=== PATIENT | female | born 1985 | race African-American/Black ===

== ENCOUNTER 2022-02-19 00:24 | Inpatient (IN) | payer MEDICARE, OTHER ==
[~2022-02-19] VITALS: Ht 160 cm; Wt 89.4 kg
--- NOTE | 2022-02-19 00:55 | NUR ---
SHEY FROM SNF FOR AMS AND LOW BP PER STAFF UPON TRIAGE PT C/O VERGARA.
[2022-02-19] MEDS ORDERED: HYDROCODONE/APAP 5/325MG TABLET GT ONE (01:00)
[2022-02-19] MEDS ORDERED: IV NS 0.9% 500 ML BAG IV ONE (01:00)
[2022-02-19] MEDS ORDERED: HYDROCODONE/APAP 5/325MG TABLET ONE (01:01)
--- NOTE | 2022-02-19 01:30 | NUR ---
URINE COLLECTED AND SENT TO LAB
--- NOTE | 2022-02-19 02:45 | NUR ---
AGENCY SALES DEVELOPMENT ASSOCIATE AT BEDSIDE
[2022-02-19 02:54] LABS: BILIRUBIN,URINE NEGATIVE (NEGATIVE); COLOR,URINE YELLOW (YELLOW); LEUKOCYTE ESTERASE ,URINE LARGE (NEGATIVE); NITRITE, URINE NEGATIVE (NEGATIVE); PROTEIN,URINE 100 mg/dl (NEGATIVE); UGLUCOSE NEGATIVE (NEGATIVE); UROBILINOGEN,URINE 0.2 EU/dL (0.2)
[2022-02-19 02:56] LABS: PH,URINE >8.5 (5.0-8.0)
[2022-02-19] MEDS ORDERED: CEFTRIAXONE 1 G VIAL ONE ×2 (03:15→06:38)
[2022-02-19 03:30] LABS: BASOPHILS % (AUTO) 0.1 % (0.0-2.0); HEMATOCRIT 30 % (33-45); HEMOGLOBIN 9.4 g/dL (11.5-14.8); LYMPHOCYTES # (AUTO) 1.5 K/uL (0.8-4.8); LYMPHOCYTES % (AUTO) 7.8 % (20.0-44.0); MEAN CORPUSCULAR HGB CONC 31 g/dl (31.0-36.0); MEAN CORPUSCULAR VOLUME 89 fL (82-100); NEUTROPHILS # (AUTO) 17.1 K/uL (1.8-8.9); NEUTROPHILS % (AUTO) 87.1 % (43.0-81.0); PLATELET COUNT (AUTO) 292 K/uL (150-450); RED BLOOD CELL COUNT(AUTO) 3.43 MIL/uL (4.0-5.2); WHITE BLOOD COUNT (AUTO) 19.7 K/uL (4.3-11.0)
[2022-02-19] MEDS ORDERED: CEFTRIAXONE 1GM BAG (ER ONLY) 1 GM/50 ML PIGGYBACK IV ONE (03:30)
[2022-02-19 03:41] LABS: CALCIUM, SERUM 7.2 mg/dL (8.5-10.1); CREATININE 2.4 mg/dL (0.6-1.3); POTASSIUM 3.2 mmol/L (3.5-5.1)
[2022-02-19] MEDS ORDERED: DEXTROSE 50%-WATER 50 ML DISP.SYRIN ONE ×2 (03:49→04:56)
[2022-02-19 03:51] LABS: BILIRUBIN,DIRECT 0.2 mg/dL (0.0-0.2); BILIRUBIN,TOTAL 0.3 mg/dL (0.2-1.0); TOTAL PROTEIN, SERUM 8.2 g/dL (6.4-8.2)
[2022-02-19 03:55] LABS: ALBUMIN 1.2 g/dL (3.4-5.0)
--- NOTE | 2022-02-19 03:56 | NUR ---
CRITICAL LAB: ALBUMIN 1.2. DR. CHUNG AWARE
[2022-02-19] MEDS ORDERED: DEXTROSE 50%-WATER 50 ML DISP.SYRIN IV ONE ×2 (04:00→05:00)
[2022-02-19] MEDS: ALBUMIN 25% 12.5 GM/50 ML BOTTLE IV ONE ×2 (04:08→04:49)
--- NOTE | 2022-02-19 04:28 | NUR ---
BOWL TOPPER AT BEDSIDE
[2022-02-19] MEDS ORDERED: IV NS 0.9% 1,000 ML BAG IV ONE (04:30)
[2022-02-19] MEDS ORDERED: ALBUMIN 25% 100 ML IV ONE (04:36)
--- NOTE | 2022-02-19 04:52 | NUR ---
accu check blood sugar 44 md notified
[2022-02-19] MEDS ORDERED: MAG HYDROX/AL HYDROX/SIMETH 30 ML UDC PO PRN (05:00)
[2022-02-19] MEDS ORDERED: MAGNESIUM HYDROXIDE 30 ML UDC PO PRN (05:00)
[2022-02-19] MEDS ORDERED: ZOLPIDEM TARTRATE 5 MG TABLET PO PRN (05:00)
[2022-02-19] MEDS ORDERED: ONDANSETRON HCL/PF 4 MG/2 ML VIAL IVP PRN (05:00)
[2022-02-19] MEDS ORDERED: Z GUARD REMEDY 4 OZ OINT TP PRN (05:00)
[2022-02-19] MEDS ORDERED: ACETAMINOPHEN 325 MG TABLET PO PRN (05:00)
--- NOTE | 2022-02-19 05:24 | NUR ---
DORETHA IV LINE INFILTRATED. NEW IV LINE STARTED ON STORM 20G
--- NOTE | 2022-02-19 05:30 | NUR ---
NOTED HUNG CATH WAS OUT ATTEMPTED TO REINSERT X2 AND WAS UNSUCCSFUL
--- NOTE | 2022-02-19 05:46 | NUR ---
2 NURSES ATTEMPTED TO REINSERT CATH AND WAS UNSUDSEFFUL
[2022-02-19 06:22] LABS: BACTERIA,URINE 4+ /HPF (None Seen); RBC,URINE 0-2 /HPF (0-2); WBC,URINE 0-2 /HPF (0-3)
--- NOTE | 2022-02-19 06:40 | NUR ---
COVID SWAB COLLECTED SENT TO LAB
--- NOTE | 2022-02-19 07:02 | NUR ---
accuchcheck blood sugar 101 aware.
--- NOTE | 2022-02-19 07:32 | NUR ---
REPORT GIVEN TO DANICA SUTTON FOR JANES
[2022-02-19] MEDS ORDERED: CHLO473M5 MM (07:49)
[2022-02-19] MEDS ORDERED: BENZ1LOZ58 MM (07:49)
[2022-02-19] MEDS ORDERED: ZINC1CAP3 PO (07:49)
[2022-02-19] MEDS ORDERED: FOLI0.4T6 PO (07:49)
[2022-02-19] MEDS ORDERED: GABA-532 PO (07:49)
[2022-02-19] MEDS ORDERED: ONDA4TAB5 PO (07:49)
[2022-02-19] MEDS ORDERED: ERGO500093 PO (07:49)
[2022-02-19] MEDS ORDERED: AMIN30LI2 PO (07:49)
[2022-02-19] MEDS ORDERED: HYDR-4303 PO (07:49)
[2022-02-19] MEDS ORDERED: BACL20TA PO (07:49)
[2022-02-19] MEDS ORDERED: MULT-24 PO (07:49)
[2022-02-19] MEDS ORDERED: ACET-868 PO (07:49)
[2022-02-19] MEDS ORDERED: ARIP2TAB3 PO (07:49)
[2022-02-19] MEDS ORDERED: FLUD0.1T PO (07:49)
[2022-02-19] MEDS ORDERED: HONE15GE TP (07:49)
[2022-02-19] MEDS ORDERED: DOCU250C14 PO (07:49)
[2022-02-19] MEDS ORDERED: MELA5TAB PO (07:49)
[2022-02-19] MEDS ORDERED: ASCO-340 PO (07:49)
[2022-02-19] MEDS ORDERED: PANT40TA2 PO (07:49)
[2022-02-19 08:07] LABS: LYMPHOCYTES % (MANUAL) 5 % (16-48); MONOCYTES % (MANUAL) 6 % (0-11.0); NEUTROPHILS % (MANUAL) 89 (42-76)
--- NOTE | 2022-02-19 09:21 | NUR ---
PER CLS 10 MINS MORE FOR THE RESULT.
[2022-02-19] MEDS ORDERED: POTASSIUM CHLORIDE 10 MEQ TABLET.SA PO ONE (09:30)
--- NOTE | 2022-02-19 10:06 | NUR ---
GOING TO BED 103
[2022-02-19] MEDS ORDERED: POTASSIUM CHLORIDE 10 MEQ TABLET.SA ONE (10:08)
--- NOTE | 2022-02-19 10:11 | NUR ---
REPORT GIVEN TO LESLEY DUARTE FOR JANES.
--- NOTE | 2022-02-19 10:57 | NUR ---
picc line admin in right femoral area, intact , patent flushing at this time.
[2022-02-19] MEDS: ARIPIPRAZOLE 2 MG TABLET PO SCH (11:00)
[2022-02-19] MEDS: PANTOPRAZOLE 40 MG TABLET.DR PO SCH (11:00)
--- NOTE | 2022-02-19 11:01 | NUR ---
PT ACCEPTED TO [facility] UND[facility] DR[facility] RICK ROOM 423 PLEASE CALL [phone] TRANSPORT WITH [facility] ETA 45 MINS. PER CONNOR SEAMAN.
[2022-02-19 11:20] VITALS: BP 91/66
--- NOTE | 2022-02-19 11:20 | NUR ---
FILM BOOKERNAILHEAD PUNCHER NOTE RECEIVED PATIENT IN BED, FROM ER, DX SEPSIS/UTI, PER DR. LOS IQBAL, ALERT, AWAKE ORIENTED X 2-3, PT WITH TRACH COLLAR, ON COOL AEROSOL AT 4L O2 SAT 95%. NO SOB, NO DISTRESS, BREATHING EVEN, RESPIRATION UNLABORED.SINUS TACH HR 102 ON MONITOR, C/O 9/10 GENERALIZED PAIN, WILL ADMINISTER PAIN MEDS, RIGHT FEMORAL GROIN PICC LINE TLC, FLUSHES WELL, CDI, SITE CLEAR. HUNG CATH INSERTED, WITH SMALL AMOUNT OF CLOUDY URINE. SEE NURSING FLOWSHEET FOR SKIN ISSUES. HAS MULTIPLE WOUNDS, ABLE TO TAKE PICTURE OF RIGHT UPPER BACK AND SACRAL/LOWER BACK. REFUSED TO HAVE THE REST OF SKIN ASSESSMENT AND PHOTOS OF SKIN ISSUES. SAFETY MEASURES IN PLACE. BED LOW/LOCKED. HOB 3O DEG, SR UP X 2, CALL LIGHT WITHIN REACH. WILL CONTINUE TO MONITOR.
[2022-02-19] MEDS: MORPHINE SULFATE INJ 4 MG/ML DISP.SYRIN IV PRN ×2 (11:38→19:57)
[2022-02-19] MEDS: PROSOURCE / PROSTAT (PYXIS) 30 ML UDC PO SCH ×2 (12:53→16:49)
[2022-02-19] MEDS: FLUDROCORTISONE 0.1 MG TABLET PO SCH ×2 (12:53→21:00)
[2022-02-19] MEDS: GABAPENTIN 100 MG CAPSULE PO SCH ×2 (12:53→16:49)
[2022-02-19] MEDS: IV NS 0.9% 1,000 ML IV PRN ×2 (14:12→23:11)
--- NOTE | 2022-02-19 15:03 | NUR ---
RN NOTES PATIENT ASKING FOR US OF BLE,STATED THERES SOMETHING WRONG WITH IT. NEW ORDERS RECEIVED FOR DVT STUDY OF BOTH LEGS. BP OS 54/25 REPEAT IS 67/36. COULD NOT GIVE PAIN MEDS. NEW ORDER TO GIVE 500 ML NS BOLUS ALSO INFORMED DR. IQBAL, PATIENT REFUSED ALL HER ORAL MEDICATIONS EARLIER INCLUDING FLORINEF AND NEURONTIN, NEXT DOSE FOR PO FLORINEF IS NOT UNTIL 2100. NO NEW ORDERS RECEIVED.
[2022-02-19 16:00] VITALS: BP 80/64
[2022-02-19] MEDS ORDERED: IV NS 0.9% 500 ML IV ONE (16:00)
--- NOTE | 2022-02-19 16:38 | NUR ---
RN NOTES DR. LOS IQBAL, NOTIFIED REPEAT BP 87/34. PER HIM IT'S FINE. NO NEW ORDERS.
[2022-02-19] MEDS: CHLORHEXIDINE GLUCONATE 15 ML UDC MM SCH (16:49)
--- NOTE | 2022-02-19 18:28 | NUR ---
RN NOTES COLOSTOMY BAG IN PLACE ON LEFT ABDOMEN
--- NOTE | 2022-02-19 18:32 | NUR ---
IMPROVEMENT ANALYST CLOSING NOTE PATIENT IN BED, ALERT, AWAKE ORIENTED X 2-3, PT WITH TRACH COLLAR, ON COOL AEROSOL AT 4L O2 SAT 97%. NO SOB, NO DISTRESS, BREATHING EVEN, RESPIRATION UNLABORED.SINUS TACH HR 105 ON MONITOR, C/O 8/10 GENERALIZED PAIN, ON PAIN MEDS. RIGHT FEMORAL GROIN PICC LINE TLC, WITH NS AT 125 ML/HR, CDI, SITE CLEAR. HUNG CATH INSERTED, WITH SMALL AMOUNT OF CLOUDY URINE. HAS MULTIPLE WOUNDS, ABLE TO TAKE PICTURE OF RIGHT UPPER BACK AND SACRAL/LOWER BACK. REFUSED TO HAVE THE REST OF SKIN ASSESSMENT AND PHOTOS OF SKIN ISSUES. SAFETY MEASURES IN PLACE. BED LOW/LOCKED. HOB 3O DEG, SR UP X 2, CALL LIGHT WITHIN REACH. ALL NEEDS MET AT THIS TIME. WILL ENDORSE TO NEXT SHIFT FOR JANES.
[2022-02-19] MEDS: LORAZEPAM 0.5 MG TABLET PO PRN ×3 (19:57→21:03)
[2022-02-19] MEDS: diphenhydrAMINE HCL ELIX 25 MG/10 ML UDC PO PRN ×3 (19:57→21:03)
--- NOTE | 2022-02-19 19:58 | NUR ---
RN Note Pt complains of feeling anxious and reports of 9/10 generalized pain. Pt also requests for benadryl. Pt given Benadryl 25 mg, morphine 4 mg, and ativan 0.5 mg. Will monitor for effectiveness.
[2022-02-19 20:00] VITALS: BP 191/82
--- NOTE | 2022-02-19 20:26 | NUR ---
RN Note Pt refused to take any meds orally. Benadryl and Ativan returned to [facility] appropriately.
--- NOTE | 2022-02-19 20:28 | NUR ---
RN Note Pt appears to be more relaxed after giving ativan and reports her pain is still there but has gone down.
[2022-02-19] MEDS: HEPARIN SODIUM, PORCINE 5000 UNITS/1 ML VIAL SQ SCH (21:00)
[2022-02-19] MEDS: DOCUSATE SODIUM 250 MG CAPSULE PO SCH (21:00)
--- NOTE | 2022-02-19 21:04 | NUR ---
RN Note Pt states she's changed her mind and wants to take her ativan and benadryl now. Pt successfully given both meds orally.
--- NOTE | 2022-02-19 21:26 | NUR ---
oil well logging engineer opening Note Pt received in bed, awake, A&O x2-3, noted to be groaning at the moment. Pt on T-piece cool aerosol with trach collar; current O2sat in mid to high 90s; no s/s of resp distress, no SOB noted, non-labored and equal breathing. Trach collar C/D/I/P. Attached to external monitor, currently showing ST with HR 102. Pt noted to have right femoral PICC line with NS at 125 ml/hr; intact and patent with no s/s of infiltration; flushes easily with no resistance. Bed in lowest position, call light within reach, side rails up x3. Will continue to monitor throughout the night.
--- NOTE | 2022-02-19 21:46 | NUR ---
RN Note Pt refused scheduled meds Colace 250 mg, fludrocortisone 0.1 mg, and heparin 5000 units.
[2022-02-20] VITALS: BP 55/27
--- NOTE | 2022-02-20 00:24 | NUR ---
RN Note Pt's current BP: 128/41, HR: 99.
[2022-02-20] MEDS: MORPHINE SULFATE INJ 4 MG/ML DISP.SYRIN IV PRN (00:36)
--- NOTE | 2022-02-20 00:37 | NUR ---
RN Note Pt complains of 10/10 generalized pain that's described as burning and aching. Pt requests for morphine. Pt administered morphine 4 mg IV. Will monitor for effectiveness.
--- NOTE | 2022-02-20 01:24 | NUR ---
TELE/RN: PT BP 55/27 WITH AUTOMATIC CUFF. 52/48 WITH MANUAL CUFF. PT IS ASYMPTOMATIC ALERT AND ORIENTED. SPOKE WITH DR. KATZ. NEW ORDER RECEIVED FOR 1000ML NS BOLUS x1 NOW. CARRIED OUT.
[2022-02-20] MEDS ORDERED: IV NS 0.9% 1,000 ML IV ONE ×2 (01:30→02:30)
--- NOTE | 2022-02-20 02:13 | NUR ---
RN Note After administering 1L of bolus, BP: 56/33 HR: 105. Notified Dr. Victor
--- NOTE | 2022-02-20 02:17 | NUR ---
TELE/RN: SPOKE WITH DR. KATZ ANOTHER 1000ML NS BOLUS ORDERED.
[2022-02-20 04:00] VITALS: BP 69/24
--- NOTE | 2022-02-20 04:53 | NUR ---
RN Note Took pt's manual BP 72/48. Addendum: 02/20/22 at 0457 by PRINCESS LELE SUTTON Pt remains A&O x3 with no s/s of confusion or loss of consciousness
--- NOTE | 2022-02-20 04:55 | NUR ---
TELE/RN: DR. KATZ NOTIFIED OF LATEST BP 72/48 NO NEW ORDERS AT THIS TIME.
[2022-02-20] MEDS ORDERED: CEFTRIAXONE 1 G in IV D5W 50 ML IV SCH ×2 (05:00→06:00)
[2022-02-20] MEDS: FLUDROCORTISONE 0.1 MG TABLET PO SCH ×3 (05:47→21:00)
--- NOTE | 2022-02-20 06:05 | NUR ---
TELE/RN: DR. KATZ MADE AWARE OF PT POSITIVE BLOOD CULTURES (GRAM NEGATIVE RODS) AND PT URINE OUTPUT. NO NEW ORDERS.
--- NOTE | 2022-02-20 06:32 | NUR ---
tetryl wringer operator Closing Note Pt remains in bed, A&O x2-3, slept intermittently throughout the night; currently asleep but easily arousable; pt able to make needs known. Pt remains on T-piece cool aerosol with trach collar at 4L; with O2sat ranging from 92%-95% during night; no s/s of resp distress, no SOB noted, non-labored and equal breathing. Pt attached to external monitor, remains ST with ST depression, HR 103. Right femoral PICC line with NS at 125 ml/hr; intact and patent with no s/s of infiltration; flushes easily with no resistance. Ostomy pink and moist with no s/s of necrosis; ostomy bag clean and empty. All due meds and fluids given. Bed in lowest position, call light within reach, side rails up x3. Will endorse to dayshift nurse to continue care.
[2022-02-20 06:35] LABS: BASOPHILS % (AUTO) 0.2 % (0.0-2.0); EOSINOPHILS % (AUTO) 3.8 % (0.0-6.0); HEMATOCRIT 25 % (33-45); LYMPHOCYTES # (AUTO) 0.9 K/uL (0.8-4.8); LYMPHOCYTES % (AUTO) 8.4 % (20.0-44.0); MEAN CORPUSCULAR HGB CONC 32 g/dl (31.0-36.0); MEAN CORPUSCULAR VOLUME 89 fL (82-100); MONOCYTES # (AUTO) 0.4 K/uL (0.1-1.30); MONOCYTES % (AUTO) 3.5 % (2.0-12.0); NEUTROPHILS # (AUTO) 9.3 K/uL (1.8-8.9); NEUTROPHILS % (AUTO) 84.1 % (43.0-81.0); PLATELET COUNT (AUTO) 186 K/uL (150-450); RED BLOOD CELL COUNT(AUTO) 2.86 MIL/uL (4.0-5.2); WHITE BLOOD COUNT (AUTO) 11.1 K/uL (4.3-11.0)
--- NOTE | 2022-02-20 07:00 | NUR ---
bindery machine setter opening Note Pt received in bed, SSLEEP, BUT ANSWER QUESTIONSA&O x2, . Pt on T-piece cool aerosol with trach collar; current O2sat in mid to high 90s; no s/s of resp distress, no SOB noted, non-labored and equal breathing. Trach collar C/D/I/P. Attached to external monitor, currently showing ST with HR 102. Pt noted to have right femoral PICC line with NS at 125 ml/hr; intact and patent with no s/s of infiltration; flushes easily with no resistance. Bed in lowest position, call light within reach, side rails up x3. Will continue to monitor throughout the night.
[2022-02-20 07:02] LABS: CALCIUM, SERUM 6.4 mg/dL (8.5-10.1); PHOSPHORUS 2.8 mg/dL (2.5-4.9); POTASSIUM 3.2 mmol/L (3.5-5.1)
[2022-02-20] MEDS: PANTOPRAZOLE 40 MG TABLET.DR PO SCH ×2 (07:30→08:40)
[2022-02-20 07:41] LABS: MAGNESIUM 1.2 mg/dL (1.8-2.4)
[2022-02-20 08:00] VITALS: BP 112/94
[2022-02-20] MEDS ORDERED: DEXTROSE 50%-WATER 50 ML DISP.SYRIN IVP PRN (08:00)
[2022-02-20 08:48] LABS: THYROID STIMULATING HORMONE 1.407 uIU/mL (0.358-3.74)
[2022-02-20] MEDS: DOCUSATE SODIUM 250 MG CAPSULE PO SCH ×3 (09:00→21:00)
[2022-02-20] MEDS: ARIPIPRAZOLE 2 MG TABLET PO SCH ×2 (09:00→09:17)
[2022-02-20] MEDS: MULTIVITAMINS,THERAGRAN 1 UDTAB TABLET PO SCH ×2 (09:00→09:16)
[2022-02-20] MEDS: FOLIC ACID 1 MG TABLET PO SCH ×2 (09:00→09:17)
[2022-02-20] MEDS: ZINC SULFATE 220 MG CAPSULE PO SCH ×2 (09:00→09:16)
[2022-02-20] MEDS: ASCORBIC ACID 500 MG TABLET PO SCH ×2 (09:00→09:18)
[2022-02-20] MEDS: GABAPENTIN 100 MG CAPSULE PO SCH ×3 (09:00→17:09)
[2022-02-20] MEDS: CHLORHEXIDINE GLUCONATE 15 ML UDC MM SCH ×3 (09:00→17:00)
[2022-02-20] MEDS: PROSOURCE / PROSTAT (PYXIS) 30 ML UDC PO SCH ×4 (09:00→17:00)
[2022-02-20] MEDS: HEPARIN SODIUM, PORCINE 5000 UNITS/1 ML VIAL SQ SCH ×2 (09:19→21:00)
[2022-02-20] MEDS: HYDROCORTISONE SOD SUCCINATE 100 MG/2 ML VIAL IV SCH ×3 (09:34→23:16)
[2022-02-20] MEDS ORDERED: MAGNESIUM OXIDE 400 MG TABLET PO ONE (10:00)
[2022-02-20 10:29] LABS: ABG BASE EXCESS -10.6 mmol/L; ABG OXYGEN SATURATION 97.4 % (92.0-98.5); ABG PCO2 30.1 mmHg (35.0-45.0); ABG PH 7.305 (7.350-7.450); AaDO2 135.2 mmHg; COHb 0.2 % (0.5-1.5); MetHb 0.3 % (0.0-1.5); O2Hb 96.9 % (94.0-97.0); SITE, ABG Left Radial
[2022-02-20] MEDS: POTASSIUM CHLORIDE 10 MEQ TABLET.SA PO SCH ×2 (11:00→12:00)
--- NOTE | 2022-02-20 11:10 | NUR ---
RN NOTES: PT REFUSES TO RECEIVE ALL HER ORAL MEDS X 3 , EXPLAIN RISK AND BENEFITS STILL REFUSES, LOS IQBAL NP AWARE
[2022-02-20 12:00] VITALS: BP 103/62
[2022-02-20] MEDS: IV NS 0.9% 1,000 ML IV PRN (12:51)
[2022-02-20] MEDS: POTASSIUM CL. PREMIX PERIPHER. 50 ML IV SCH ×4 (12:51→16:18)
[2022-02-20] MEDS ORDERED: MENTHOL/CETYLPYRD (CEPACOL) 1 LOZ LOZENGE PO PRN (13:00)
[2022-02-20] MEDS: MENTHOL/CETYLPYRD (CEPACOL) 1 LOZ LOZENGE MM PRN ×2 (15:27→17:15)
[2022-02-20 16:00] VITALS: BP 69/34
[2022-02-20] MEDS ORDERED: IV NS 0.9% 500 ML IV ONE (17:30)
--- NOTE | 2022-02-20 17:30 | NUR ---
RN notes: BP 68/33 called Enmanuel Yadav MOBILE LOUNGE DRIVER with order to give NS 500 ml bolus now and encourage pt to take her florinef will help her renal insufficiency and regulate her blood pressure
[2022-02-20] MEDS ORDERED: CEFEPIME 1 GM in IV D5W 50 ML IV SCH (19:30)
[2022-02-20 20:00] VITALS: BP 104/86
--- NOTE | 2022-02-20 20:00 | NUR ---
second floor operator opening Note Pt in bed, awake, A&O x2-3, currently asleep but easily arousable. Pt on T-piece cool aerosol at 4L with trach collar; current O2sat 98%; no s/s of resp distress, no SOB noted, non-labored and equal breathing. Trach collar C/D/I/P. On external monitor, ST with HR 105. Pt femoral PICC line intact and patent with NS at 125 ml/hr; flushes easily with no resistance. Claros draining cloudy and jenna urine. Bed in lowest position, call light within reach, side rails up x3. Will continue to monitor throughout the night.
--- NOTE | 2022-02-20 20:13 | NUR ---
assembler metal building Closing Note Pt remains in bed, A&O x2-3, pt slept most of the day , woke up around 5PM; pt able to make needs known. Pt remains on T-piece cool aerosol with trach collar at 4L; with O2sat ranging from 92%-95% during night; no s/s of resp distress, no SOB noted, non-labored and equal breathing. Pt attached to external monitor, remains ST with ST depression, HR 103. Right femoral PICC line with NS at 125 ml/hr; intact and patent with no s/s of infiltration; flushes easily with no resistance. Ostomy pink and moist with no s/s of necrosis; ostomy bag clean and empty. All due meds and fluids given. Bed in lowest position, call light within reach, side rails up x3. Will endorse to nightshift nurse to continue care.
--- NOTE | 2022-02-20 21:00 | NUR ---
RN Note Pt refused to take oral meds scheduled for 2100 and the heparin. Pt agreed to take the solu-cortef via central line.
[2022-02-20] MEDS: CEFEPIME 2 GM in IV D5W 100 ML IV SCH (23:27)
[2022-02-21] VITALS: BP 99/53
[2022-02-21] MEDS: IV NS 0.9% 1,000 ML IV PRN ×3 (01:55→20:54)
--- NOTE | 2022-02-21 04:00 | NUR ---
RN Note Patient refused to have 0400 VS taken.
[2022-02-21] MEDS: FLUDROCORTISONE 0.1 MG TABLET PO SCH ×3 (05:00→20:30)
--- NOTE | 2022-02-21 05:30 | NUR ---
RN Note Patient refused scheduled med fludrocortisone
[2022-02-21] MEDS: HYDROCORTISONE SOD SUCCINATE 100 MG/2 ML VIAL IV SCH ×3 (05:55→20:28)
--- NOTE | 2022-02-21 06:35 | NUR ---
retread supervisor Closing Note Pt remains in bed, A&O x2-3, currently asleep, easily arousable; slept well throughout the night; pt verbal and able to make needs known. Pt remains on T-piece cool aerosol with trach collar at 4L; with O2sat ranging from 97%-99% during night; no s/s of resp distress, no SOB noted, non-labored and equal breathing. Pt attached to external monitor, noted to have been ST during start of shift, now currently SR with HR 98 . Right femoral PICC line intact and patent with NS at 125 ml/hr. Ostomy pink and moist with no s/s of necrosis; ostomy bag emptied with output of 150 ml; pt refused to change whole ostomy bag. All due meds and fluids given. Bed in lowest position, call light within reach, side rails up x3. Will endorse to dayshift nurse to continue care.
[2022-02-21 07:04] LABS: EOSINOPHILS % (AUTO) 1.3 % (0.0-6.0); HEMATOCRIT 25 % (33-45); HEMOGLOBIN 7.6 g/dL (11.5-14.8); LYMPHOCYTES # (AUTO) 1.2 K/uL (0.8-4.8); LYMPHOCYTES % (AUTO) 10.8 % (20.0-44.0); MEAN CORPUSCULAR HGB CONC 30 g/dl (31.0-36.0); MEAN CORPUSCULAR VOLUME 91 fL (82-100); MONOCYTES # (AUTO) 0.3 K/uL (0.1-1.30); MONOCYTES % (AUTO) 2.5 % (2.0-12.0); NEUTROPHILS # (AUTO) 9.7 K/uL (1.8-8.9); NEUTROPHILS % (AUTO) 85.4 % (43.0-81.0); PLATELET COUNT (AUTO) 177 K/uL (150-450); RED BLOOD CELL COUNT(AUTO) 2.74 MIL/uL (4.0-5.2); WHITE BLOOD COUNT (AUTO) 11.3 K/uL (4.3-11.0)
[2022-02-21] MEDS: PANTOPRAZOLE 40 MG TABLET.DR PO SCH (07:30)
[2022-02-21 08:06] LABS: CREATININE 1.3 mg/dL (0.6-1.3); MAGNESIUM 1.3 mg/dL (1.8-2.4); POTASSIUM 3.7 mmol/L (3.5-5.1)
--- NOTE | 2022-02-21 08:09 | NUR ---
RN opening notes Pt received in bed, resting, is able to answer questions and refused chest X ray for second time this morning A&O x3, . Pt on T-piece cool aerosol with trach collar; current O2sat 97% ; breathing is non-labored lung sounds clear bilaterally. Trach collar C/D/I/P. Attached to external monitor, currently showing SR w/ hR in the low hundreds. Pt has right femoral PICC line with NS at 125 ml/hr; intact and patent with no s/s of infiltration; flushes easily with no resistance. Bed in lowest position, call light within reach, side rails up x3. Will continue to monitor throughout shift .
[2022-02-21 08:40] LABS: CALCIUM, SERUM 6.2 mg/dL (8.5-10.1)
[2022-02-21] MEDS: FOLIC ACID 1 MG TABLET PO SCH (09:00)
[2022-02-21] MEDS: HEPARIN SODIUM, PORCINE 5000 UNITS/1 ML VIAL SQ SCH ×2 (09:00→20:30)
[2022-02-21] MEDS: DOCUSATE SODIUM 250 MG CAPSULE PO SCH ×2 (09:00→20:16)
[2022-02-21] MEDS: ARIPIPRAZOLE 2 MG TABLET PO SCH (09:00)
[2022-02-21] MEDS: CHLORHEXIDINE GLUCONATE 15 ML UDC MM SCH ×2 (09:00→17:00)
[2022-02-21] MEDS: ASCORBIC ACID 500 MG TABLET PO SCH (09:00)
[2022-02-21] MEDS: MULTIVITAMINS,THERAGRAN 1 UDTAB TABLET PO SCH (09:00)
[2022-02-21] MEDS: PROSOURCE / PROSTAT (PYXIS) 30 ML UDC PO SCH ×3 (09:00→17:00)
[2022-02-21] MEDS: ZINC SULFATE 220 MG CAPSULE PO SCH (09:00)
--- NOTE | 2022-02-21 09:00 | NUR ---
LUMBER BUYER NOTE RT AT BEDSIDE TRACH CARE DONE SUCTION DONE
[2022-02-21] MEDS: MENTHOL/CETYLPYRD (CEPACOL) 1 LOZ LOZENGE MM PRN ×4 (09:26→21:44)
--- NOTE | 2022-02-21 09:26 | NUR ---
NURSE ASSISTANT NOTE CEPACOL,PO GIVEN ORDERED WILL MONITOR, KM WOUND CARE NURSE AT BEDSIDE STRONGLY REFUSED TO BE CHECKED,AND PLACE AIR MATRASS
[2022-02-21] MEDS ORDERED: MAGNESIUM OXIDE 400 MG TABLET PO ONE ×2 (09:30→11:30)
[2022-02-21] MEDS: GABAPENTIN 100 MG CAPSULE PO SCH ×2 (09:31→17:10)
--- NOTE | 2022-02-21 09:45 | NUR ---
WOUND CARE CONSULT: PT REFUSED SKIN ASSESSMENT. REVIEWED CHART, NURSING DOCUMENTATION AND PHOTOS WHICH INDICATE SACRAL AND BACK STAGE 4 PRESSURE ULCERS, WOUND TO POSTERIOR SCALP AND RT ELBOW REDNESS, ALL PRESENT ON ADMISSION. SURGICAL CONSULT CALLED TO DR ROLLE. PT IS REFUSING LOW AIRLOSS MATTRESS AT THIS TIME. DISCUSSED SKIN PROTECTION WITH NURSING STAFF. IN AGREEMENT WITH PLAN OF CARE.
--- NOTE | 2022-02-21 10:35 | NUR ---
RN Notes Patient refused 0800 Vital signs check
--- NOTE | 2022-02-21 10:44 | NUR ---
RN NOTE PATIENT STRONGLY REFUSED VITAL SIGNS, BREAKFAST, CHEST X RAY AND SCHEDULED MED WITH EXCEPTION OF NEURONTIN DR ARMIJO NOTIFIED
[2022-02-21] MEDS: Magnesium 1GM/D5W 100ML PREMIX 100 ML IV SCH ×4 (11:04→14:19)
--- NOTE | 2022-02-21 11:20 | NUR ---
WIRE DRAWING DIE MAKER NOTE SPOKE WITH DR ARMIJO NOTIFIED THAT STRANGELY REFUSED TO CHECK BP AND REFUSED NORCO FOR PAIN ASKED DR ARMIJO FOR MORPHINE PER HER REQUEST STATED WILL ORDER PAIN MANAGEMENT DOCTOR , ALSO STACY WOUND CARE PA AT BEDSIDE REFUSED TO BE CHECKED
--- NOTE | 2022-02-21 12:06 | NUR ---
ANTIQUE FINISHER NOTE CALLED TO DR CUNHA PAIN MANAGEMENT STATED THAT WILL SEE PATIENT TOMORROW WILL F\U
--- NOTE | 2022-02-21 13:21 | NUR ---
telecommunication operator note still refused vs to be taken ,wants to, place g tube feeding, dr lang notified
--- NOTE | 2022-02-21 15:23 | NUR ---
HEDGE FUND TRADER NOTE PATIENT STILL STRANGELY REFUSING TO BE CHECK BP ,AND VS , OFFERED AND EXPLAINED X3 STILL REFUSION , WILL F\U
[2022-02-21 15:31] VITALS: BP 74/44
--- NOTE | 2022-02-21 15:51 | NUR ---
SUPERVISOR BEATER ROOM NOTE RT AT BEDSIDE, TRACH AND SUCTION DONE TOLERATED
[2022-02-21 16:00] VITALS: BP 74/44
--- NOTE | 2022-02-21 16:16 | NUR ---
DUST HANDLER NOTE STILL REFUSED TO CHECK VS
--- NOTE | 2022-02-21 16:42 | NUR ---
RN NOTES SPOKE WITH DR. ARMIJO NOTIFIED THAT PATIENTS BP WAS 74/44 AND IN SEVER AMOUNT OF PAIN. PRESCRIBED NORCO 10-325 ONE TIME DOSE FOR SEVER PAIN Addendum: 02/21/22 at 1732 by SUZAN VÁZQUEZ RN dr armijo aware that bp 71/44 at this time ,no further orders given for blood pressure ,patient alert oriented saturation 98%
[2022-02-21] MEDS ORDERED: HYDROCODONE/APAP 10/325MG TABLET PO ONE (17:00)
[2022-02-21 17:39] VITALS: BP 92/56
--- NOTE | 2022-02-21 18:00 | NUR ---
telegraph inspector note recheck bp 92/52 saturation 98% will cont to monitor
--- NOTE | 2022-02-21 18:29 | NUR ---
RN CLOSING NOTE PATIENT IS A/O X4 ON COOL AEROSOL T PIECE SATING AT 96% SINUS RHYTHM PATIENT IS REFUSING MOST MEDS WITH EXCEPTION OF GABAPENTIN AND NEW SCRIP OF NORCO 10/325 ONE TIME DOSE AND IV MEDS. PATIENT REFUSAL DUE TO PAIN IN THE THROAT. BLOOD PRESSURE REMAINED STABLE THOUGHT THE SHIFT, RIGHT FEMORAL PICC INTACT AND PATENT FLUSHES WITH EASE. IV NS @125ML/H PAIN SPECIALIST TO COME FOR CONSULT TMW
--- NOTE | 2022-02-21 19:40 | NUR ---
RN OPENING NOTES: RECEIVED PT IN BED, BOTH EYES CLOSED, A/OX2-3 AND VERBALLY RESPONSIVE. PT IS ON COOL AEROSOL WITH T-PIECE TRACH COLLAR AND PT TOLERATED WELL. IV ACCESS ON RT FEMORAL PICC LINE, RUNNING NS 125CC/HR. NO C/O PAIN OR DISCOMFORT AT THIS MOMENT. NO ACUTE DISTRESS. COLOSTOMY BAG IN PLACE ON LLQ. HUNG CATHETER IN PLACE. RUNNING BY GRAVITY. ALL SAFETY MEASURES IN PLACE. SIDERAILS UP X3, BED IN LOWEST POSITION AND LOCKED. PLACE CALL LIGHT WITH IN REACH. WILL CONTINUE TO MONITOR
[2022-02-21 20:00] VITALS: BP 91/48
[2022-02-21] MEDS: CEFEPIME 2 GM in IV D5W 100 ML IV SCH (20:10)
[2022-02-21] MEDS: diphenhydrAMINE HCL ELIX 25 MG/10 ML UDC PO PRN (20:10)
--- NOTE | 2022-02-21 20:15 | NUR ---
RN NOTES: PT C/O ITCHINESS ALL OVER HER BODY. BENADRYL GIVEN PER PRN ORDER AND PT TOLERATED WELL. HOLD COLACE, PT HAS LOOSE BM. WILL CONTINUE TO MONITOR
[2022-02-21] MEDS: HYDROGEL DRESSING 90 GM TUBE TP SCH (20:54)
--- NOTE | 2022-02-21 21:44 | NUR ---
RN NOTES: PT C/O SORE THROAT, CEPACOL LOZENGE GIVEN AND PT TOLERATED WELL. WILL CONTINUE TO MONITOR
[2022-02-21] MEDS: HYDROCODONE/APAP 5/325MG TABLET PO PRN (23:14)
--- NOTE | 2022-02-21 23:17 | NUR ---
RN NOTES: PT C/O GENERALIZED BODY PAIN, 7/10 PAIN SCALE, NORCO GIVEN PER PRN ORDERED. PT TOLERATED WELL. WILL CONTINUE TO MONITOR
[2022-02-22] VITALS: BP 96/63
[2022-02-22] MEDS: HYDROCORTISONE SOD SUCCINATE 100 MG/2 ML VIAL IV SCH ×3 (05:00→20:26)
[2022-02-22] MEDS: FLUDROCORTISONE 0.1 MG TABLET PO SCH ×3 (05:00→21:00)
--- NOTE | 2022-02-22 05:00 | NUR ---
RN NOTES: PT STRONGLY REFUSED 4 AM VITAL SIGN CHECKING AND MORNING LAB WORKS. EXPLAINED THE RISK AND BENEFITS BUT STILL REFUSED. CHARGE NURSE AWARE.
[2022-02-22] MEDS: IV NS 0.9% 1,000 ML IV PRN ×3 (05:43→23:14)
--- NOTE | 2022-02-22 06:05 | NUR ---
RN NOTES: PT REFUSED TO TAKE MORNING MEDS SOLU- CORTEF AND FLORINEF, OFFERED SEVERAL TIMES BUT STILL REFUSED. UNABLE TO CHECK THE COLOSTOMY BAG. UNABLE TO CHANGE THE PT AND GIVE BED BATH. EXPLAINED THE RISK AND BENEFITS, BUT STILL REFUSED. PT MENTIONED, "GO AWAY FROM HERE, I WANT TO SLEEP." WILL CONTINUE TO MONITOR
--- NOTE | 2022-02-22 06:25 | NUR ---
RN CLOSING NOTES: PT IN BED, BOTH EYES CLOSED, A/OX2-3 AND VERBALLY RESPONSIVE. PT IS ON COOL AEROSOL WITH T-PIECE TRACH COLLAR AND PT TOLERATED WELL. O2 SAT 99%. IV ACCESS ON RT FEMORAL PICC LINE, RUNNING NS 125CC/HR. NO C/O PAIN OR DISCOMFORT AT THIS MOMENT. NO ACUTE DISTRESS. COLOSTOMY BAG IN PLACE ON LLQ. UNABLE TO SEE THE COLOSTOMY BAG, PT STRONGLY REFUSED TO LET HER TOUCH. HUNG CATHETER IN PLACE. RUNNING BY GRAVITY. NOTED YELLOWISH/CLEAR URINE. PT TOOK HER NIGHT MEDICATIONS BUT STRONGLY REFUSED HER MORNING SHIFT MEDS. ALL SAFETY MEASURES IN PLACE. SIDERAILS UP X3, BED IN LOWEST POSITION AND LOCKED. PLACE CALL LIGHT WITH IN REACH. WILL ENDORSE TO MORNING SHIFT NURSE.
[2022-02-22] MEDS: PANTOPRAZOLE 40 MG TABLET.DR PO SCH (07:30)
--- NOTE | 2022-02-22 07:57 | NUR ---
RN OPENING NOTES: PT IN BED, BOTH EYES CLOSED, A/OX2-3 AND VERBALLY RESPONSIVE. PT IS ON COOL AEROSOL WITH T-PIECE TRACH COLLAR AND PT TOLERATED WELL. O2 SAT 99%. IV ACCESS ON RT FEMORAL PICC LINE, RUNNING NS 125CC/HR. NO C/O PAIN OR DISCOMFORT AT THIS MOMENT. NO ACUTE DISTRESS. COLOSTOMY BAG IN PLACE ON LLQ. HUNG CATHETER IN PLACE. RUNNING BY GRAVITY. NOTED YELLOWISH/CLEAR URINE. ALL SAFETY MEASURES IN PLACE. SIDERAILS UP X3, BED IN LOWEST POSITION AND LOCKED. PLACE CALL LIGHT WITH IN REACH.
--- NOTE | 2022-02-22 07:58 | NUR ---
RN NOTE PATIENT REFUSED ALL MORNING VITALS, EXPLAINED TO PATIENT THE IMPORTANCE OF VITAL SIGNS PATIENT STATED " LEAVE ME ALONE, I DONT WANT TO BE TOUCHED, GET OUT OF MY ROOM".
--- NOTE | 2022-02-22 08:04 | NUR ---
RN NOTE DR ARMIJO AWARE THAT PATIENT IS REFUSING ALL MEDICATION AND 0800 VITAL SIGNS- NO FURTHER ACTION
[2022-02-22] MEDS: PROSOURCE / PROSTAT (PYXIS) 30 ML UDC PO SCH ×3 (08:52→16:02)
[2022-02-22] MEDS: ARIPIPRAZOLE 2 MG TABLET PO SCH (08:52)
[2022-02-22] MEDS: ASCORBIC ACID 500 MG TABLET PO SCH (08:52)
[2022-02-22] MEDS: ZINC SULFATE 220 MG CAPSULE PO SCH (08:52)
[2022-02-22] MEDS: DOCUSATE SODIUM 250 MG CAPSULE PO SCH ×2 (08:52→21:00)
[2022-02-22] MEDS: GABAPENTIN 100 MG CAPSULE PO SCH ×2 (08:52→16:01)
[2022-02-22] MEDS: FOLIC ACID 1 MG TABLET PO SCH (08:52)
[2022-02-22] MEDS: CHLORHEXIDINE GLUCONATE 15 ML UDC MM SCH ×2 (08:52→16:01)
[2022-02-22] MEDS: MULTIVITAMINS,THERAGRAN 1 UDTAB TABLET PO SCH (08:52)
[2022-02-22] MEDS: HEPARIN SODIUM, PORCINE 5000 UNITS/1 ML VIAL SQ SCH ×2 (08:53→21:00)
[2022-02-22] MEDS: HYDROGEL DRESSING 90 GM TUBE TP SCH (08:53)
--- NOTE | 2022-02-22 08:53 | NUR ---
RN NOTE 0900 MEDICATIONS NOT ADMINISTERED DUE TO PATIENT REFUSING MEDICATION. MD MADE AWARE. PATIENT ALSO REFUSED AM LABS
--- NOTE | 2022-02-22 10:46 | NUR ---
RN NOTE ATTEMPTED TO PERFORM NURSING PHYSICAL ASSESSMENT PATIENT STATED" LEAVE MY ROOM RIGHT NOW" AWARE
[2022-02-22] MEDS: MENTHOL/CETYLPYRD (CEPACOL) 1 LOZ LOZENGE MM PRN (11:43)
[2022-02-22] MEDS: MORPHINE SULFATE INJ 4 MG/ML DISP.SYRIN IV PRN ×2 (12:40→16:45)
[2022-02-22 12:41] VITALS: BP 105/68
--- NOTE | 2022-02-22 12:49 | NUR ---
RN NOTE PATIENT REQUESTED MORPHINE, INFORMED PATIENT I NEEDED A BLOOD PRESSURE READING PRIOR TO ADMINSITRATION. PATIENT HAD BEEN REFUSING VITAL SIGNS UP TO THIS POINT. PATIENT AGREED TO GET A MANUAL BP READING BLOOD PRESSURE 105/68 SECONDARY READING 108/66.
--- NOTE | 2022-02-22 12:50 | NUR ---
RN NOTE PATIENT REFUSED TO BE REPOSITION PER HOSPITAL PROTOCOL, PATIENT EDUCATED ON THE IMPORTANCE AND STILL REFUSED.
--- NOTE | 2022-02-22 14:15 | NUR ---
RN NOTE ATTEMPTED TO PERFORM WOUND CARE ON PATIENT, PATIENT REFUSED. EXPLAINED THE IMPORTANCE OF WOUND CARE PATIENT STATED " I DO NOT WANT TO DO IT RIGHT NOW".
[2022-02-22 15:06] LABS: BASOPHILS % (AUTO) 0.2 % (0.0-2.0); EOSINOPHILS % (AUTO) 0.2 % (0.0-6.0); HEMATOCRIT 27 % (33-45); HEMOGLOBIN 8.3 g/dL (11.5-14.8); LYMPHOCYTES # (AUTO) 0.5 K/uL (0.8-4.8); LYMPHOCYTES % (AUTO) 12.8 % (20.0-44.0); MEAN CORPUSCULAR HGB CONC 31 g/dl (31.0-36.0); MEAN CORPUSCULAR VOLUME 90 fL (82-100); MONOCYTES # (AUTO) 0.2 K/uL (0.1-1.30); MONOCYTES % (AUTO) 4.8 % (2.0-12.0); NEUTROPHILS # (AUTO) 3.4 K/uL (1.8-8.9); PLATELET COUNT (AUTO) 148 K/uL (150-450); RED BLOOD CELL COUNT(AUTO) 2.96 MIL/uL (4.0-5.2); WHITE BLOOD COUNT (AUTO) 4.2 K/uL (4.3-11.0)
[2022-02-22] MEDS: HYDROCODONE/APAP 5/325MG TABLET PO PRN (15:19)
[2022-02-22 15:43] LABS: CALCIUM, SERUM 7.4 mg/dL (8.5-10.1); CREATININE 0.7 mg/dL (0.6-1.3); MAGNESIUM 2.2 mg/dL (1.8-2.4); POTASSIUM 3.6 mmol/L (3.5-5.1)
[2022-02-22 16:00] VITALS: BP 106/72
--- NOTE | 2022-02-22 16:07 | NUR ---
RN NOTE WAS ABLE TO TAKE 1600 VITAL SIGNS PATIENT REFUSED TEMP. EDUCATE PATIENT ON IMPORTANCE OF TEMP PATIENT REFUSED.
--- NOTE | 2022-02-22 16:08 | NUR ---
RN NOTE REVIEWED WITH PATIENT 1700 MEDICATIONS. PATIENT REFUSED MEDICATIONS STATED " I DO NOT WANT THEM"
--- NOTE | 2022-02-22 18:30 | NUR ---
RN CLOSING NOTES: PT IN BED, BOTH EYES CLOSED, A/OX2-3 AND VERBALLY RESPONSIVE. PT IS ON COOL AEROSOL WITH T-PIECE TRACH COLLAR AND PT TOLERATED WELL. O2 SAT 100%. IV ACCESS ON RT FEMORAL PICC LINE, RUNNING NS 125CC/HR. NO C/O PAIN OR DISCOMFORT AT THIS MOMENT. NO ACUTE DISTRESS. COLOSTOMY BAG IN PLACE ON LLQ 50mls/hr . HUNG CATHETER IN PLACE. RUNNING BY GRAVITY. NOTED YELLOWISH/CLEAR URINE.. ALL SAFETY MEASURES IN PLACE. SIDERAILS UP X3, BED IN LOWEST POSITION AND LOCKED. PLACE CALL LIGHT WITH IN REACH. WILL ENDORSE TO STREETCAR CONDUCTOR NURSE.
[2022-02-22 20:00] VITALS: BP 93/66
[2022-02-22] MEDS ORDERED: MENTHOL/CETYLPYRD (CEPACOL) 1 LOZ LOZENGE MM PRN (20:00)
--- NOTE | 2022-02-22 20:23 | NUR ---
assistant clinical director opening Note Pt in bed, awake, A&O x2-3, noted to be groaning and facial grimacing at the moment. Pt on T-piece cool aerosol at 5L with trach collar; O2sat 100%; no s/s of resp distress, no SOB noted, non-labored and equal breathing. Trach collar C/D/I/P. On external monitor, SR with HR 69. Pt femoral PICC line intact and patent with NS at 125 ml/hr; flushes easily with no resistance. Claros draining cloudy and jenna urine. Bed in lowest position, call light within reach, side rails up x3. Will continue to monitor throughout the night.
[2022-02-22] MEDS: CEFEPIME 2 GM in IV D5W 100 ML IV SCH (20:27)
--- NOTE | 2022-02-22 21:05 | NUR ---
RN Note Patient refused to take 2100 scheduled meds (Colacem fludrocortisone, and heparin).
[2022-02-23] VITALS: BP 81/56
--- NOTE | 2022-02-23 | NUR ---
RN Note Unable to get temp from axillary source; pt refuses to get oral temp to be taken
[2022-02-23 04:00] VITALS: BP 98/74
[2022-02-23] MEDS: diphenhydrAMINE HCL ELIX 25 MG/10 ML UDC PO PRN (04:34)
--- NOTE | 2022-02-23 04:36 | NUR ---
RN Note Pt requests for benadryl for spasms she's feeling on her arms
--- NOTE | 2022-02-23 04:41 | NUR ---
RN Note Pt says she won't take the benadryl without the morphine. Explained to pt her BP is too low and morphine will lower her BP even more. Pt refused to take the benadryl. Benadryl placed in casette for later use.
[2022-02-23] MEDS: FLUDROCORTISONE 0.1 MG TABLET PO SCH ×3 (05:00→21:13)
--- NOTE | 2022-02-23 05:00 | NUR ---
RN Note Pt refuses to take 0500 scheduled oral med fludrocortisone
[2022-02-23 05:57] LABS: EOSINOPHILS % (AUTO) 0.1 % (0.0-6.0); HEMATOCRIT 26 % (33-45); HEMOGLOBIN 7.9 g/dL (11.5-14.8); LYMPHOCYTES # (AUTO) 0.4 K/uL (0.8-4.8); MEAN CORPUSCULAR HGB CONC 31 g/dl (31.0-36.0); MEAN CORPUSCULAR VOLUME 91 fL (82-100); MONOCYTES # (AUTO) 0.2 K/uL (0.1-1.30); NEUTROPHILS # (AUTO) 2.3 K/uL (1.8-8.9); NEUTROPHILS % (AUTO) 79.9 % (43.0-81.0); PLATELET COUNT (AUTO) 130 K/uL (150-450); RED BLOOD CELL COUNT(AUTO) 2.84 MIL/uL (4.0-5.2); WHITE BLOOD COUNT (AUTO) 2.8 K/uL (4.3-11.0)
[2022-02-23] MEDS ORDERED: KETOROLAC TROMETHAMINE INJ 30 MG/ML VIAL IV PRN ×2 (06:00→07:00)
[2022-02-23] MEDS: HYDROCORTISONE SOD SUCCINATE 100 MG/2 ML VIAL IV SCH ×3 (06:00→21:13)
[2022-02-23 06:01] LABS: CALCIUM, SERUM 6.7 mg/dL (8.5-10.1); CREATININE 0.6 mg/dL (0.6-1.3); POTASSIUM 3.1 mmol/L (3.5-5.1)
[2022-02-23] MEDS: IV NS 0.9% 1,000 ML IV PRN ×2 (06:01→15:44)
--- NOTE | 2022-02-23 06:16 | NUR ---
RN Note Pt refuses to be cleaned, turned, repositioned.
--- NOTE | 2022-02-23 06:37 | NUR ---
manager of corporate Closing Note Pt in bed, A&O x2-3, awake the whole night; pt verbal and able to make needs known. Pt on T-piece cool aerosol with trach collar at 4L; with O2sat 100% throughout the night; no s/s of resp distress, no SOB noted, non-labored and equal breathing. Pt attached to external monitor, noted to have been ST during start of shift, now currently SR with HR 98 . Right femoral PICC line intact and patent with NS at 125 ml/hr. Ostomy pink and moist with no s/s of necrosis; ostomy bag emptied with output of 150 ml; pt refused to change whole ostomy bag. All due meds and fluids given. Bed in lowest position, call light within reach, side rails up x3. Will endorse to dayshift nurse to continue care.
--- NOTE | 2022-02-23 07:15 | NUR ---
public health informatician Opening Note Pt in bed, A&O x2-3. Patient verbal and able to make needs known. Pt on T-piece cool aerosol with trach collar at 4L; with O2sat 100%. No s/s of respiratory distress, no shortness of breath noted, non-labored and equal breathing. Pt attached to external monitor. Right femoral PICC line intact and patent with NS at 125 ml/hr. Bed in lowest position, call light within reach, side rails up x3. Will continue plan of care and anticipate needs.
[2022-02-23] MEDS: PANTOPRAZOLE 40 MG TABLET.DR PO SCH (07:30)
--- NOTE | 2022-02-23 07:58 | NUR ---
WOUND CARE: PT CONTINUES TO REFUSE SKIN ASSESSMENT AND PHOTOS. PER SENDING FACILITY, PT HAS MULTIPLE LOWER EXTREMITY WOUNDS, POSTERIOR HEAD STAGE 4 PRESSURE ULCER, LEFT HIP WOUND, STAGE 4 ULCERS TO UPPER BACK AND SACRUM, ALL PRESENT ON ADMISSION. MSG LEFT FOR DR ROLLE AND DR HERNANDEZ. RECOMMENDATIONS MADE FOR SKIN PROTECTION. FIRST STEP LOW AIRLOSS MATTRESS ON ORDER. DISCUSSED WITH NURSING STAFF. MD IN AGREEMENT WITH PLAN OF CARE.
[2022-02-23 08:00] VITALS: BP 92/68
[2022-02-23] MEDS: HYDROCODONE/APAP 5/325MG TABLET PO PRN ×3 (08:04→21:12)
[2022-02-23] MEDS: ARIPIPRAZOLE 2 MG TABLET PO SCH (08:11)
[2022-02-23] MEDS: DOCUSATE SODIUM 250 MG CAPSULE PO SCH ×2 (08:12→21:13)
[2022-02-23] MEDS: MULTIVITAMINS,THERAGRAN 1 UDTAB TABLET PO SCH (08:13)
[2022-02-23] MEDS: ASCORBIC ACID 500 MG TABLET PO SCH (08:13)
[2022-02-23] MEDS: FOLIC ACID 1 MG TABLET PO SCH (08:13)
[2022-02-23] MEDS: GABAPENTIN 100 MG CAPSULE PO SCH ×3 (08:13→17:01)
[2022-02-23] MEDS: PROSOURCE / PROSTAT (PYXIS) 30 ML UDC PO SCH ×3 (08:13→17:00)
[2022-02-23] MEDS: ZINC SULFATE 220 MG CAPSULE PO SCH (08:13)
[2022-02-23] MEDS: HEPARIN SODIUM, PORCINE 5000 UNITS/1 ML VIAL SQ SCH ×2 (08:14→21:13)
--- NOTE | 2022-02-23 08:14 | NUR ---
NURSING NOTE PATIENT IS REFUSING ALL PO MEDICATIONS. WHEN ASKED IF SHE WOULD LIKE TO TAKE HER MEDICATIONS, RESPONDED "NO NO NO, ONLY PAIN MEDS". PROVIDED EDUCATION ON MEDICATIONS AND THE POTENTIAL CONSEQUENCES OF REFUSING THERAPY. PATIENT CONTINUED TO REFUSE. PATIENT GAVE APPROVAL FOR IV MEDICATIONS.
[2022-02-23] MEDS: CHLORHEXIDINE GLUCONATE 15 ML UDC MM SCH ×2 (08:39→17:00)
--- NOTE | 2022-02-23 08:39 | NUR ---
NURSING NOTE PATIENT IS REFUSING ORAL CARE.
[2022-02-23] MEDS: POTASSIUM CL. PREMIX PERIPHER. 50 ML IV SCH ×6 (08:44→14:21)
[2022-02-23] MEDS: HYDROGEL DRESSING 90 GM TUBE TP SCH (09:00)
--- NOTE | 2022-02-23 09:06 | NUR ---
RN NOTE PATIENT IS REFUSING DRESSING CHANGES. WILL ATTEMPT TO PROVIDE TREATMENT LATER.
[2022-02-23 12:00] VITALS: BP 101/67
[2022-02-23] MEDS ORDERED: PHENOL/SODIUM PHENOLATE 1 BOTTLE MM PRN (12:00)
--- NOTE | 2022-02-23 12:58 | NUR ---
RN NOTES PATIENT IS REFUSING FLORINEF AND PROSTAT, BOTH SCHEDULED FOR 1300. PROVIDED EDUCATION ON MEDICATIONS AND THE CONSEQUENCES OF REFUSING THERAPY. PATIENT STILL CONTINUES TO REFUSE. WILL CONTINUE PLAN OF CARE AND ANTICIPATE NEEDS. Addendum: 02/23/22 at 1311 by NOAH CONTRERAS RN FLORINEF HAS BEEN DISPOSED IN THE MEDICATION WASTE BIN. PHARMACY NOTIFIED.
[2022-02-23 16:00] VITALS: BP 95/66
--- NOTE | 2022-02-23 17:08 | NUR ---
RN NOTES PATIENT IS REFUSING 1700 MEDICATION PROSTAT, AND REFUSING PERIDEX MOUTHWASH. PROVIDED EDUCATION ON THE IMPORTANCE OF ADHERING TO MEDICATION SCHEDULE, AND IMPORTANCE OF MOUTHCARE. PATIENT STILL REFUSED AND STATED "JUST THE GABAPENTIN". WILL CONTINUE PLAN OF CARE AND ANTICIPATE NEEDS.
--- NOTE | 2022-02-23 17:15 | NUR ---
RN NOTES PATIENT IS REFUSING POSITION CHANGES, BED BATH AND WOUND CARE.
--- NOTE | 2022-02-23 17:34 | NUR ---
RN NOTES PATIENT IS REFUSING DINNER TRAY
--- NOTE | 2022-02-23 18:58 | NUR ---
medical social worker Closing Note Pt in bed, A&O x2-3. Patient verbal and able to make needs known. Pt on T-piece cool aerosol with trach collar at 4L; with O2sat 100%. No s/s of respiratory distress, no shortness of breath noted, non-labored and equal breathing. Pt attached to external monitor. Right femoral PICC line intact and patent with NS at 125 ml/hr. Bed in lowest position, call light within reach, side rails up x3. Will endorse to oncoming evening or night nurse supervisor nurse for JANES.
--- NOTE | 2022-02-23 19:05 | NUR ---
RN NOTES RECEIVED PT FOR CONTINUITY OF CARE. PATIENT A/OX2-3 IN NO S/SX OF ACUTE DISTRESS AT THIS TIME; CURRENTLY ON 5L OF 02 VIA T-PIECE; WITH 02 SAT >95% AT THIS TIME. IV ACCESS ON R FEMORAL PICC LINE, PATENT AND INTACT. WITH IV FLUID RUNNING ORDERED. WILL ENSURE SAFETY MEASURES WITHIN THE SHIFT. PATIENT BED ALARM IS ON. HEAD OF BED ELEVATED. BED IS LOCKED, IN LOWEST POSITION AND SIDE RAILS UP. CALL LIGHT WITHIN REACH OF THE PATIENT. APPLICABLE ISOLATION PRECAUTIONS IN PLACE. WILL CONTINUE TO MONITOR AND REASSESS FOR ANY CHANGES AND WILL CARRY OUT ANY ONGOING AND ACTIVE MD ORDER.
[2022-02-23 20:00] VITALS: BP 111/61
[2022-02-23] MEDS: CEFEPIME 2 GM in IV D5W 100 ML IV SCH (21:12)
--- NOTE | 2022-02-23 21:50 | NUR ---
RN NOTES PICC LINE NURSE (RAHUL) FACILITATED INSERTION OF MIDLINE @ L UA G#18, SECURED , INTACT AND FLUSHING WELL. COLLEGE SCOUTING COORDINATOR WELL AWARE. SENT PICC LINE TIP FOR CULTURE.
[2022-02-24] VITALS: BP 92/56
[2022-02-24] MEDS: IV NS 0.9% 1,000 ML IV PRN ×4 (00:19→17:15)
[2022-02-24 04:00] VITALS: BP 96/62
--- NOTE | 2022-02-24 04:00 | NUR ---
RN NOTES PATIENT REMAINED TO BE IN NO SIGNS OF ACUTE RESPIRATORY DISTRESS , VITAL SIGNS STABLE AT THIS TIME. PT REFUSED WOUND CARE AND TOTAL AM PATIENT CARE, ONLY ALLOWED RN TO DRAIN COLOSTOMY BAG. WILL CONTINUE TO MONITOR AND REASSESS FOR ANY CHANGES THROUGHOUT THE SHIFT.
[2022-02-24] MEDS: FLUDROCORTISONE 0.1 MG TABLET PO SCH ×4 (05:14→21:00)
[2022-02-24] MEDS: HYDROCORTISONE SOD SUCCINATE 100 MG/2 ML VIAL IV SCH ×3 (05:14→20:30)
[2022-02-24] MEDS: HYDROCODONE/APAP 5/325MG TABLET PO PRN ×3 (05:28→18:03)
[2022-02-24 05:53] LABS: CALCIUM, SERUM 6.7 mg/dL (8.5-10.1); CREATININE 0.6 mg/dL (0.6-1.3); POTASSIUM 4.1 mmol/L (3.5-5.1)
--- NOTE | 2022-02-24 06:30 | NUR ---
RN CLOSING NOTE: PATIENT REMAINS IN ROOM IN NO SIGNS OF RESPIRATORY DISTRESS, PATIENT STILL ON 5L OF 02 VIA T-PIECE ;TOLERATING WELL SATURATING @ >95% SP02. SAFETY MEASURES IMPLEMENTED, BED IN LOWEST POSITION, LOCKED, SIDE RAILS UP, CALL LIGHT WITHIN REACH. ALL NEEDS AND ORDERS ADDRESSED DURING THE SHIFT. IV ACCESS MAINTAINED INTACT, SECURED AND FLUSHING WELL. ALL DUE MEDS GIVEN ORDERED & SCHEDULED ; PATIENT TOLERATED WELL. PATIENT KEPT CLEAN AND COMFORTABLE WITHIN THE SHIFT. PATIENT ENDORSED TO INCOMING SHIFT RN WITH STABLE VITAL SIGN AND FOR CONTINUITY OF CARE.
[2022-02-24 07:22] LABS: BASOPHILS % (AUTO) 0.2 % (0.0-2.0); EOSINOPHILS % (AUTO) 0.7 % (0.0-6.0); HEMATOCRIT 31 % (33-45); HEMOGLOBIN 9.4 g/dL (11.5-14.8); LYMPHOCYTES # (AUTO) 0.6 K/uL (0.8-4.8); LYMPHOCYTES % (AUTO) 30.6 % (20.0-44.0); MEAN CORPUSCULAR HGB CONC 31 g/dl (31.0-36.0); MEAN CORPUSCULAR VOLUME 92 fL (82-100); MONOCYTES # (AUTO) 0.1 K/uL (0.1-1.30); MONOCYTES % (AUTO) 4.3 % (2.0-12.0); NEUTROPHILS # (AUTO) 1.2 K/uL (1.8-8.9); NEUTROPHILS % (AUTO) 64.2 % (43.0-81.0); PLATELET COUNT (AUTO) 116 K/uL (150-450); RED BLOOD CELL COUNT(AUTO) 3.37 MIL/uL (4.0-5.2)
[2022-02-24 07:42] LABS: WHITE BLOOD COUNT (AUTO) 1.9 K/uL (4.3-11.0)
--- NOTE | 2022-02-24 07:51 | NUR ---
RN OPENING NOTE: PATIENT REMAINS IN ROOM IN NO SIGNS OF RESPIRATORY DISTRESS, PATIENT ON 5L OF 02 VIA T-PIECE ;TOLERATING WELL SATURATING @ >95% SP02. SAFETY MEASURES IMPLEMENTED, BED IN LOWEST POSITION, LOCKED, SIDE RAILS UP, CALL LIGHT WITHIN REACH. IV ACCESS MAINTAINED INTACT, SECURED AND FLUSHING WELL. WILL CONTINUE PLAN OF CARE AND ANTICIPATE NEEDS.
[2022-02-24] MEDS: GABAPENTIN 100 MG CAPSULE PO SCH ×2 (08:05→16:02)
[2022-02-24] MEDS: PANTOPRAZOLE 40 MG TABLET.DR PO SCH (08:30)
--- NOTE | 2022-02-24 08:30 | NUR ---
NURSING NOTE PATIENT IS REFUSING ALL MEDICATIONS AND TREATMENTS FOR 0730 AND 0900 WITH THE EXCEPTION OF GABAPENTIN. WHEN ASKED IF SHE WOULD LIKE TO TAKE HER MEDICATIONS, RESPONDED "NO NO NO". PROVIDED EDUCATION ON MEDICATIONS AND THE POTENTIAL CONSEQUENCES OF REFUSING THERAPY. PATIENT CONTINUED TO REFUSE. WILL CONTINUE PLAN OF CARE AND ANTICIPATE NEEDS.
[2022-02-24] MEDS: ARIPIPRAZOLE 2 MG TABLET PO SCH (08:44)
[2022-02-24] MEDS: FOLIC ACID 1 MG TABLET PO SCH (08:44)
[2022-02-24] MEDS: ASCORBIC ACID 500 MG TABLET PO SCH (08:44)
[2022-02-24] MEDS: DOCUSATE SODIUM 250 MG CAPSULE PO SCH ×3 (08:44→21:00)
[2022-02-24] MEDS: CHLORHEXIDINE GLUCONATE 15 ML UDC MM SCH ×2 (08:44→16:17)
[2022-02-24] MEDS: MULTIVITAMINS,THERAGRAN 1 UDTAB TABLET PO SCH (08:44)
[2022-02-24] MEDS: PROSOURCE / PROSTAT (PYXIS) 30 ML UDC PO SCH ×3 (08:44→16:17)
[2022-02-24] MEDS: HYDROGEL DRESSING 90 GM TUBE TP SCH (08:45)
[2022-02-24] MEDS: ZINC SULFATE 220 MG CAPSULE PO SCH (08:45)
[2022-02-24] MEDS: HEPARIN SODIUM, PORCINE 5000 UNITS/1 ML VIAL SQ SCH ×2 (08:45→20:31)
[2022-02-24 08:54] VITALS: BP 96/62
--- NOTE | 2022-02-24 12:01 | NUR ---
RN NOTE PATIENT IS REFUSING 1300 DOSE OF PROSTAT. PROVIDED EDUCATION ON THE IMPORTANCE OF THE MEDICATION, AND THE PATIENT CONTINUED TO REFUSE. WILL CONTINUE PLAN OF CARE AND ANTICIPATE NEEDS.
[2022-02-24 12:13] VITALS: BP 96/55
[2022-02-24 16:00] VITALS: BP 102/69
--- NOTE | 2022-02-24 16:17 | NUR ---
RN NOTES PATIENT IS REFUSING 1700 MEDICATION PROSTAT, AND REFUSING PERIDEX MOUTHWASH. PROVIDED EDUCATION ON THE IMPORTANCE OF ADHERING TO MEDICATION SCHEDULE, AND IMPORTANCE OF MOUTH CARE. PATIENT STILL REFUSED AND STATED. WILL CONTINUE PLAN OF CARE AND ANTICIPATE NEEDS.
[2022-02-24 16:35] LABS: LYMPHOCYTES % (MANUAL) 26 % (16-48); MONOCYTES % (MANUAL) 6 % (0-11.0); NEUTROPHILS % (MANUAL) 68 (42-76)
--- NOTE | 2022-02-24 18:32 | NUR ---
RN CLOSING NOTE: PATIENT REMAINS IN ROOM IN NO SIGNS OF RESPIRATORY DISTRESS, PATIENT ON 5L OF 02 VIA T-PIECE ;TOLERATING WELL SATURATING @ >95% SP02. SAFETY MEASURES IMPLEMENTED, BED IN LOWEST POSITION, LOCKED, SIDE RAILS UP, CALL LIGHT WITHIN REACH. ALL NEEDS AND ORDERS ADDRESSED DURING THE SHIFT. IV ACCESS MAINTAINED INTACT, SECURED AND FLUSHING WELL. PATIENT KEPT CLEAN AND COMFORTABLE WITHIN THE SHIFT. VITAL SIGNS STABLE. WILL ENDORSE TO ONCOMING CORRECTION OFFICER SUPERVISOR NURSE FOR JANES.
--- NOTE | 2022-02-24 19:30 | NUR ---
BALER OPERATOR OPENING NOTES RECEIVED PT IN BED, A/O X 2. CURRENTLY ON 5L OF 02 VIA T-PIECE; TOLERATING WELL, WITH 02 SAT OF 97%, NO S/SX OF ACUTE DISTRESS NOTED AT THIS TIME. ON TELE MONITOR SHOWING SR-SB WITH HR IN THE 50s. WILL MONITOR CLOSELY. IV ACCESS ON DORETHA MIDLINE, #18g NOTED, PATENT AND INTACT. WITH IV FLUID RUNNING ORDERED. COLOSTOMY NOTED, INTACT AND CLEAN. HUNG CATHETER IN PLACE, DRAINING YELLOW COLORED URINE BY GRAVITY. ALL SAFETY MEASURES IN PLACE: BED ALARM IS ON. HEAD OF BED ELEVATED. BED IS LOCKED, IN LOWEST POSITION, SIDE RAILS UP X 2. CALL LIGHT WITHIN REACH. WILL CONTINUE TO MONITOR AND REASSESS FOR ANY CHANGES.
[2022-02-24 20:00] VITALS: BP_SYST 79; BP_SYST 90; BP_DIAS 45; BP_DIAS 55
[2022-02-24] MEDS: CEFEPIME 2 GM in IV D5W 100 ML IV SCH (20:30)
--- NOTE | 2022-02-24 21:00 | NUR ---
RN NOTE PATIENT REFUSED 2100 MEDICATION FLORINEF AND COLACE PO MEDS. PROVIDED EDUCATION ON THE IMPORTANCE OF ADHERING TO MEDICATION SCHEDULE. PATIENT STILL REFUSED. WILL CONTINUE PLAN OF CARE AND ANTICIPATE NEEDS.
--- NOTE | 2022-02-24 21:30 | NUR ---
RN NOTE Patient is awake and verbally responsive. No signs of distress noted at this time. Refused temp to be taken at 1999. Trach intact and patent on cool aerosol at 5lpm. Tolerating well. O2 sat is 97% at this time. Patient's skin cool to touch but strongly refusing rectal temp check. Provided pt with 2 more warm blankets. Needs attended. Pt being monitored closely.
--- NOTE | 2022-02-24 22:00 | NUR ---
2200 Dr. Mcduffie was notified of critical blood culture result Gram Positive Rods with order for Vancomycin per pharmacy dosing. Order noted.
[2022-02-24] MEDS: VANCOMYCIN 1 GM VIAL ONE ×2 (22:36→22:56)
[2022-02-24] MEDS: VANCOMYCIN 1.25 GM in IV D5W 250 ML IV SCH (22:38)
[2022-02-25] VITALS (71 sets, daily range): BP systolic 66–153; BP diastolic 28–102
--- NOTE | 2022-02-25 00:13 | NUR ---
0013 Dr. Mcduffie was notified of patient's low bp 78/38, 85/42, and 72/35 with order to give bolus of NS 1 liter x 1 now, and Midodrine 10 mg x one now and to notify him if BP remained below 90mmHg. Orders noted and carried out. Pharmacy notified care of [facility]. Patient awake and verbally responsive. No signs of distress noted. Trach intact and patent on cool aerosol at 5lpm. O2 sat 96%. Patient's skin cool to touch but strongly refusing rectal temp check. Placed patient on warming blanket. Needs attended. Pt being monitored closely.
[2022-02-25] MEDS ORDERED: MIDODRINE HCL (5MG) 5 MG TABLET PO STA (00:21)
[2022-02-25] MEDS: IV NS 0.9% 1,000 ML IV PRN (00:27)
[2022-02-25] MEDS ORDERED: IV NS 0.9% 1,000 ML IV ONE (00:30)
[2022-02-25] MEDS ORDERED: MIDODRINE HCL (5MG) 5 MG TABLET ONE (00:40)
--- NOTE | 2022-02-25 00:59 | NUR ---
0059 Vancomycin dose verified with pharmacist Bradley, per him give Vancomycin 1.25gm every 8 hours. Order noted and carried out.
--- NOTE | 2022-02-25 01:20 | NUR ---
0120 Dr. Mcduffie updated on patient's bp 79/35, 63/34, 73/37 with order to start patient on dopamine drip at 2mcg no titration to keep MAP > 65 and to transfer patient to ICU if low BP persistent with dopamine drip. Patient upgraded to ALCON status per Dr. Mcduffie. Patient remains awake and verbally responsive. No signs of distress noted. Refusing to check temperature, explained to patient the importance of checking her temperature. Axillary temp noted at 93.2 when checked. Patient remains on warming blanket.
[2022-02-25] MEDS ORDERED: DOPamine 400 MG/D5W 250 ML RTU BAG IV ONE (01:30)
[2022-02-25] MEDS: VANCOMYCIN 1.25 GM in IV D5W 250 ML IV SCH (01:51)
[2022-02-25] MEDS ORDERED: DOPamine 400MG/D5W 250ML RTU 250 ML ONE (02:05)
--- NOTE | 2022-02-25 02:25 | NUR ---
RN NOTES RECEIVED PT FOR CONTINUITY OF CARE. PATIENT A/OX2-3 IN NO S/SX OF ACUTE DISTRESS AT THIS TIME; CURRENTLY ON 5L OF 02 VIA T-PIECE. IV ACCESS L UA MIDLINE#18, PATENT AND INTACT. WITH IV FLUID RUNNING ORDERED. ALSO RECEIVED WITH RUNNING DOPAMINE DRIP @ 2MCG/KG/MIN, INFUSING PER PROTOCOL.HUNG CATH IN PLACE, MODERATE URINE OUTPUT NOTED. MALACIH HUGGER INPLACE MONITORED PER PROTOCOL. WILL ENSURE SAFETY MEASURES WITHIN THE SHIFT. PATIENT BED ALARM IS ON. HEAD OF BED ELEVATED. BED IS LOCKED, IN LOWEST POSITION AND SIDE RAILS UP. CALL LIGHT WITHIN REACH OF THE PATIENT. APPLICABLE ISOLATION PRECAUTIONS IN PLACE. WILL CONTINUE TO MONITOR AND REASSESS FOR ANY CHANGES AND WILL CARRY OUT ANY ONGOING AND ACTIVE MD ORDER.
--- NOTE | 2022-02-25 02:30 | NUR ---
RN NOTES REPORT GIVEN TO LESLEY COHEN FOR JANES. ALL PERTINENT PT & MEDICAL INFO GIVEN.
--- NOTE | 2022-02-25 04:00 | NUR ---
RN NOTES NO SIGNIFICANT CHANGE TO PT'S CONDITION PT NEURO STATUS STILL A/OX2-3, SBP NOW >90 MPA >60, STILL ON DOPAMINE DRIP @2MCG/KG/MIN. STILL ON MALACHI HUGGER TO FACILITATE TEMP MGT. WILL CONTINUE TO MONITOR AND ASSESS THROUGHOUT THE SHIFT.
[2022-02-25] MEDS: FLUDROCORTISONE 0.1 MG TABLET PO SCH ×3 (04:50→21:00)
[2022-02-25] MEDS: HYDROCORTISONE SOD SUCCINATE 100 MG/2 ML VIAL IV SCH ×3 (04:51→21:17)
--- NOTE | 2022-02-25 05:16 | NUR ---
0516 DR. PEPPER UPDATED OF PATIENT'S CONDITION, MADE HIM AWARE THAT PATIENT'S BP IS TRENDING DOWN AGAIN 92/45, 82/31, 65/39 ON DOPAMINE AT 2MCG/KG/MIN AND TEMP STILL LOW DESPITE MALACHI HUGGER WARMING BLANKET WITH ORDER TO TRANSFER TO ICU AND TO START PATIENT ON LEVOPHED DRIP WITH SAME MAP PARAMETER. ORDER NOTED AND CARRIED OUT. PATIENT STILL ALERT AND VERBALLY RESPONSIVE. NO DISTRESS NOTED. TOLERATES 5L ON COOL AEROSOL. CONT TO REFUSE CARE BP CHECK AND TEMP CHECK. CONT TO EXPLAIN AND REITERATE TO PATIENT THE IMPORTANCE OF OBTAINING VITAL SIGNS BUT SHE CONT. TO REFUSE. HANDLED GENTLY. NEEDS ATTENDED. PATIENT BEING CLOSELY MONITORED.
[2022-02-25] MEDS ORDERED: NOREPINEPHRINE 8MG/250ML RTU 250 ML IV ONE (05:37)
--- NOTE | 2022-02-25 05:45 | NUR ---
RN NOTES TRANSFERRED PT TO ICU RM 258 VIA ACLS PROTOCOL. PRIMARY RN WITH PT AND RT. ALL BELONGINGS, MEDICATIONS AND CHART TRANSFERRED WITH PT, ASSEMBLER CRIMPER MADE AND WELL AWARE.
--- NOTE | 2022-02-25 05:50 | NUR ---
RN NOTES STARTED LEVOPHED ORDERED. WILL CONTINUE TO MONITOR AND ASSESS THROUGHOUT THE SHIFT.
[2022-02-25] MEDS: NOREPINEPHRINE 8 MG in IV NS 0.9% 242 ML IV PRN ×2 (05:57→15:23)
--- NOTE | 2022-02-25 07:00 | NUR ---
GAMING CAGE CASHIER CLOSING NOTE: PATIENT REMAINS IN ROOM IN NO SIGNS OF RESPIRATORY DISTRESS, PATIENT STILL ON 5L OF 02 VIA T-PIECE; SETTINGS PRESCRIBED;TOLERATING WELL SATURATING @ 94% AT THIS TIME. SAFETY MEASURES IMPLEMENTED, BED IN LOWEST POSITION, LOCKED, SIDE RAILS UP, CALL LIGHT WITHIN REACH. ALL NEEDS AND ORDERS ADDRESSED DURING THE SHIFT. IV ACCESS MAINTAINED INTACT, SECURED AND FLUSHING WELL AND IV FLUID RUNNING ORDERED. ALL DUE MEDS GIVEN ORDERED & SCHEDULED ; PATIENT TOLERATED WELL. STILL WITH ONGOING LEVO DRIP @0.2MCG/KG/MIN RUNNING AND MONITORED PER PROTOCOL. STILL ON MALACHI HUGGER FOR TEMP MGT. PATIENT KEPT CLEAN AND COMFORTABLE WITHIN THE SHIFT. PATIENT ENDORSED TO INCOMING SHIFT RN WITH STABLE VITAL SIGN AND FOR CONTINUITY OF CARE.
[2022-02-25] MEDS: PANTOPRAZOLE 40 MG TABLET.DR PO SCH (07:30)
[2022-02-25 08:14] LABS: BASOPHILS % (AUTO) 0.2 % (0.0-2.0); EOSINOPHILS % (AUTO) 2.8 % (0.0-6.0); HEMATOCRIT 37 % (33-45); HEMOGLOBIN 11.1 g/dL (11.5-14.8); LYMPHOCYTES # (AUTO) 0.4 K/uL (0.8-4.8); LYMPHOCYTES % (AUTO) 9.2 % (20.0-44.0); MEAN CORPUSCULAR HGB CONC 30 g/dl (31.0-36.0); MEAN CORPUSCULAR VOLUME 90 fL (82-100); MONOCYTES # (AUTO) 0.3 K/uL (0.1-1.30); NEUTROPHILS # (AUTO) 3.7 K/uL (1.8-8.9); NEUTROPHILS % (AUTO) 81.8 % (43.0-81.0); PLATELET COUNT (AUTO) 180 K/uL (150-450); RED BLOOD CELL COUNT(AUTO) 4.05 MIL/uL (4.0-5.2); WHITE BLOOD COUNT (AUTO) 4.6 K/uL (4.3-11.0)
[2022-02-25 08:26] LABS: CALCIUM, SERUM 6.4 mg/dL (8.5-10.1); CREATININE 0.8 mg/dL (0.6-1.3); POTASSIUM 3.6 mmol/L (3.5-5.1)
[2022-02-25] MEDS: ARIPIPRAZOLE 2 MG TABLET PO SCH (08:26)
[2022-02-25] MEDS: DOCUSATE SODIUM 250 MG CAPSULE PO SCH ×2 (08:27→21:00)
[2022-02-25] MEDS: FOLIC ACID 1 MG TABLET PO SCH (08:27)
[2022-02-25] MEDS: ZINC SULFATE 220 MG CAPSULE PO SCH (08:28)
[2022-02-25] MEDS: ASCORBIC ACID 500 MG TABLET PO SCH (08:28)
[2022-02-25] MEDS: PROSOURCE / PROSTAT (PYXIS) 30 ML UDC PO SCH ×3 (08:28→16:54)
[2022-02-25] MEDS: GABAPENTIN 100 MG CAPSULE PO SCH ×2 (08:28→16:54)
[2022-02-25] MEDS: MULTIVITAMINS,THERAGRAN 1 UDTAB TABLET PO SCH (08:28)
[2022-02-25] MEDS: HYDROGEL DRESSING 90 GM TUBE TP SCH (08:37)
[2022-02-25] MEDS: CHLORHEXIDINE GLUCONATE 15 ML UDC MM SCH ×2 (08:38→18:31)
[2022-02-25] MEDS: VANCOMYCIN 1 GM in IV D5W 250ml IV SCH ×3 (08:38→23:44)
[2022-02-25] MEDS: HEPARIN SODIUM, PORCINE 5000 UNITS/1 ML VIAL SQ SCH ×2 (09:05→21:23)
[2022-02-25] MEDS ORDERED: CEFEPIME 2 GM in IV D5W 100 ML IV SCH (11:00)
[2022-02-25] MEDS ORDERED: ERGOCALCIFEROL (VITAMIN D 2) 50,000 UNIT CAPSULE PO SCH (11:00)
[2022-02-25] MEDS ORDERED: IV LR 1000 ML 1,000 ML IV PRN (11:30)
[2022-02-25] MEDS ORDERED: IV LR 1,000 ML IV SCH (11:30)
[2022-02-25] MEDS: CEFEPIME 2 GM in IV D5W 100 ML IV SCH ×2 (13:03→22:04)
[2022-02-25 18:20] LABS: ABG OXYGEN SATURATION 89.8 % (92.0-98.5); ABG PH 7.145 (7.350-7.450); AaDO2 170.9 mmHg; COHb 0.2 % (0.5-1.5); MetHb 0.4 % (0.0-1.5); O2Hb 89.3 % (94.0-97.0); SITE, ABG Left Radial; VENT MODE, BG CA 10L 40%
[2022-02-25] MEDS ORDERED: IV LR 1000 ML 1,000 ML IV ONE (18:30)
[2022-02-25] MEDS ORDERED: VASOPRESSIN INJ 40 UNIT in IV NS 0.9% 38 ML IV PRN (19:00)
--- NOTE | 2022-02-25 19:04 | NUR ---
RT NOTE PLACED PT ON VENTILATOR PER MD ORDERS D/T LOW SPO2 LOW 80S AND CRITICAL ABG PH 7.14 CO2 42 PO2 66 AND HCO 14.1. PT ON CURRENT VENTILATOR SETTING AC VC 30 425 60% + 5. INCREASED FIO2 FROM 40 TO 60 D/T SPO2 90%-91%. VENT PLUGGED INTO RED OUTLET, ALARMS ON AND AUDIBLE. NO DISTRESS NOTED. AMBUBAG AND B/U PORTEX 8 TRACH AT BEDSIDE. DAY SHIFT RN NOTIFIED OF CHANGES IN FIO2 AND VT.
--- NOTE | 2022-02-25 19:25 | NUR ---
ELECTRICIAN SUBSTATION CLOSING NOTES Patient noted with 02 sat desaturation of 79-85% on cool aerosol. Stat abg done and results relayed to MD. Charge nurse received orders. Bolus started and pharmacy aware. Patient placed on mechanical vent setting gustavo well. HOB kept elevated. Noted with 300 cc urine output. Endorsed to next shift to start bicarb due to pharmacy preparing. Patient vitals stable. Levo running at 0.2 mcg, gustavo well.Turned and repositioned q2h and prn. Bed is in lowest and locked position.
[2022-02-25] MEDS: Sodium Bicarbonate 150 MEQ in IV D5W 1,000 ML IV SCH (19:49)
--- NOTE | 2022-02-25 20:00 | NUR ---
ICU NOTES Received patient drowsy non verbal with trach to mechanical vent on AC mode.Patient desat to 88%-89% RT increased FIO2 to 60%.No acute distress noted.SR on levophed gtt for BP support. Patient ABG's resulted day shift ph=7.1,HCO3=14.1MD notified.Bicarb gtt started per order.Colostomy intact and active small brownish stool.Turned ans repositioned.
[2022-02-25 20:08] LABS: BILIRUBIN,URINE NEGATIVE (NEGATIVE); COLOR,URINE YELLOW (YELLOW); LEUKOCYTE ESTERASE ,URINE LARGE (NEGATIVE); NITRITE, URINE POSITIVE (NEGATIVE); PH,URINE 5.5 (5.0-8.0); PROTEIN,URINE 30 mg/dl (NEGATIVE); UGLUCOSE NEGATIVE (NEGATIVE); UROBILINOGEN,URINE 0.2 EU/dL (0.2)
[2022-02-25] MEDS: BLOOD SUGAR DIAGNOSTIC 1 EACH STRIP IN SCH ×2 (20:16→23:41)
[2022-02-25 20:23] LABS: BACTERIA,URINE 4+ /HPF (None Seen); RBC,URINE 51-80 /HPF (0-2); SQUAMOUS EPITHELIAL CELL,UR 0-2 /HPF (None Seen); WBC,URINE TOO NUMEROUS TO COUN /HPF (0-3); YEAST,URINE Few /HPF (None Seen)
--- NOTE | 2022-02-25 21:30 | NUR ---
ICU NOTES 2114 PATIENT PICC LINE inserted by PICC LINE NURSE.Portable CXR done to check picc line placement.
[2022-02-25 23:19] LABS: ABG BASE EXCESS -9.7 mmol/L; ABG OXYGEN SATURATION 96.3 % (92.0-98.5); ABG PCO2 21.1 mmHg (35.0-45.0); ABG PH 7.416 (7.350-7.450); ABG PO2 78.1 mmHg (75.0-100.0); AaDO2 326.5 mmHg; COHb 0.3 % (0.5-1.5); MetHb 0.3 % (0.0-1.5); O2Hb 95.7 % (94.0-97.0); SITE, ABG Right Radial; VENT MODE, BG ACVC 30 425 60% +5
--- NOTE | 2022-02-25 23:22 | NUR ---
RT NOTE ABDonato DRAWN, PROCESSED AND DATA GIVEN TO LESLEY LE. AWAITING MD ORDERS.
[2022-02-26] VITALS (80 sets, daily range): BP systolic 85–191; BP diastolic 44–179
[2022-02-26] MEDS ORDERED: SODIUM BICARBONATE SYR 50 MEQ/50 ML DISP.SYRIN IV ONE
--- NOTE | 2022-02-26 | NUR ---
ICU NOTE Patient blood sugar monitored Q 4hrs.
--- NOTE | 2022-02-26 00:20 | NUR ---
RT NO CHANGES WHERE MADE AT THIS MOMENT PER MD ORDERS. NO DISTRESS NOTED.
--- NOTE | 2022-02-26 00:30 | NUR ---
ICU NOTES ABG's done pH=7.4,pCO2=21.1,pO2=78.1,HCO3=13.3 called to SANJAY Mcduffie with order to give 1 amp Sodium Bicarb ivp.Administered.
[2022-02-26] MEDS: BLOOD SUGAR DIAGNOSTIC 1 EACH STRIP IN SCH ×6 (03:58→23:51)
[2022-02-26] MEDS: IV NS 0.9% 250 ML IV PRN (03:59)
[2022-02-26 04:48] LABS: BASOPHILS % (AUTO) 0.1 % (0.0-2.0); EOSINOPHILS % (AUTO) 0.1 % (0.0-6.0); HEMATOCRIT 24 % (33-45); HEMOGLOBIN 7.8 g/dL (11.5-14.8); LYMPHOCYTES # (AUTO) 0.9 K/uL (0.8-4.8); LYMPHOCYTES % (AUTO) 13.7 % (20.0-44.0); MEAN CORPUSCULAR HGB CONC 32 g/dl (31.0-36.0); MEAN CORPUSCULAR VOLUME 87 fL (82-100); MONOCYTES # (AUTO) 0.4 K/uL (0.1-1.30); MONOCYTES % (AUTO) 6.1 % (2.0-12.0); NEUTROPHILS # (AUTO) 5.2 K/uL (1.8-8.9); RED BLOOD CELL COUNT(AUTO) 2.81 MIL/uL (4.0-5.2); WHITE BLOOD COUNT (AUTO) 6.4 K/uL (4.3-11.0)
[2022-02-26] MEDS: CEFEPIME 2 GM in IV D5W 100 ML IV SCH ×2 (04:58→12:22)
[2022-02-26] MEDS: HYDROCORTISONE SOD SUCCINATE 100 MG/2 ML VIAL IV SCH ×3 (04:58→21:29)
[2022-02-26] MEDS: FLUDROCORTISONE 0.1 MG TABLET PO SCH ×3 (05:00→21:29)
[2022-02-26 05:04] LABS: CALCIUM, SERUM 6.3 mg/dL (8.5-10.1); CREATININE 0.8 mg/dL (0.6-1.3)
[2022-02-26 05:17] LABS: PLATELET COUNT (AUTO) 49 K/uL (150-450); POTASSIUM 2.8 mmol/L (3.5-5.1)
--- NOTE | 2022-02-26 07:00 | NUR ---
END NOTE Patient resting in no acute distress.VSS.SR/SB 40's.0030 Levophed gtt titrated off but restarted at 0415 for low BP and HR up to 50's.AM care done.Wound care done.Turned and repositioned off loading pressure points.Will endorse to day shift for JANES.
[2022-02-26] MEDS: Sodium Bicarbonate 150 MEQ in IV D5W 1,000 ML IV SCH (07:21)
[2022-02-26] MEDS: PANTOPRAZOLE 40 MG TABLET.DR PO SCH (07:30)
[2022-02-26] MEDS: VANCOMYCIN 1 GM in IV D5W 250ml IV SCH (08:00)
--- NOTE | 2022-02-26 08:00 | NUR ---
RN NOTES RECEIVED PATIENT TRACHEA/VENT, CONFUSED, MUMBLING,KEEP BLINKING EYES. NO ACUTE RESPIRATORY DISTRESS, SUCTION MOUTH CARE DONE, HELD LEVOPHED DRIP BP 124/67, P-58. PATIENT TOTAL CARE NPO AT THIS TIME. DUE MED NOT ADMINISTERED. SEEN HOSPITALIST Dr FRANCOIS AND GET TO ORDER NGT INSERTION, AND NEUROLOGIST CONSULT. HUNG DRAINING LIGHT YELLOW OUTPUT. PATIENT HAS GENERALIZED EDEMA, AND MULTIPLE WOUNDS. IV ACCESS PICC LINE ON DORETHA INTACT. INFUSING D5 WITH 3 AMPS OF BICARB @100ML/HR. ASIST TURN AND REPOSTION Q 2 HR. WILL FOLLOW UP.
[2022-02-26] MEDS: FOLIC ACID 1 MG TABLET PO SCH (08:07)
[2022-02-26] MEDS: MULTIVITAMINS,THERAGRAN 1 UDTAB TABLET PO SCH (08:07)
[2022-02-26] MEDS: DOCUSATE SODIUM 250 MG CAPSULE PO SCH ×2 (08:07→21:00)
[2022-02-26] MEDS: PROSOURCE / PROSTAT (PYXIS) 30 ML UDC PO SCH ×3 (08:07→16:43)
[2022-02-26] MEDS: ASCORBIC ACID 500 MG TABLET PO SCH (08:08)
[2022-02-26] MEDS: ZINC SULFATE 220 MG CAPSULE PO SCH (08:08)
[2022-02-26] MEDS: POTASSIUM PHOSPHATE MM 7.5 MMOL in IV NS 0.9% 100 ML IV SCH ×2 (08:31→12:22)
[2022-02-26] MEDS: ARIPIPRAZOLE 2 MG TABLET PO SCH (08:39)
[2022-02-26] MEDS: CHLORHEXIDINE GLUCONATE 15 ML UDC MM SCH ×2 (08:39→16:30)
[2022-02-26] MEDS: POTASSIUM CL. PREMIX PERIPHER. 50 ML IV SCH ×5 (08:39→13:11)
[2022-02-26] MEDS: GABAPENTIN 100 MG CAPSULE PO SCH ×2 (08:39→16:42)
[2022-02-26] MEDS: HEPARIN SODIUM, PORCINE 5000 UNITS/1 ML VIAL SQ SCH (08:40)
[2022-02-26] MEDS: HYDROGEL DRESSING 90 GM TUBE TP SCH (08:41)
[2022-02-26 09:20] LABS: LYMPHOCYTES % (MANUAL) 14 % (16-48); MONOCYTES % (MANUAL) 7 % (0-11.0); NEUTROPHILS % (MANUAL) 79 (42-76)
--- NOTE | 2022-02-26 09:45 | NUR ---
RN NOTES GET CRITICAL LAB RESULT FOR VANCOMYCIN THROUGH LEVEL 66, PHARMACY NOTIFIED.
[2022-02-26 10:33] LABS: ABG BASE EXCESS -6.1 mmol/L; ABG OXYGEN SATURATION 93.9 % (92.0-98.5); ABG PCO2 21.9 mmHg (35.0-45.0); ABG PH 7.482 (7.350-7.450); AaDO2 266.9 mmHg; COHb 0.3 % (0.5-1.5); MetHb 0.3 % (0.0-1.5); O2Hb 93.3 % (94.0-97.0); SITE, ABG Right Radial
--- NOTE | 2022-02-26 11:00 | NUR ---
RN NOTES ON BEDSIDE MONITOR SHOWS HR-130 AND VENTRICULAR COUPLETS , PER Dr CALDERON GET ORDER EKG, EKG RESULT SHOUS JUNCTION RHYTHM, NOTIFIED HOSPITALIST, AND GET ORDER ECHO. ORDER TAKEN AD CARRIED OUT.
[2022-02-26 11:48] LABS: BASOPHILS % (AUTO) 0.2 % (0.0-2.0); LYMPHOCYTES # (AUTO) 0.5 K/uL (0.8-4.8); LYMPHOCYTES % (AUTO) 9.9 % (20.0-44.0); MEAN CORPUSCULAR HGB CONC 32 g/dl (31.0-36.0); MEAN CORPUSCULAR VOLUME 86 fL (82-100); MONOCYTES # (AUTO) 0.2 K/uL (0.1-1.30); MONOCYTES % (AUTO) 3.5 % (2.0-12.0); NEUTROPHILS # (AUTO) 4.3 K/uL (1.8-8.9); NEUTROPHILS % (AUTO) 86.4 % (43.0-81.0); RED BLOOD CELL COUNT(AUTO) 2.31 MIL/uL (4.0-5.2)
[2022-02-26 12:06] LABS: HEMATOCRIT 20 % (33-45)
[2022-02-26 12:07] LABS: HEMOGLOBIN 6.4 g/dL (11.5-14.8); PLATELET COUNT (AUTO) 43 K/uL (150-450)
[2022-02-26 12:42] LABS: LYMPHOCYTES % (MANUAL) 13 % (16-48); MONOCYTES % (MANUAL) 5 % (0-11.0); NEUTROPHILS % (MANUAL) 82 (42-76)
[2022-02-26] MEDS: Magnesium 1GM/D5W 100ML PREMIX PIGGYBACK IV SCH ×4 (13:13→17:22)
[2022-02-26] MEDS: ALBUTEROL HALF STRENGTH 1.25 MG/3 ML VIAL.NEB NEB SCH ×2 (13:20→20:01)
[2022-02-26] MEDS: IPRATROPIUM NEB FS 0.5 MG/2.5 ML AMPUL.NEB NEB SCH ×2 (13:20→20:01)
[2022-02-26] MEDS ORDERED: MEROPENEM 500 MG in IV NS 0.9% 50 ML IV SCH (14:00)
--- NOTE | 2022-02-26 14:00 | NUR ---
rn notes get call from lab critical lab result, hgl 6.0, Mg 1.1 get TO order from Dr CALDERON give 4g of mgcl, one unit of RBC, and get hematology consult. order taken and carried out. notified Dr Castillo as well.
--- NOTE | 2022-02-26 16:10 | NUR ---
CALL RECEIVED FROM LAB. DEPT. ; POTASSIUM LEVEL RESULTED 6.5. NOTIFIED PRIMARY RN-ELLIE AND MADE HER AWARE.
[2022-02-26 16:22] LABS: D-DIMER 1.63 mg/L(FEU (0.17-0.50)
[2022-02-26] MEDS: MEROPENEM 1 G in IV NS 0.9% 100 ML IV SCH ×2 (16:29→22:00)
[2022-02-26] MEDS ORDERED: PHYTONADIONE INJ 10 MG/1 ML AMPUL SQ ONE (17:00)
[2022-02-26] MEDS ORDERED: ACETAMINOPHEN 325 MG TABLET PO ONE (17:00)
[2022-02-26] MEDS ORDERED: diphenhydrAMINE HCL 50 MG/ML VIAL IV ONE (17:30)
[2022-02-26] MEDS ORDERED: ACETAMINOPHEN 650 MG/20.3 ML UDC NG ONE (17:30)
[2022-02-26] MEDS: IV D5/ 0.9% NACL 1,000 ML IV SCH (18:33)
--- NOTE | 2022-02-26 18:45 | NUR ---
RN NOTES NOT ADMINISTERED BENADRYL BECAUSE OF LOW PULSE 44, AND TYLENOL NOT ADMINISTERED BECAUSE OF T-97.2F.
[2022-02-26 19:05] LABS: BILIRUBIN,TOTAL 0.3 mg/dL (0.2-1.0); TOTAL PROTEIN, SERUM 4.7 g/dL (6.4-8.2)
[2022-02-26 19:09] LABS: ALBUMIN 0.9 g/dL (3.4-5.0)
--- NOTE | 2022-02-26 19:10 | NUR ---
RN NOTES STARTED ONE UNIT OF BLOOD TRANSFUSION AT THIS TIME T-97.2F, P-24, BP-120/67,O2-100%, FIO2-40%TRACH/VENT PATIENT, R-24. PATIENT HAS NO ACUTE RESPIRATORY DISTRESS. TOTAL CARE PATIENT . ALSO INFUSING D5NS @75 ML/HR ON NLUAPICC LINE INTACT. ENDORSED ONCOMING RN JANES.
--- NOTE | 2022-02-26 21:45 | NUR ---
ACADEMIC REGISTRAR PRBC TRANSFUSION COMPLETE; PT TOLERATED WELL
--- NOTE | 2022-02-26 21:46 | NUR ---
E COMMERCE MANAGER PER CLS WAIT FOR GRAVEYARD SHIFT TO ETL ANALYST PLATELETS
--- NOTE | 2022-02-26 23:15 | NUR ---
FACE MAN PLATELET TRANSFUSION STARTED
--- NOTE | 2022-02-26 23:30 | NUR ---
CELL MAKER UPDATED PTS MOM ON PLAN OF CARE
[2022-02-27] VITALS (51 sets, daily range): BP systolic 85–142; BP diastolic 40–79
[2022-02-27] MEDS: IPRATROPIUM NEB FS 0.5 MG/2.5 ML AMPUL.NEB NEB SCH ×4 (01:54→20:05)
[2022-02-27] MEDS: ALBUTEROL HALF STRENGTH 1.25 MG/3 ML VIAL.NEB NEB SCH ×4 (01:54→20:05)
[2022-02-27] MEDS: BLOOD SUGAR DIAGNOSTIC 1 EACH STRIP IN SCH ×5 (03:27→20:27)
[2022-02-27] MEDS: IV NS 0.9% 250 ML IV PRN ×2 (03:30→19:42)
[2022-02-27 04:34] LABS: BASOPHILS % (AUTO) 0.2 % (0.0-2.0); HEMATOCRIT 27 % (33-45); HEMOGLOBIN 8.8 g/dL (11.5-14.8); LYMPHOCYTES # (AUTO) 0.6 K/uL (0.8-4.8); LYMPHOCYTES % (AUTO) 9.4 % (20.0-44.0); MEAN CORPUSCULAR HGB CONC 33 g/dl (31.0-36.0); MEAN CORPUSCULAR VOLUME 84 fL (82-100); MONOCYTES # (AUTO) 0.2 K/uL (0.1-1.30); MONOCYTES % (AUTO) 2.9 % (2.0-12.0); NEUTROPHILS # (AUTO) 5.3 K/uL (1.8-8.9); NEUTROPHILS % (AUTO) 87.5 % (43.0-81.0); PLATELET COUNT (AUTO) 70 K/uL (150-450); RED BLOOD CELL COUNT(AUTO) 3.16 MIL/uL (4.0-5.2); WHITE BLOOD COUNT (AUTO) 6.1 K/uL (4.3-11.0)
[2022-02-27 05:02] LABS: CALCIUM, SERUM 6.1 mg/dL (8.5-10.1); CREATININE 0.8 mg/dL (0.6-1.3); MAGNESIUM 2.1 mg/dL (1.8-2.4); PHOSPHORUS 2.4 mg/dL (2.5-4.9)
[2022-02-27 05:04] LABS: POTASSIUM 2.5 mmol/L (3.5-5.1)
[2022-02-27 05:11] LABS: D-DIMER 1.53 mg/L(FEU (0.17-0.50)
[2022-02-27] MEDS: FLUDROCORTISONE 0.1 MG TABLET PO SCH ×3 (05:16→20:27)
[2022-02-27] MEDS: HYDROCORTISONE SOD SUCCINATE 100 MG/2 ML VIAL IV SCH ×3 (05:16→17:16)
[2022-02-27] MEDS: MEROPENEM 1 G in IV NS 0.9% 100 ML IV SCH ×3 (06:00→22:00)
[2022-02-27] MEDS: POTASSIUM CL. PREMIX PERIPHER. 50 ML IV SCH ×6 (06:30→11:47)
--- NOTE | 2022-02-27 06:38 | NUR ---
pt resting on vent at this time with low hr about 45 Addendum: 02/27/22 at 0639 by LYNETTE ESTRADA Amended: Links added.
[2022-02-27] MEDS: PANTOPRAZOLE 40 MG TABLET.DR PO SCH (07:30)
--- NOTE | 2022-02-27 07:30 | NUR ---
RN NOTES PT FOUND SEMI FOWLERS DISPLAYING NO S/S OF DISTRESS, FLACC = 0 AND BILATERAL RISE AND FALL OF THE CHEST OBSERVED. PT CURRENTLY NOT INTERACTING WITH ENVIRONMENT. PT STEFFANY ON THE MONITOR. NGT INTACT. L UA PICC IS PATIENT AND INTACT. HUNG CATH BELOW PATIENT DRAINING BY GRAVITY. MALACHI HUGGER ON. RN WILL CONTINUE CARE PLAN AND ANTICIPATE NEEDS. SAFETY MEASURES IN PLACE, BED LOCKED AND IN LOWEST POSITION, SIDE RAILS UPX2, CALL LIGHT WITHIN REACH, BED ALARM ARMED.
[2022-02-27] MEDS: IV D5/ 0.9% NACL 1,000 ML IV SCH (07:33)
[2022-02-27 08:06] LABS: IMMUNOGLOBULIN A, SERUM 325 mg/dL (87-352); IMMUNOGLOBULIN G, SERUM 1323 mg/dL (586-1602); IMMUNOGLOBULIN M, SERUM 21 mg/dL (26-217)
--- NOTE | 2022-02-27 08:20 | NUR ---
NURSES NOTES CANNOT CRUSH PROTONIX TAB, ORDER NEEDS TO BE CHANGED, RN WILL CONTACT PROVIDER TO CHANGE ORDER.
--- NOTE | 2022-02-27 08:25 | NUR ---
MD VISIT DR FRANCOIS VISITED PATIENT. MD GAVE ORDERS: CHANGE PROTONIX TAB TO PROTONIX BEADS, START TUBE FEEDING GLUCERNA AT 20 ML/HR WITH GOAL OF 50 ML/HR
[2022-02-27] MEDS ORDERED: GLUCERNA 1.2 1,000 ML BOTTLE GT PRN (09:00)
[2022-02-27] MEDS: FOLIC ACID 1 MG TABLET PO SCH (09:13)
[2022-02-27] MEDS: ARIPIPRAZOLE 2 MG TABLET PO SCH (09:13)
[2022-02-27] MEDS: PROSOURCE / PROSTAT (PYXIS) 30 ML UDC PO SCH ×3 (09:13→17:16)
[2022-02-27] MEDS: MULTIVITAMINS,THERAGRAN 1 UDTAB TABLET PO SCH (09:13)
[2022-02-27] MEDS: HYDROGEL DRESSING 90 GM TUBE TP SCH (09:14)
[2022-02-27] MEDS: DOCUSATE SODIUM 250 MG CAPSULE PO SCH ×2 (09:14→20:27)
[2022-02-27] MEDS: ZINC SULFATE 220 MG CAPSULE PO SCH (09:14)
[2022-02-27] MEDS: GABAPENTIN 100 MG CAPSULE PO SCH ×2 (09:14→17:16)
[2022-02-27] MEDS: PANTOPRAZOLE 40 MG/PACK PACK GT SCH (09:14)
[2022-02-27] MEDS: CHLORHEXIDINE GLUCONATE 15 ML UDC MM SCH ×2 (09:14→17:16)
[2022-02-27] MEDS: ASCORBIC ACID 500 MG TABLET PO SCH (09:14)
[2022-02-27 10:07] LABS: *ANA ANTI-CENTROMERE B AB <0.2 AI (0.0-0.9); *ANA ANTI-DNA(DS) AB, QN 1 IU/mL (0-9); *ANA ANTI-JO-1 <0.2 AI (0.0-0.9); *ANA ANTICHROMATIN ANTIBODY 1.6 AI (0.0-0.9); *ANA RNP ANTIBODIES 0.8 AI (0.0-0.9); *ANA SJOGREN'S ANTI-SS-A 0.8 AI (0.0-0.9); *ANA SJOGREN'S ANTI-SS-B <0.2 AI (0.0-0.9); *ANAANTI-SCLERODERMA-70 AB <0.2 AI (0.0-0.9); *ANASMITH AB 0.2 AI (0.0-0.9)
--- NOTE | 2022-02-27 10:19 | NUR ---
vent changes below per dr. hinson: AC 22 Addendum: 02/27/22 at 1020 by FABIANO FELDER RT Amended: Links added.
[2022-02-27] MEDS: MORPHINE SULFATE INJ 4 MG/ML DISP.SYRIN IV PRN (10:58)
[2022-02-27] MEDS ORDERED: NEUTRA PHOS 1 POWD.PACKET NG ONE (11:00)
[2022-02-27] MEDS: IV D5/ 0.9% NACL 1,000 ML IV PRN (14:53)
--- NOTE | 2022-02-27 19:05 | NUR ---
RN NOTES PT FOUND SEMI FOWLERS DISPLAYING NO S/S OF DISTRESS, FLACC = 0 AND BILATERAL RISE AND FALL OF THE CHEST OBSERVED. PT CONTINUES NON-INTERACTING WITH ENVIRONMENT. NGT INTACT. L UA PICC IS PATIENT AND INTACT. HUNG CATH BELOW PATIENT DRAINING BY GRAVITY. COLOSTOMY BAG INTACT. MALACHI HUGGER OFF. SBAR AND REPORT GIVEN TO ELECTRICAL MECHANICAL TECHNICIAN RN, ALL QUESTIONS ANSWERED. SAFETY MEASURES IN PLACE, BED LOCKED AND IN LOWEST POSITION, SIDE RAILS UPX2, CALL LIGHT WITHIN REACH, BED ALARM ARMED. PT ENDORSED IN STABLE CONDITION FOR JANES.
[2022-02-27] MEDS ORDERED: PHARMACY TO CHANGE PO MEDS TO GT/NG XX PRN (20:30)
[2022-02-27] MEDS ORDERED: LORAZEPAM 0.5 MG TABLET NG PRN (20:33)
[2022-02-27] MEDS ORDERED: ZOLPIDEM TARTRATE 5 MG TABLET NG PRN (20:33)
[2022-02-27] MEDS ORDERED: diphenhydrAMINE HCL ELIX 25 MG/10 ML UDC NG PRN (20:33)
[2022-02-27] MEDS: FLUDROCORTISONE 0.1 MG TABLET NG SCH (20:38)
[2022-02-27] MEDS: DOCUSATE SODIUM LIQ 100 MG/10 ML UDC GT SCH (20:38)
[2022-02-28] VITALS (48 sets, daily range): BP systolic 102–132; BP diastolic 47–76
[2022-02-28] MEDS: BLOOD SUGAR DIAGNOSTIC 1 EACH STRIP IN SCH ×3 (00:07→08:10)
--- NOTE | 2022-02-28 00:11 | NUR ---
ICU/RN: PT NPO FOR PROCEDURES IN AM.
[2022-02-28] MEDS: ALBUTEROL HALF STRENGTH 1.25 MG/3 ML VIAL.NEB NEB SCH ×4 (01:37→19:48)
[2022-02-28] MEDS: IPRATROPIUM NEB FS 0.5 MG/2.5 ML AMPUL.NEB NEB SCH ×4 (01:37→19:48)
[2022-02-28] MEDS: IV D5/ 0.9% NACL 1,000 ML IV PRN ×2 (03:39→17:23)
[2022-02-28 04:00] LABS: BASOPHILS % (AUTO) 0.2 % (0.0-2.0); HEMATOCRIT 26 % (33-45); HEMOGLOBIN 8.3 g/dL (11.5-14.8); LYMPHOCYTES # (AUTO) 0.8 K/uL (0.8-4.8); LYMPHOCYTES % (AUTO) 13.8 % (20.0-44.0); MEAN CORPUSCULAR HGB CONC 32 g/dl (31.0-36.0); MEAN CORPUSCULAR VOLUME 84 fL (82-100); MONOCYTES # (AUTO) 0.2 K/uL (0.1-1.30); MONOCYTES % (AUTO) 4.1 % (2.0-12.0); NEUTROPHILS % (AUTO) 81.9 % (43.0-81.0); PLATELET COUNT (AUTO) 98 K/uL (150-450); RED BLOOD CELL COUNT(AUTO) 3.04 MIL/uL (4.0-5.2); WHITE BLOOD COUNT (AUTO) 6.1 K/uL (4.3-11.0)
[2022-02-28] MEDS: FLUDROCORTISONE 0.1 MG TABLET NG SCH ×3 (04:11→20:08)
[2022-02-28 04:20] LABS: D-DIMER 1.69 mg/L(FEU (0.17-0.50)
[2022-02-28 04:21] LABS: CREATININE 0.8 mg/dL (0.6-1.3); MAGNESIUM 1.8 mg/dL (1.8-2.4); PHOSPHORUS 1.9 mg/dL (2.5-4.9)
[2022-02-28 04:24] LABS: CALCIUM, SERUM 5.9 mg/dL (8.5-10.1)
[2022-02-28] MEDS: MORPHINE SULFATE INJ 4 MG/ML DISP.SYRIN IV PRN ×3 (05:25→21:59)
[2022-02-28] MEDS: MEROPENEM 1 G in IV NS 0.9% 100 ML IV SCH ×3 (06:00→23:00)
--- NOTE | 2022-02-28 06:30 | NUR ---
pt remains on previous settings with no vent changes. pt receiving breathing tx q6. pt resting comfortably on vent at this time Addendum: 02/28/22 at 0631 by LYNETTE ELLISON RT Amended: Links added.
--- NOTE | 2022-02-28 06:48 | NUR ---
ICU/RN: DR. KATZ NOTIFIED OF CALCIUM LEVEL 5.9 NO NEW ORDERS.
--- NOTE | 2022-02-28 07:30 | NUR ---
RN NOTES PT FOUND SEMI FOWLERS DISPLAYING NO S/S OF DISTRESS, FLACC = 0 AND BILATERAL RISE AND FALL OF THE CHEST OBSERVED. PT CURRENTLY STEFFANY ON THE MONITOR. L UA PICC IS PATIENT AND INTACT. R NARE NGT INTACT, TUBE FEEDING TURNED OFF AT MN PER CAR REPAIRER APPRENTICE. COLOSTOMY BAG IS INTACT. HUNG CATH BELOW PATIENT DRAINING BY GRAVITY. RN WILL CONTINUE CARE PLAN AND ANTICIPATE NEEDS. SAFETY MEASURES IN PLACE, BED LOCKED AND IN LOWEST POSITION, SIDE RAILS UPX2, CALL LIGHT WITHIN REACH, BED ALARM ARMED.
[2022-02-28 08:28] LABS: ABG BASE EXCESS -6.6 mmol/L; ABG OXYGEN SATURATION 97.7 % (92.0-98.5); ABG PCO2 28.5 mmHg (35.0-45.0); ABG PO2 110.5 mmHg (75.0-100.0); AaDO2 141.9 mmHg; COHb 0.2 % (0.5-1.5); MetHb 0.3 % (0.0-1.5); O2Hb 97.2 % (94.0-97.0); SITE, ABG Right Radial
[2022-02-28] MEDS: PROSOURCE / PROSTAT (PYXIS) 30 ML UDC PO SCH ×3 (08:59→17:27)
[2022-02-28] MEDS: DOCUSATE SODIUM LIQ 100 MG/10 ML UDC GT SCH ×2 (09:00→20:08)
[2022-02-28] MEDS ORDERED: POTASSIUM CHLORIDE 20 MEQ TAB.PRT.SR PO ONE (09:00)
[2022-02-28] MEDS: HYDROCORTISONE SOD SUCCINATE 100 MG/2 ML VIAL IV SCH (09:00)
[2022-02-28] MEDS: GABAPENTIN 100 MG CAPSULE PO SCH ×2 (09:01→17:27)
[2022-02-28] MEDS: ASCORBIC ACID 500 MG TABLET NG SCH (09:01)
[2022-02-28] MEDS: MULTIVITAMINS,THERAGRAN 1 UDTAB TABLET GT SCH (09:01)
[2022-02-28] MEDS: FOLIC ACID 1 MG TABLET PO SCH (09:01)
[2022-02-28] MEDS: ZINC SULFATE 220 MG CAPSULE NG SCH (09:01)
[2022-02-28] MEDS: PANTOPRAZOLE 40 MG/PACK PACK GT SCH (09:01)
[2022-02-28] MEDS: HYDROGEL DRESSING 90 GM TUBE TP SCH (09:02)
[2022-02-28] MEDS: CHLORHEXIDINE GLUCONATE 15 ML UDC MM SCH ×2 (09:02→17:27)
[2022-02-28] MEDS: ARIPIPRAZOLE 2 MG TABLET NG SCH (09:02)
--- NOTE | 2022-02-28 09:45 | NUR ---
MD VISIT DR PAULA VISITED PATIENT, RN SPOKE TO DO ABOUT CARE PLAN. GAVE ORDERS: STOP ACCU CHECK, CHANGE TUBE FEEDING TO JEVITY 1.2 STARTING AT 20 ML/HR WITH A GOAL OF 50 ML/HR. RN ACKNOWLEDGED AND WILL ENTER ORDERS DIRECTED.
[2022-02-28] MEDS ORDERED: NEUTRA PHOS 1 POWD.PACKET NG ONE (10:00)
[2022-02-28] MEDS ORDERED: POTASSIUM CHLORIDE 20 MEQ POWDER PACKET NG SCH (10:00)
[2022-02-28] MEDS: FLUCONAZOLE (100 MG) 100 MG TABLET PO SCH (11:21)
[2022-02-28] MEDS: COLISTIMETHATE SODIUM 150 MG CBA VIAL NEB SCH ×2 (11:52→20:32)
[2022-02-28] MEDS: JEVITY 1.2 CAL 1,000 ML BOTTLE GT PRN (12:00)
--- NOTE | 2022-02-28 16:30 | NUR ---
WEIGHER ALLOY COMMUNICATION RN RECEIVED CALL FROM XENIA CHIEF OPERATIONS OFFICER [facility], STATING THAT PT HAS VRE OF URINE. RN INFORMED WEIGHER ALLOY WARD. WEIGHER ALLOY GAVE ORDERS: DAPTOMYCIN 500 MG IV DAILY. RN ACKNOWLEDGED AND WILL EXECUTE ORDERS.
[2022-02-28] MEDS ORDERED: VANCOMYCIN 1 GM in IV D5W 250ml IV SCH (18:00)
[2022-02-28] MEDS: DAPTOMYCIN 500 MG in IV NS 0.9% 50 ML IV SCH (18:37)
[2022-02-28] MEDS ORDERED: FOSFOMYCIN TROMETHAMINE 3 G/PKT PACKET PO ONE (19:00)
--- NOTE | 2022-02-28 19:20 | NUR ---
RN NOTES PT FOUND SEMI FOWLERS DISPLAYING NO S/S OF DISTRESS, FLACC = 0 AND BILATERAL RISE AND FALL OF THE CHEST OBSERVED. L UA PICC IS PATIENT AND INTACT. R NARE NGT INTACT. COLOSTOMY BAG IS INTACT. HUNG CATH BELOW PATIENT DRAINING BY GRAVITY. SBAR AND REPORT GIVEN TO SENIOR MECHANICAL DESIGNER RN, ALL QUESTIONS ANSWERED. SAFETY MEASURES IN PLACE, BED LOCKED AND IN LOWEST POSITION, SIDE RAILS UPX2, CALL LIGHT WITHIN REACH, BED ALARM ARMED. PT ENDORSED IN STABLE CONDITION FOR JANES.
[2022-02-28] MEDS: HYDROCODONE/APAP 5/325MG TABLET PO PRN (20:08)
[2022-02-28] MEDS: CEFTAZIDIME 1 G in IV D5W 50 ML IV SCH (21:00)
[2022-02-28] MEDS: IV NS 0.9% 250 ML IV PRN (22:00)
[2022-03-01] VITALS (34 sets, daily range): BP systolic 81–114; BP diastolic 32–55
--- NOTE | 2022-03-01 | NUR ---
ICU/RN: MALACHI ARMANDO.
[2022-03-01] MEDS: ALBUTEROL HALF STRENGTH 1.25 MG/3 ML VIAL.NEB NEB SCH ×4 (02:18→19:28)
[2022-03-01] MEDS: IPRATROPIUM NEB FS 0.5 MG/2.5 ML AMPUL.NEB NEB SCH ×4 (02:18→19:28)
[2022-03-01] MEDS: MORPHINE SULFATE INJ 4 MG/ML DISP.SYRIN IV PRN ×4 (02:37→21:27)
--- NOTE | 2022-03-01 02:47 | NUR ---
ICU/RN: [facility] FIRST STEP AIR MATTRESS APPLIED.
[2022-03-01 04:17] LABS: CALCIUM, SERUM 6.1 mg/dL (8.5-10.1); CREATININE 0.7 mg/dL (0.6-1.3); PHOSPHORUS 1.9 mg/dL (2.5-4.9)
[2022-03-01] MEDS: CEFTAZIDIME 1 G in IV D5W 50 ML IV SCH (05:01)
[2022-03-01] MEDS: FLUDROCORTISONE 0.1 MG TABLET NG SCH ×3 (05:01→21:28)
--- NOTE | 2022-03-01 05:41 | NUR ---
end of shift resp note pt remains on vent on previous settings. spo2 decreased during 0500 check and pt complaining of pain. fio2 increased to 50% at this time. hr and rr stable at this time. Addendum: 03/01/22 at 0543 by LYNETTE ELLISON RT Amended: Links added.
[2022-03-01] MEDS: MEROPENEM 1 G in IV NS 0.9% 100 ML IV SCH (06:00)
[2022-03-01] MEDS: IV D5/ 0.9% NACL 1,000 ML IV PRN (06:15)
[2022-03-01 07:07] LABS: *SPE A/G RATIO 0.4 (0.7-1.7); *SPE ALPHA-1-GLOBULIN 0.1 g/dL (0.0-0.4); *SPE ALPHA-2-GLOBULIN 0.3 g/dL (0.4-1.0); *SPE BETA GLOBULIN 0.4 g/dL (0.7-1.3); *SPE M-SPIKE Not Observed g/dL (Not Observed)
[2022-03-01 07:39] LABS: BASOPHILS % (AUTO) 0.2 % (0.0-2.0); EOSINOPHILS % (AUTO) 0.4 % (0.0-6.0); HEMATOCRIT 25 % (33-45); HEMOGLOBIN 8.3 g/dL (11.5-14.8); LYMPHOCYTES # (AUTO) 1.5 K/uL (0.8-4.8); LYMPHOCYTES % (AUTO) 21.8 % (20.0-44.0); MEAN CORPUSCULAR HGB CONC 33 g/dl (31.0-36.0); MEAN CORPUSCULAR VOLUME 84 fL (82-100); MONOCYTES # (AUTO) 0.3 K/uL (0.1-1.30); MONOCYTES % (AUTO) 3.8 % (2.0-12.0); NEUTROPHILS # (AUTO) 5.2 K/uL (1.8-8.9); NEUTROPHILS % (AUTO) 73.8 % (43.0-81.0); PLATELET COUNT (AUTO) 100 K/uL (150-450); WHITE BLOOD COUNT (AUTO) 7.1 K/uL (4.3-11.0)
--- NOTE | 2022-03-01 07:40 | NUR ---
RN OPENING NOTES RECEIVED PT IN BED A/O X -3. PT ON ORDERED VENT SETTINGS SATING AT 98%. NGT NOTED AT R NARE WITH JEVITY @ 20 ML/HR. IV ACCESS NOTED AT DORETHA PICC RUNNING D5 NS @ 75 ML/HR AND NS AT TKO. ALL SAFETY MEASURES IN PLACE, BED IN LOWEST LOCKED POSITION, CALL LIGHT WITHIN REACH. WILL CONT. TO MONITOR THROUGHOUT SHIFT.
[2022-03-01 07:47] LABS: BILIRUBIN,TOTAL 0.1 mg/dL (0.2-1.0); TOTAL PROTEIN, SERUM 4.4 g/dL (6.4-8.2)
[2022-03-01 08:02] LABS: ALBUMIN 0.9 g/dL (3.4-5.0)
[2022-03-01] MEDS: COLISTIMETHATE SODIUM 150 MG CBA VIAL NEB SCH ×2 (08:02→20:57)
[2022-03-01] MEDS: ZINC SULFATE 220 MG CAPSULE NG SCH (08:11)
[2022-03-01] MEDS: ARIPIPRAZOLE 2 MG TABLET NG SCH (08:13)
[2022-03-01] MEDS: MULTIVITAMINS,THERAGRAN 1 UDTAB TABLET GT SCH (08:13)
[2022-03-01] MEDS: FLUCONAZOLE (100 MG) 100 MG TABLET PO SCH (08:13)
[2022-03-01] MEDS: FOLIC ACID 1 MG TABLET PO SCH (08:13)
[2022-03-01] MEDS: ASCORBIC ACID 500 MG TABLET NG SCH (08:13)
[2022-03-01] MEDS: PANTOPRAZOLE 40 MG/PACK PACK GT SCH (08:14)
[2022-03-01] MEDS: HYDROCORTISONE SOD SUCCINATE 100 MG/2 ML VIAL IV SCH (08:14)
[2022-03-01] MEDS: DOCUSATE SODIUM LIQ 100 MG/10 ML UDC GT SCH ×2 (08:14→21:00)
[2022-03-01] MEDS: GABAPENTIN 100 MG CAPSULE PO SCH ×2 (08:14→16:11)
[2022-03-01] MEDS: CHLORHEXIDINE GLUCONATE 15 ML UDC MM SCH ×2 (08:15→16:11)
[2022-03-01] MEDS: PROSOURCE / PROSTAT (PYXIS) 30 ML UDC PO SCH ×3 (08:15→16:12)
[2022-03-01] MEDS: HYDROGEL DRESSING 90 GM TUBE TP SCH (08:15)
[2022-03-01 08:44] LABS: LYMPHOCYTES % (MANUAL) 20 % (16-48); MONOCYTES % (MANUAL) 3 % (0-11.0); NEUTROPHILS % (MANUAL) 77 (42-76)
--- NOTE | 2022-03-01 09:31 | NUR ---
CHEST X RAY RESULTS SENT TO MD. DR. HUGGINS NOTIFIED.
--- NOTE | 2022-03-01 09:51 | NUR ---
PER DR. HUGGINS'S ORDER. WILL INCREASE TUBE FEEDING TO 50 ML/ HR. AND STOP IV INFUSION.
[2022-03-01] MEDS: POTASSIUM CL. PREMIX PERIPHER. 50 ML IV SCH ×8 (10:00→17:00)
[2022-03-01] MEDS ORDERED: ALBUMIN 25% 25 GM in PREMIX 1 EA IV SCH (11:00)
--- NOTE | 2022-03-01 12:20 | NUR ---
SS consult received for self neglect concerns by patient's mother, Jose Eduardo tel:[phone]. SW will follow at a later time..
--- NOTE | 2022-03-01 13:15 | NUR ---
CLARIFIED WITH PHARMACY, SPOKE TO DR. LION, WILL CONTINUE TO GIVE POTASSIUM BAGS 4-8.
[2022-03-01] MEDS: MEROPENEM 500 MG in IV NS 0.9% 50 ML IV SCH ×2 (14:01→23:26)
--- NOTE | 2022-03-01 15:00 | NUR ---
Spoke to Dr. Mcduffie about pt. low bp. Per MD, ordered midodrine TID, and one time albumin for 100 mls.
[2022-03-01] MEDS ORDERED: NEUTRA PHOS 1 POWD.PACKET PO ONE (15:30)
[2022-03-01] MEDS ORDERED: ALBUMIN 25% 25 GM in PREMIX 1 EA IV ONE (16:00)
[2022-03-01] MEDS: MIDODRINE HCL (5MG) 5 MG TABLET NG SCH (16:11)
[2022-03-01] MEDS: DAPTOMYCIN 500 MG in IV NS 0.9% 50 ML IV SCH (18:00)
--- NOTE | 2022-03-01 18:35 | NUR ---
CLOSING NOTE PLAN FOR PT UNCHANGED. PT IS A/O X3-4. ON ORDERED VENT SETTINGS. AC 22, TV 425, FIO2 40%, PEEP 5. TELE SHOWS SR, NGT FEEDING JEVITY AT 50 ML /HR. IV ACCESS NOTED AT [facility] PIC. ALL SAFETY MEASURES IN PLACE, WILL ENDORSE TO WOOL PULLER RN.
--- NOTE | 2022-03-01 19:35 | NUR ---
ICU/MANAGER FRONT RECEIVED REPORT FROM DAY NURSE. SEE FLOWSHEET FOR ASSESSMENT, PT HAS MANY WOUND WHICH ARE ADDRESSED ON THE FLOWSHEET ALONG THE INTERVENTIONS TO EACH. CALL LIGHT WITHIN REACH. PT ASKED WHEN PAIN MEDICATION WAS, PT WAS TOLD AT 2130. WILL CONTINUE TO MONITOR THIS PT.
--- NOTE | 2022-03-01 19:50 | NUR ---
ICU/KENO WRITER/RUNNER RT GAVE BREATHING TREATMENT OF COLISTIMETHATE.
--- NOTE | 2022-03-01 20:30 | NUR ---
ICU/CORK CUTTER WENT TO REPOSITION PT DUE TO THE MANY SKIN ISSUES, PT REFUSED TO TURN. EXPLAINED THAT THIS IS NECESSARY, HOWEVER PT IS STILL REFUSING. MADE CHARGE NURSE AWARE OF THIS.
--- NOTE | 2022-03-01 21:20 | NUR ---
PT TRACH ON VENT. PT IS AWAKE AND ALERT NO RESP DISTRESS. PT TOLERATING VENT SETTINGS. SX'D SMALL AMT OF WHITE SECRETIONS. AMBU BAG AT BEDSIDE. CONTINUE TO MONITOR. Addendum: 03/01/22 at 2122 by HARINI PRATT RT Amended: Links added.
--- NOTE | 2022-03-01 21:25 | NUR ---
ICU/COMMERCIAL INSTALLER PT HAS A COLOSTOMY, AND THERE IS A 2100 DOSE OF STOOL SOFTENER, THIS WAS HELD DUE TO THE FACT STOOL IS LIQUID IN THE COLOSTOMY. WILL HAVE THIS ORDER CLARIFIED IN THE MORNING IF SHOULD IT CONTINUE OR HAVE D/C'D.
--- NOTE | 2022-03-01 22:00 | NUR ---
ICU/ROOFING LAYER PT REQUESTED MORPHINE 4MG IVP PRN FOR PAIN RATED 10/10 TO GENERALIZED AREAS OF HER BUDY. CHARGE NURSE MADE AWARE THEN GIVEN. CALL LIGHT WITHIN REACH, WILL CONTINUE TO MONITOR THIS PT.
[2022-03-02] VITALS (25 sets, daily range): BP systolic 98–137; BP diastolic 40–67
[2022-03-02] MEDS: IPRATROPIUM NEB FS 0.5 MG/2.5 ML AMPUL.NEB NEB SCH ×4 (01:06→19:41)
[2022-03-02] MEDS: ALBUTEROL HALF STRENGTH 1.25 MG/3 ML VIAL.NEB NEB SCH ×4 (01:06→19:41)
[2022-03-02] MEDS: JEVITY 1.2 CAL 1,000 ML BOTTLE GT PRN (01:13)
[2022-03-02] MEDS: IV NS 0.9% 250 ML IV PRN (01:14)
[2022-03-02] MEDS: MORPHINE SULFATE INJ 4 MG/ML DISP.SYRIN IV PRN ×5 (01:31→22:28)
--- NOTE | 2022-03-02 01:32 | NUR ---
ICU/INFANTRY OPERATIONS SPECIALIST PT REQUESTED MORPHINE 4MG IVP PRN FOR PAIN RATED 10/10 TO GENERALIZED AREAS OF HER BODY. CHARGE NURSE MADE AWARE OF THIS THEN GIVEN MEDICATION FOR PAIN. CALL LIGHT WITHIN REACH, WILL CONTINUE TO MONITOR THIS PT.
[2022-03-02 04:19] LABS: BASOPHILS % (AUTO) 0.2 % (0.0-2.0); EOSINOPHILS % (AUTO) 0.3 % (0.0-6.0); HEMATOCRIT 24 % (33-45); HEMOGLOBIN 7.7 g/dL (11.5-14.8); LYMPHOCYTES # (AUTO) 1.1 K/uL (0.8-4.8); LYMPHOCYTES % (AUTO) 8.2 % (20.0-44.0); MEAN CORPUSCULAR HGB CONC 33 g/dl (31.0-36.0); MEAN CORPUSCULAR VOLUME 84 fL (82-100); MONOCYTES # (AUTO) 0.4 K/uL (0.1-1.30); MONOCYTES % (AUTO) 2.8 % (2.0-12.0); NEUTROPHILS # (AUTO) 11.7 K/uL (1.8-8.9); NEUTROPHILS % (AUTO) 88.5 % (43.0-81.0); PLATELET COUNT (AUTO) 103 K/uL (150-450); RED BLOOD CELL COUNT(AUTO) 2.81 MIL/uL (4.0-5.2); WHITE BLOOD COUNT (AUTO) 13.2 K/uL (4.3-11.0)
[2022-03-02 04:29] LABS: ALBUMIN 1.5 g/dL (3.4-5.0); BILIRUBIN,TOTAL 0.2 mg/dL (0.2-1.0); CALCIUM, SERUM 6.2 mg/dL (8.5-10.1); CREATININE 0.7 mg/dL (0.6-1.3); PHOSPHORUS 1.5 mg/dL (2.5-4.9); POTASSIUM 3.6 mmol/L (3.5-5.1); TOTAL PROTEIN, SERUM 4.6 g/dL (6.4-8.2)
--- NOTE | 2022-03-02 05:35 | NUR ---
ICU/SCHEDULE MANAGER PT REQUESTED MORPHINE 4MG IVP PRN FOR PAIN RATED 10/10 TO GENERALIZED AREAS OF HER BODY. CHARGE NURSE MADE AWARE OF THIS THEN GIVEN MEDICATION FOR PAIN. CALL LIGHT WITHIN REACH, WILL CONTINUE TO MONITOR THIS PT.
[2022-03-02] MEDS: FLUDROCORTISONE 0.1 MG TABLET NG SCH ×3 (05:40→21:48)
[2022-03-02] MEDS: MEROPENEM 500 MG in IV NS 0.9% 50 ML IV SCH ×3 (06:18→22:38)
[2022-03-02] MEDS: COLISTIMETHATE SODIUM 150 MG CBA VIAL NEB SCH ×2 (08:00→21:07)
[2022-03-02] MEDS: PANTOPRAZOLE 40 MG/PACK PACK GT SCH (08:12)
[2022-03-02] MEDS: CHLORHEXIDINE GLUCONATE 15 ML UDC MM SCH ×2 (08:12→16:29)
[2022-03-02] MEDS: ARIPIPRAZOLE 2 MG TABLET NG SCH (08:12)
[2022-03-02] MEDS: ZINC SULFATE 220 MG CAPSULE NG SCH (08:13)
[2022-03-02] MEDS: FLUCONAZOLE (100 MG) 100 MG TABLET PO SCH (08:13)
[2022-03-02] MEDS: GABAPENTIN 100 MG CAPSULE PO SCH ×2 (08:13→16:30)
[2022-03-02] MEDS: ASCORBIC ACID 500 MG TABLET NG SCH (08:14)
[2022-03-02] MEDS: MIDODRINE HCL (5MG) 5 MG TABLET NG SCH ×3 (08:14→16:30)
[2022-03-02] MEDS: MULTIVITAMINS,THERAGRAN 1 UDTAB TABLET GT SCH (08:14)
[2022-03-02] MEDS: HYDROCORTISONE SOD SUCCINATE 100 MG/2 ML VIAL IV SCH (08:14)
[2022-03-02] MEDS: FOLIC ACID 1 MG TABLET PO SCH (08:14)
[2022-03-02] MEDS: HYDROGEL DRESSING 90 GM TUBE TP SCH (08:15)
[2022-03-02] MEDS: DOCUSATE SODIUM LIQ 100 MG/10 ML UDC GT SCH ×2 (08:15→21:48)
[2022-03-02] MEDS: PROSOURCE / PROSTAT (PYXIS) 30 ML UDC PO SCH ×3 (08:15→16:30)
[2022-03-02] MEDS ORDERED: ALBUMIN 25% 25 GM in PREMIX 1 EA IV SCH (09:00)
[2022-03-02] MEDS: POTASSIUM PHOSPHATE MM 15 MMOL in IV NS 0.9% 250 ML IV SCH ×2 (10:04→14:02)
--- NOTE | 2022-03-02 10:30 | NUR ---
RN OPENING NOTE PLAN FOR PT UNCHANGED. PT IS A/O X3-4. ON ORDERED VENT SETTINGS. AC 22, TV 425, FIO2 40%, PEEP 5. TELE SHOWS SR, NGT FEEDING JEVITY AT 50 ML /HR. IV ACCESS NOTED AT [facility]. ALL SAFETY MEASURES IN PLACE, WILL MONITOR THROUGHOUT SHIFT.
--- NOTE | 2022-03-02 10:33 | NUR ---
PT MAP 68, PER DR. PAULA, WILL STOP ALBUMIN AND DC ORDER.
[2022-03-02] MEDS ORDERED: Magnesium 1 GM/2 ML VIAL IV ONE (14:30)
[2022-03-02] MEDS: Magnesium 1GM/D5W 100ML PREMIX 100 ML IV SCH ×2 (15:03→16:22)
--- NOTE | 2022-03-02 16:00 | NUR ---
SS Note: SW received consult for alleged self neglect per patient's mother, Jose Eduardo [phone]. SW called Jose Eduardo and she reported that the pt. has Hx. of Lupus and Quadriplegia. Per the mother she is concerned for the patient's health and safety. Mother stated that the pt. is still deemed capable of making her own decisions. However, per mother, the tp is non compliant with her medications often. Per mother, often refuses care offered by nursing at the facility she resides at: [facility] [[address] [place] [address] ]. SW called [facility] and spoke with a nurse who reported hat the pt. does have a Hx. of refusing medication as she has stated "she doesn't like the taste of the pills". Per nurse, the pt. also refuses being touched at times due to complaints of pain. Per nurse, the pt. struggles to consent for trach changes. DONTA will follow up and make Ombudsman report.
[2022-03-02] MEDS: DAPTOMYCIN 500 MG in IV NS 0.9% 50 ML IV SCH (19:00)
--- NOTE | 2022-03-02 19:30 | NUR ---
RN OPENING NOTES RECEIVED CARE OF PATIENT FROM AM NURSE, PATIENT NON-VERBAL, OPENS EYES, ABLE TO MAKE NEEDS KNOWN WITH FACIAL AND HAND EXPRESSIONS. PATIENT EXPRESSES CHRONIC GENERALIZED PAIN, WILL MANAGE PAIN WITH CONSTANT REPOSITIONING, OFFLOAD, AND PRN MORPHINE. PATIENT WITH TRACH ON MECHANICAL VENTILATION WITH ORDERED SETTINGS, TOLERATING WELL, O2 SAT 98%. WILL PERFORM WOUND CARE THIS SHIFT. PATIENT TELE MONITOR SHOWING NSR WITH HR OF 71. WITH NGT, POSITIVE PLACEMENT CONFORMED BY AUSCULTATION, RUNNING WITH JEVITY AT 50ML/HR, NO RESIDUAL NOTED. HUNG CATH PATENT, COLOSTOMY BAG INTACT. NO SIGNIFICANT FINDINGS UPON INITIAL NURSING ASSESSMENTS. SAFETY MEASURES IMPLEMENTED PER HOSPITAL PROTOCOLS. WILL ENDORSE TO AM NURSE FOR JANES.
[2022-03-03] VITALS (32 sets, daily range): BP systolic 110–149; BP diastolic 48–80
[2022-03-03] MEDS: IPRATROPIUM NEB FS 0.5 MG/2.5 ML AMPUL.NEB NEB SCH ×4 (01:18→20:30)
[2022-03-03] MEDS: ALBUTEROL HALF STRENGTH 1.25 MG/3 ML VIAL.NEB NEB SCH ×4 (01:18→20:30)
[2022-03-03] MEDS: JEVITY 1.2 CAL 1,000 ML BOTTLE GT PRN (02:31)
[2022-03-03] MEDS: MORPHINE SULFATE INJ 4 MG/ML DISP.SYRIN IV PRN ×5 (02:31→21:30)
[2022-03-03 04:19] LABS: BASOPHILS % (AUTO) 0.1 % (0.0-2.0); EOSINOPHILS % (AUTO) 0.6 % (0.0-6.0); HEMATOCRIT 25 % (33-45); LYMPHOCYTES # (AUTO) 1.1 K/uL (0.8-4.8); LYMPHOCYTES % (AUTO) 8.4 % (20.0-44.0); MEAN CORPUSCULAR HGB CONC 32 g/dl (31.0-36.0); MEAN CORPUSCULAR VOLUME 84 fL (82-100); MONOCYTES # (AUTO) 0.4 K/uL (0.1-1.30); NEUTROPHILS # (AUTO) 11.7 K/uL (1.8-8.9); NEUTROPHILS % (AUTO) 87.9 % (43.0-81.0); PLATELET COUNT (AUTO) 81 K/uL (150-450); RED BLOOD CELL COUNT(AUTO) 2.96 MIL/uL (4.0-5.2); WHITE BLOOD COUNT (AUTO) 13.3 K/uL (4.3-11.0)
[2022-03-03 04:25] LABS: CALCIUM, SERUM 6.3 mg/dL (8.5-10.1); CREATININE 0.5 mg/dL (0.6-1.3); POTASSIUM 3.8 mmol/L (3.5-5.1)
[2022-03-03 04:30] LABS: BILIRUBIN,TOTAL 0.2 mg/dL (0.2-1.0); TOTAL PROTEIN, SERUM 4.5 g/dL (6.4-8.2)
[2022-03-03 04:36] LABS: ALBUMIN 1.5 g/dL (3.4-5.0)
[2022-03-03 05:11] LABS: BASOPHILS % (MANUAL) 1 % (0.0-2.0); EOSINOPHILS % (MANUAL) 2 % (0-4); LYMPHOCYTES % (MANUAL) 14 % (16-48); MONOCYTES % (MANUAL) 3 % (0-11.0); NEUTROPHILS % (MANUAL) 80 (42-76)
[2022-03-03] MEDS: FLUDROCORTISONE 0.1 MG TABLET NG SCH ×3 (05:32→20:54)
--- NOTE | 2022-03-03 07:10 | NUR ---
RN CLOSING NOTES WILL ENDORSE CARE OF PATIENT TO AM NURSE. PATIENT'S PAIN MANAGED WITH PRN MORPHINE. WOUND CARE DONE ORDERED. ALL DUE MEDS GIVEN. REPOSITIONED Q2H, OFFLOAD EXTREMITIES. NO SIGNIFICANT FINDINGS UPON ALL NURSING ASSESSMENTS. SAFETY MEASURES IMPLEMENTED PER HOSPITAL PROTOCOLS WILL ENDORSE TO AM NURSE FOR JANES.
[2022-03-03] MEDS: IV NS 0.9% 250 ML IV PRN (07:20)
--- NOTE | 2022-03-03 08:00 | NUR ---
RN NOTES RECEIVED PATIENT IN THE BED TRACHEA / VENT DEPENDENT, PORTEX #8 SETTING AC-22, TV-425, FIO2-40%, AND PEEP-5. PATIENT HAS NO ACUTE RESPIRATORY DISTRESS, VSS, SUCTION MOUTH CARE DONE, PATIENT QUADRIPLEGIC, EDEMA GENERALIZED, NGT FEEDING JEVITY 1.2 @50ML/HR NO RESIDUAL. IV ACCESS ON DORETHA PICC LINE INTACT ,TKO RUNNING AT THIS TIME . DUE MEDICATION ADMINISTERED VIA NGT, KEEP HOB ELEVATED FOR ASPIRATION PRECAUTION. COLOSTOMY BAG INTACT, HUNG DRAINING VIA GRAVITY. PATIENT A/A/O ABLE TO EXPRESS SELF. SEEN PATIENT VIA HOSPITALIST DR PAULA, AND PATIENT ASKING CHANGE T-PIECE, EATING, AND REMOVE NGT. PER MD GET TO ORDER SWALLOW EVALUATION, AND NOTIFY Dr HUGGINS POSSIBLE OF CHANGE T-PIECE. Dr HUGGINS NOTIFIED. PATIENT HAS MULTIPLE WOUNDS, AND REFUSING CHANGE POSITION, CHARGE NURSE , AND HOSPITALIST AWARE OF. CALL LIGHT WITHIN TO REACH. PATIENT WATCHING TV. WILL FOLLOW UP.
[2022-03-03] MEDS: CHLORHEXIDINE GLUCONATE 15 ML UDC MM SCH ×2 (09:20→16:20)
[2022-03-03] MEDS: DOCUSATE SODIUM LIQ 100 MG/10 ML UDC GT SCH ×2 (09:20→20:54)
[2022-03-03] MEDS: PANTOPRAZOLE 40 MG/PACK PACK GT SCH (09:20)
[2022-03-03] MEDS: HYDROCORTISONE SOD SUCCINATE 100 MG/2 ML VIAL IV SCH (09:21)
[2022-03-03] MEDS: ZINC SULFATE 220 MG CAPSULE NG SCH (09:21)
[2022-03-03] MEDS: ASCORBIC ACID 500 MG TABLET NG SCH (09:22)
[2022-03-03] MEDS: FLUCONAZOLE (100 MG) 100 MG TABLET PO SCH (09:22)
[2022-03-03] MEDS: MIDODRINE HCL (5MG) 5 MG TABLET NG SCH ×3 (09:23→16:19)
[2022-03-03] MEDS: FOLIC ACID 1 MG TABLET PO SCH (09:24)
[2022-03-03] MEDS: GABAPENTIN 100 MG CAPSULE PO SCH ×2 (09:24→16:19)
[2022-03-03] MEDS: ARIPIPRAZOLE 2 MG TABLET NG SCH (09:24)
[2022-03-03] MEDS: HYDROGEL DRESSING 90 GM TUBE TP SCH (09:25)
[2022-03-03] MEDS: MULTIVITAMINS,THERAGRAN 1 UDTAB TABLET GT SCH (09:25)
[2022-03-03] MEDS: PROSOURCE / PROSTAT (PYXIS) 30 ML UDC PO SCH ×3 (09:26→16:20)
[2022-03-03] MEDS: MEROPENEM 500 MG in IV NS 0.9% 50 ML IV SCH ×3 (09:34→23:10)
[2022-03-03] MEDS: COLISTIMETHATE SODIUM 150 MG CBA VIAL NEB SCH ×2 (09:42→20:55)
[2022-03-03] MEDS ORDERED: HYDROCODONE/APAP 5/325MG TABLET PO PRN (10:00)
--- NOTE | 2022-03-03 10:01 | NUR ---
rn notes administered narco 10/325 mg po prn for generalized pain 04/26 per patient request. bp 123/58, p-67.
[2022-03-03] MEDS: HYDROCODONE/APAP 10/325MG TABLET PO PRN (10:05)
--- NOTE | 2022-03-03 11:47 | NUR ---
RN NOTES ADMINISTERED MORPHINE SULFATE 4 MG/ML IV PUSH FOR GENERALIZED PAIN 04/26 PER PATIENT REQUEST, PREVIOUS MEDICATION WERE ADMINISTERED NOT EFFECTIVE, BP -122/69, P-46, R-22. WILL FOLLOW UP.
[2022-03-03] MEDS: IV 1/2NS 1000 ML 1,000 ML IV PRN (14:25)
--- NOTE | 2022-03-03 15:40 | NUR ---
Agustin: DONTA called Agustin [phone] and left voicemail regarding alleged self-neglect by patient. DONTA will follow up and make written report and fax to Agustin fax: [phone]
--- NOTE | 2022-03-03 16:21 | NUR ---
rn notes administered morphine sulfate 4mg/ml iv push per patient request pain 04/26. bp 123.60, p-59, r- 20 .
--- NOTE | 2022-03-03 18:40 | NUR ---
rn notes patient transferred to the TELE unit with stable condition. bedside report given LESLEY Hirsch follow plan of care.
--- NOTE | 2022-03-03 18:57 | NUR ---
RN NOTE REPORT RECEIVED FROM ELLIE SUTTON. PT TRANSFERRED TO ROOM 106 TELE. PT STABLE DURING TRANSFER, RT AT BEDSIDE. WILL ENDORSE TO FRESH WORK INSPECTOR NURSE FOR JANES.
--- NOTE | 2022-03-03 19:15 | NUR ---
RN NOTES RECEIVED PT FOR CONTINUITY OF CARE. PATIENT A/OX2-3 IN NO S/SX OF ACUTE DISTRESS AT THIS TIME; CURRENTLY ON MECHANICAL VENT; SETTING PRESCRIBED, WITH 02 SAT >95% AT THIS TIME. WITH IV ACCESS L UA PICC LINE PATENT, INTACT AND FLUSHING WELL. WITH RUNNING 1/2 NS@75CC/HR AND GTUBE FEEDING RUNNING PRESCRIBED. WILL ENSURE SAFETY MEASURES WITHIN THE SHIFT. PATIENT BED ALARM IS ON. HEAD OF BED ELEVATED. BED IS LOCKED, IN LOWEST POSITION AND SIDE RAILS UP. CALL LIGHT WITHIN REACH OF THE PATIENT. APPLICABLE ISOLATION PRECAUTIONS IN PLACE. WILL CONTINUE TO MONITOR AND REASSESS FOR ANY CHANGES AND WILL CARRY OUT ANY ONGOING AND ACTIVE MD ORDER.
[2022-03-03] MEDS: DAPTOMYCIN 500 MG in IV NS 0.9% 50 ML IV SCH (19:28)
--- NOTE | 2022-03-03 20:30 | NUR ---
RECEIVED PT TRACH ON VENT WITH THE SETTINGS OF AC 22, VT 425, FIO2 40%,AND PEEP 5. PT TOLERATING VENT SETTINGS. BREATHING TX GIVEN PER MD'S ORDER, NO ADVERSE REACTION NOTED. SX'D SMALL AMT OF SECRETIONS. VENT ALARMS SET AND AUDIBLE AMBU BAG AT BEDSIDE. WILL CONTINUE TO MONITOR T/O SHIFT.
[2022-03-03] MEDS: ACETAMINOPHEN 650 MG/20.3 ML UDC NG PRN (23:09)
[2022-03-04] VITALS (9 sets, daily range): BP systolic 77–123; BP diastolic 42–61
[2022-03-04] MEDS: ALBUTEROL HALF STRENGTH 1.25 MG/3 ML VIAL.NEB NEB SCH ×4 (01:46→19:57)
[2022-03-04] MEDS: IPRATROPIUM NEB FS 0.5 MG/2.5 ML AMPUL.NEB NEB SCH ×4 (01:46→19:57)
--- NOTE | 2022-03-04 04:00 | NUR ---
RN NOTES PATIENT REMAINED TO BE IN NO SIGNS OF ACUTE RESPIRATORY DISTRESS, VITAL SIGNS TAKEN TEMP NOT WNL, APPLIED WARM BLANKET FOR TEMP MGT, PT REFUSED TEMP TO BE TAKEN VIA ORAL. SUCTIONING DONE. TURNING WOUND CARE AND AM PATIENT CARE REFUSED BY PT, RE ATTEMPTED MULTIPLE TIMES BUT PT NON COMPLIANT AND INSISTENTLY REFUSED. LABORER PRESTRESSED CONCRETE MADE AWARE. WILL CONTINUE TO MONITOR AND REASSESS FOR ANY CHANGES THROUGHOUT THE SHIFT.
[2022-03-04] MEDS: FLUDROCORTISONE 0.1 MG TABLET NG SCH (04:53)
[2022-03-04] MEDS: MORPHINE SULFATE INJ 4 MG/ML DISP.SYRIN IV PRN ×2 (04:53→08:56)
[2022-03-04] MEDS: IV 1/2NS 1000 ML 1,000 ML IV PRN ×2 (04:55→22:48)
[2022-03-04] MEDS: JEVITY 1.2 CAL 1,000 ML BOTTLE GT PRN (05:00)
[2022-03-04] MEDS: MEROPENEM 500 MG in IV NS 0.9% 50 ML IV SCH ×3 (06:07→22:01)
[2022-03-04 06:30] LABS: EOSINOPHILS % (AUTO) 0.4 % (0.0-6.0); HEMATOCRIT 21 % (33-45); HEMOGLOBIN 7.1 g/dL (11.5-14.8); LYMPHOCYTES # (AUTO) 0.7 K/uL (0.8-4.8); LYMPHOCYTES % (AUTO) 9.4 % (20.0-44.0); MEAN CORPUSCULAR HGB CONC 33 g/dl (31.0-36.0); MEAN CORPUSCULAR VOLUME 85 fL (82-100); MONOCYTES # (AUTO) 0.2 K/uL (0.1-1.30); MONOCYTES % (AUTO) 2.8 % (2.0-12.0); NEUTROPHILS # (AUTO) 6.7 K/uL (1.8-8.9); NEUTROPHILS % (AUTO) 87.4 % (43.0-81.0); PLATELET COUNT (AUTO) 61 K/uL (150-450); RED BLOOD CELL COUNT(AUTO) 2.51 MIL/uL (4.0-5.2); WHITE BLOOD COUNT (AUTO) 7.6 K/uL (4.3-11.0)
--- NOTE | 2022-03-04 06:30 | NUR ---
RN CLOSING NOTE: PATIENT REMAINS IN ROOM IN NO SIGNS OF RESPIRATORY DISTRESS, PATIENT STILL ON MECH VENT; SETTINGS PRESCRIBED;TOLERATING WELL SATURATING @ 95% SP02. SAFETY MEASURES IMPLEMENTED, BED IN LOWEST POSITION, LOCKED, SIDE RAILS UP, CALL LIGHT WITHIN REACH. ALL NEEDS AND ORDERS ADDRESSED DURING THE SHIFT. IV ACCESS MAINTAINED INTACT, SECURED AND FLUSHING WELL, WITH IV FLUID RUNNING ORDERED. ALSO WITH RUNNING TUBE FEEDING ORDERED; TOLERATED WELL. ALL DUE MEDS GIVEN ORDERED & SCHEDULED ; PATIENT TOLERATED WELL. PT HAS BEEN NON COMPLIANT AND REFUSES WOUND CARE, TURN AND REPOSITION AND PATIENT CARE; WITH ATTEMPTS MULTIPLE TIMES BUT ALL BEEN REFUSED. PATIENT KEPT CLEAN AND COMFORTABLE WITHIN THE SHIFT. PATIENT ENDORSED TO INCOMING SHIFT RN WITH STABLE VITAL SIGN AND FOR CONTINUITY OF CARE.
[2022-03-04 06:53] LABS: BILIRUBIN,TOTAL 0.1 mg/dL (0.2-1.0); CREATININE 0.4 mg/dL (0.6-1.3); POTASSIUM 3.6 mmol/L (3.5-5.1)
[2022-03-04 07:01] LABS: ALBUMIN 1.3 g/dL (3.4-5.0); CALCIUM, SERUM 5.9 mg/dL (8.5-10.1)
[2022-03-04 07:17] LABS: EOSINOPHILS % (MANUAL) 1 % (0-4); LYMPHOCYTES % (MANUAL) 17 % (16-48); NEUTROPHILS % (MANUAL) 82 (42-76)
--- NOTE | 2022-03-04 07:21 | NUR ---
RN OPENING NOTE: RECEIVED PATIENT RESTING IN ROOM IN NO SIGNS OF RESPIRATORY DISTRESS, PATIENT STILL ON MECH VENT; SETTINGS PRESCRIBED;TOLERATING WELL SATURATING @ 98% SP02. SAFETY MEASURES IMPLEMENTED, BED IN LOWEST POSITION, LOCKED, SIDE RAILS UP, CALL LIGHT WITHIN REACH. ALL NEEDS AND ORDERS ADDRESSED DURING THE SHIFT. IV ACCESS MAINTAINED INTACT, SECURED AND FLUSHING WELL, WITH IV FLUID RUNNING. ALSO WITH RUNNING TUBE FEEDING; WAS ENDORSED THAT PT HAS BEEN NON COMPLIANT AND REFUSES WOUND CARE, TURN AND REPOSITION AND PATIENT CARE.
[2022-03-04] MEDS: COLISTIMETHATE SODIUM 150 MG CBA VIAL NEB SCH ×2 (07:49→21:45)
[2022-03-04] MEDS: PANTOPRAZOLE 40 MG/PACK PACK GT SCH (08:25)
[2022-03-04] MEDS: HYDROCORTISONE SOD SUCCINATE 100 MG/2 ML VIAL IV SCH (08:25)
[2022-03-04] MEDS: ARIPIPRAZOLE 2 MG TABLET NG SCH (08:25)
[2022-03-04] MEDS: FOLIC ACID 1 MG TABLET PO SCH (08:26)
[2022-03-04] MEDS: GABAPENTIN 100 MG CAPSULE PO SCH ×2 (08:26→16:42)
[2022-03-04] MEDS: FLUCONAZOLE (100 MG) 100 MG TABLET PO SCH (08:26)
[2022-03-04] MEDS: MULTIVITAMINS,THERAGRAN 1 UDTAB TABLET GT SCH (08:27)
[2022-03-04] MEDS: ASCORBIC ACID 500 MG TABLET NG SCH (08:27)
[2022-03-04] MEDS: ZINC SULFATE 220 MG CAPSULE NG SCH (08:27)
[2022-03-04] MEDS: DOCUSATE SODIUM LIQ 100 MG/10 ML UDC GT SCH ×2 (08:28→21:11)
[2022-03-04] MEDS: PROSOURCE / PROSTAT (PYXIS) 30 ML UDC PO SCH ×3 (08:29→17:00)
[2022-03-04] MEDS ORDERED: Calcium Gluconate 1GM/10ML 4.65 MEQ in IV NS 0.9% 100 ML IV ONE (08:30)
[2022-03-04] MEDS: MIDODRINE HCL (5MG) 5 MG TABLET NG SCH ×3 (08:56→16:19)
[2022-03-04] MEDS: CHLORHEXIDINE GLUCONATE 15 ML UDC MM SCH ×2 (09:00→16:49)
[2022-03-04] MEDS: HYDROGEL DRESSING 90 GM TUBE TP SCH (09:00)
[2022-03-04 09:41] LABS: HEMOGLOBIN 7.3 g/dL (11.5-14.8)
--- NOTE | 2022-03-04 11:21 | NUR ---
vent changes below per dr. hinson for weaning trial: cpap 5 ps 12 fio2 40% pt. is awake and alert and looks tolerating well on above changes. Addendum: 03/04/22 at 1122 by FABIANO FELDER RT Amended: Links added.
--- NOTE | 2022-03-04 13:00 | NUR ---
RN NOTE ATTEMPTED TO PERFORM WOUND CARE PATIENT REFUSED. EDUCATED PATIENT ON IMPORTANCE OF WOUND CARE PATIENT REFUSED.
--- NOTE | 2022-03-04 16:26 | NUR ---
PT. PLACED BACK TO AC 22, VT 425 ML, FIO2 50%, WITH NO PEEP DUE TO LOW BP 60/29 AND 50% FIO2 DUE TO 86% SPO2. RN AWARE ON ABOVE CHANGES MADE. Addendum: 03/04/22 at 1629 by FABIANO FELDER RT Amended: Links added.
[2022-03-04] MEDS ORDERED: IV NS 0.9% 1,000 ML IV ONE (16:30)
--- NOTE | 2022-03-04 16:30 | NUR ---
RN NOTE PATIENTS BLOOD PRESSURE NOTED TO BE 77/42. INFORMED DOCTOR BD. RELIEVED ORDER FOR 1000ML BOLUS, AND ORDER FOR ALBUMIN 25G IV X2 DOSES. ORDERS PLACED.
[2022-03-04 16:32] LABS: HEMOGLOBIN 8.7 g/dL (11.5-14.8)
--- NOTE | 2022-03-04 16:33 | NUR ---
RN NOTE PATIENTS 02 SAT NOTED TO BE 88-91% ON CPAP. PATIENT PLACED BACK ON A/C VC.
[2022-03-04] MEDS: ALBUMIN 25% 25 GM in PREMIX 1 EA IV SCH ×3 (16:42→18:49)
--- NOTE | 2022-03-04 18:38 | NUR ---
RN CLOSING NOTE: PATIENT REMAINS IN ROOM IN NO SIGNS OF RESPIRATORY DISTRESS, PATIENT STILL ON MECH VENT; SETTINGS PRESCRIBED;TOLERATING WELL SATURATING @ 95% SP02. SAFETY MEASURES IMPLEMENTED, BED IN LOWEST POSITION, LOCKED, SIDE RAILS UP, CALL LIGHT WITHIN REACH. ALL NEEDS AND ORDERS ADDRESSED DURING THE SHIFT. IV ACCESS MAINTAINED INTACT, SECURED AND FLUSHING WELL, WITH IV FLUID RUNNING ORDERED. ; TOLERATED WELL. ALL DUE MEDS GIVEN ORDERED & SCHEDULED ; PATIENT TOLERATED WELL. PT HAS BEEN NON COMPLIANT AND REFUSES WOUND CARE, TURN AND REPOSITION AND PATIENT CARE; WITH ATTEMPTS MULTIPLE TIMES BUT ALL BEEN REFUSED. PATIENT KEPT CLEAN AND COMFORTABLE WITHIN THE SHIFT. PATIENT ENDORSED TO INCOMING SHIFT RN WITH STABLE VITAL SIGN AND FOR CONTINUITY OF CARE.
--- NOTE | 2022-03-04 19:10 | NUR ---
RN NOTES RECEIVED PT FOR CONTINUITY OF CARE. PATIENT A/OX2-3 IN NO S/SX OF ACUTE DISTRESS AT THIS TIME; CURRENTLY ON MECHANICAL VENT; SETTING PRESCRIBED, WITH 02 SAT 97% AT THIS TIME. WITH IV ACCESS L UA PICC LINE PATENT, INTACT AND FLUSHING WELL. WITH RUNNING 1/2 NS@75CC/HR. WILL ENSURE SAFETY MEASURES WITHIN THE SHIFT. PATIENT BED ALARM IS ON. HEAD OF BED ELEVATED. BED IS LOCKED, IN LOWEST POSITION AND SIDE RAILS UP. CALL LIGHT WITHIN REACH OF THE PATIENT. APPLICABLE ISOLATION PRECAUTIONS IN PLACE. WILL CONTINUE TO MONITOR AND REASSESS FOR ANY CHANGES AND WILL CARRY OUT ANY ONGOING AND ACTIVE MD ORDER.
[2022-03-04] MEDS: DAPTOMYCIN 500 MG in IV NS 0.9% 50 ML IV SCH (19:53)
--- NOTE | 2022-03-04 20:08 | NUR ---
RT PT RECVD ON AC SETTINGS ORDERED, AND ARJUN WELL. TRACH IS PATENT AND SECURED. NEB TX GIVEN AND ARJUN WELL. SUCTION PRN AND NO SOB NOTED AT THIS TIME. SPO2 > 92%. SPARE TRACH AND AMBU BAG AT BEDSIDE. VENET PLUGGED IN RED OUTLET, ALARMS ON AND AUDIBLE.. WILL CONTINUE TO MONITOR. Addendum: 03/04/22 at 2010 by GENE OBRIEN RT PT SISTER IS BEDSIDE.
[2022-03-04] MEDS: ERGOCALCIFEROL (VITAMIN D 2) 50,000 UNIT CAPSULE NG SCH (21:11)
[2022-03-05] VITALS (42 sets, daily range): BP systolic 80–130; BP diastolic 31–81
[2022-03-05] MEDS: ALBUTEROL HALF STRENGTH 1.25 MG/3 ML VIAL.NEB NEB SCH ×4 (02:06→19:51)
[2022-03-05] MEDS: IPRATROPIUM NEB FS 0.5 MG/2.5 ML AMPUL.NEB NEB SCH ×4 (02:06→19:51)
--- NOTE | 2022-03-05 03:45 | NUR ---
RN NOTES NOTED PT'S SBP <90 81/31, 77/36, 86/38, 77/40, 78/38. MANUAL BP ALSO DONE STILL <90 SBP. NOTIFIED AND SPOKE WITH ONCALL (DR. ARMIJO) PROVIDED PT STATUS UPDATE. PT HX ALSO DISCUSSED. MD ORDER BOLUS 500ML NS. PER MD HE IS OK WITH PT'S SBP IF 80s; CONSIDERING PT'S HISTORY AND BASELINE BP. NO NEED TO TRANSFER TO ICU AT THIS TIME. IF SBP IS <80 WILL NEED TO NOTIFY , RN ACKNOWLEDGED. WILL CONTINUE TO MONITOR AND ASESS THROUGHOUT THE SHIFT. SLIDE FASTENER CHAIN ASSEMBLER MADE AWARE.
[2022-03-05] MEDS ORDERED: IV NS 0.9% 500 ML IV ONE (04:00)
--- NOTE | 2022-03-05 04:00 | NUR ---
RN NOTES PATIENT REMAINED TO BE IN NO SIGNS OF ACUTE RESPIRATORY DISTRESS , VITAL SIGNS WITHIN PARAMETERS AT THIS TIME. REGULAR TURNING AND REPOSITIONING DONE, SUCTIONING DONE, & AM PATIENT CARE RENDERED WILL CONTINUE TO MONITOR AND REASSESS FOR ANY CHANGES THROUGHOUT THE SHIFT.
[2022-03-05] MEDS: MEROPENEM 500 MG in IV NS 0.9% 50 ML IV SCH ×3 (06:16→23:13)
[2022-03-05 06:43] LABS: CALCIUM, SERUM 6.1 mg/dL (8.5-10.1); CREATININE 0.5 mg/dL (0.6-1.3); POTASSIUM 3.5 mmol/L (3.5-5.1)
--- NOTE | 2022-03-05 06:50 | NUR ---
N CLOSING NOTE: PATIENT REMAINS IN ROOM IN NO SIGNS OF RESPIRATORY DISTRESS, PATIENT STILL ON MECH VENT; SETTINGS PRESCRIBED;TOLERATING WELL SATURATING @98%. SAFETY MEASURES IMPLEMENTED, BED IN LOWEST POSITION, LOCKED, SIDE RAILS UP, CALL LIGHT WITHIN REACH. ALL NEEDS AND ORDERS ADDRESSED DURING THE SHIFT. IV ACCESS MAINTAINED INTACT, SECURED AND FLUSHING WELL, WITH IV FLUID RUNNING ORDERED. ALSO WITH RUNNING TUBE FEEDING ORDERED; TOLERATED WELL. ALL DUE MEDS GIVEN ORDERED & SCHEDULED ; PATIENT TOLERATED WELL. PATIENT KEPT CLEAN AND COMFORTABLE WITHIN THE SHIFT. PATIENT ENDORSED TO INCOMING SHIFT RN WITH STABLE VITAL SIGN AND FOR CONTINUITY OF CARE.
[2022-03-05 06:53] LABS: ALBUMIN 1.5 g/dL (3.4-5.0); BILIRUBIN,TOTAL 0.3 mg/dL (0.2-1.0)
--- NOTE | 2022-03-05 08:00 | NUR ---
WASTEWATER PROJECT MANAGER NOTE PATIENT REMAINS IN ROOM IN NO SIGNS OF RESPIRATORY DISTRESS, PATIENT STILL ON MECH VENT; SETTINGS PRESCRIBED;TOLERATING WELL SATURATING @94%. SAFETY MEASURES IMPLEMENTED, BED IN LOWEST POSITION, LOCKED, SIDE RAILS UP, CALL LIGHT WITHIN REACH. ALL NEEDS AND ORDERS ADDRESSED DURING THE SHIFT. IV ACCESS MAINTAINED INTACT, SECURED AND FLUSHING WELL, WITH IV FLUID RUNNING ORDERED. ALSO WITH RUNNING TUBE FEEDING ORDERED; TOLERATED WELL. . PATIENT KEPT CLEAN AND ,RT AT BEDSIDE FOR BREATHING TX ON IVF ORDERED, RT NG TUBE IN PLACE AND CHECKED PLACEMENT BU AUSCULTATION OF AIR, WILL MONITOR
[2022-03-05] MEDS: FLUCONAZOLE (100 MG) 100 MG TABLET PO SCH (08:29)
[2022-03-05] MEDS: DOCUSATE SODIUM LIQ 100 MG/10 ML UDC GT SCH ×2 (08:29→21:00)
[2022-03-05] MEDS: ZINC SULFATE 220 MG CAPSULE NG SCH (08:29)
[2022-03-05] MEDS: ARIPIPRAZOLE 2 MG TABLET NG SCH (08:29)
[2022-03-05] MEDS: MIDODRINE HCL (5MG) 5 MG TABLET NG SCH ×3 (08:30→18:24)
[2022-03-05] MEDS: PANTOPRAZOLE 40 MG/PACK PACK GT SCH (08:30)
[2022-03-05] MEDS: GABAPENTIN 100 MG CAPSULE PO SCH ×2 (08:30→18:19)
[2022-03-05] MEDS: FOLIC ACID 1 MG TABLET PO SCH (08:30)
[2022-03-05] MEDS: ASCORBIC ACID 500 MG TABLET NG SCH (08:30)
[2022-03-05] MEDS: MULTIVITAMINS,THERAGRAN 1 UDTAB TABLET GT SCH (08:31)
[2022-03-05] MEDS: PROSOURCE / PROSTAT (PYXIS) 30 ML UDC PO SCH ×3 (08:32→18:16)
[2022-03-05] MEDS: HYDROCORTISONE SOD SUCCINATE 100 MG/2 ML VIAL IV SCH (08:32)
[2022-03-05] MEDS: CHLORHEXIDINE GLUCONATE 15 ML UDC MM SCH ×2 (08:32→18:19)
[2022-03-05] MEDS: HYDROGEL DRESSING 90 GM TUBE TP SCH (08:33)
[2022-03-05 08:45] LABS: BASOPHILS % (AUTO) 0.1 % (0.0-2.0); EOSINOPHILS % (AUTO) 0.4 % (0.0-6.0); HEMATOCRIT 23 % (33-45); HEMOGLOBIN 7.3 g/dL (11.5-14.8); LYMPHOCYTES % (AUTO) 8.6 % (20.0-44.0); MEAN CORPUSCULAR HGB CONC 32 g/dl (31.0-36.0); MEAN CORPUSCULAR VOLUME 87 fL (82-100); MONOCYTES # (AUTO) 0.4 K/uL (0.1-1.30); MONOCYTES % (AUTO) 3.2 % (2.0-12.0); NEUTROPHILS # (AUTO) 10.3 K/uL (1.8-8.9); NEUTROPHILS % (AUTO) 87.7 % (43.0-81.0); PLATELET COUNT (AUTO) 61 K/uL (150-450); RED BLOOD CELL COUNT(AUTO) 2.65 MIL/uL (4.0-5.2); WHITE BLOOD COUNT (AUTO) 11.8 K/uL (4.3-11.0)
[2022-03-05 08:47] LABS: HEMOGLOBIN 7.3 g/dL (11.5-14.8)
[2022-03-05] MEDS: COLISTIMETHATE SODIUM 150 MG CBA VIAL NEB SCH ×2 (08:58→21:16)
--- NOTE | 2022-03-05 09:41 | NUR ---
BORING MILL SET UP OPERATOR VERTICAL NOTE BLOOD PRESSURE RECHECKED AFTER MIDODRINE GIVEN ,90/40, WILL REPORT TO
[2022-03-05] MEDS ORDERED: Calcium Gluconate 1GM/10ML 9.3 MEQ in IV NS 0.9% 100 ML IV ONE (10:00)
--- NOTE | 2022-03-05 10:20 | NUR ---
TRAFFIC CONTROL FLAGGER NOTE DR PEPPER NOTIFIED THAT BP 80/3/ WILL GIVE MIDODRINE ORDERED, AWARE THAT HG 7.3 AND NA 148 TODAY
--- NOTE | 2022-03-05 10:27 | NUR ---
telemarketing representative note dr giron at bedside notified that bp 90/40 with new order given also per dr aguilar to start npo after midnight for peg placement,called mother, consent obtained
[2022-03-05] MEDS: ALBUMIN 25% 25 GM in PREMIX 1 EA IV SCH ×3 (10:34→22:05)
[2022-03-05] MEDS: FLUDROCORTISONE 0.1 MG TABLET PO SCH ×2 (12:23→18:19)
--- NOTE | 2022-03-05 14:28 | NUR ---
CIVILIAN TECHNICIAN NOTE ON BREATHING TX PER RT FIO2 CHANGED TO 60% ,SATURATION 95% ,CALLED TO DR HUGGINS SALES MANAGER [place]
[2022-03-05] MEDS: JEVITY 1.2 CAL 1,000 ML BOTTLE GT PRN (15:15)
--- NOTE | 2022-03-05 15:19 | NUR ---
CLOTH BLEACHING RANGE TENDER NOTE CALLED TO DR HUGGINS NOTIFIED THAT SATURATION 94% ON FIO2 60% WITH ORDER TO TRANSFER TO ICU ADD PEEP 5, ORDER CARRIED OUT
--- NOTE | 2022-03-05 15:50 | NUR ---
RN NOTES PATIENT GET TRANSFERRED FROM [facility] AT THIS TIME ON Dx OF HYPOXIA, PATIENT ON TRACHEA/VENT O2-95, BP 88/40, P-96, T-98.4F. RUNNING ALBUMIN PER MD ORDER. TOLERATING HGT FEEDING WELL, HUNG INTACT. COLOSTOMY BAG INTACT. KEEP HOB ELEVATED FOR ASPIRATION PRECAUTION. SISTER NEXT TO THE BED. CALL LIGHT WITHIN TO REACH. WILL FOLLOW UP.
[2022-03-05] MEDS: IV 1/2NS 1000 ML 1,000 ML IV PRN (15:55)
[2022-03-05] MEDS: IV NS 0.9% 250 ML IV PRN (16:18)
--- NOTE | 2022-03-05 16:23 | NUR ---
teletype operator note per dr hinson transferred to icu report given to haylee gonzalez , family at bedside
[2022-03-05 16:24] LABS: HEMOGLOBIN 6.1 g/dL (11.5-14.8)
--- NOTE | 2022-03-05 17:05 | NUR ---
RN NOTES GET HEMOGLOBIN, AND HEMATOCRIT LAB RESULT 6.10/[address] DONALDSON, AND GET NEW ORDER TWO UNITS OF BLOOD TRANSFUSION. ORDER TAKEN, AND CARRIED OUT. ALSO PATIENT SIGN CONSENT FOR PEG PLACEMENT TOMORROW, NPO MIDNIGHT. DUE MEDICATION ADMINISTERED VIA NGT INTACT.
--- NOTE | 2022-03-05 18:01 | NUR ---
RT Pt placed on CPAP per MD orders with settings as noted. Pt did not tolerate weaning order- respiratory distress and low sp02. Pt placed back on initial AC settings. Failed weaning reported to MD Loja.
--- NOTE | 2022-03-05 18:05 | NUR ---
Pt vent changes made per MD orders. Increased Fi02 to 60% and peep 5 due to low Sp02.Pt tolerating new settings. Will continue to monitor
[2022-03-05] MEDS: DAPTOMYCIN 500 MG in IV NS 0.9% 50 ML IV SCH (18:21)
--- NOTE | 2022-03-05 18:30 | NUR ---
RN NOTES PATIENT RESTING , NO ACUTE RESPIRATORY DISTRESS, TOLERATING FEEDING WELL, REFUSED TO BED REPOSTION. DUE MEDICATION ADMINISTERED. PATIENT NEED BLOOD TRANSFUSION, LAB AWARE OF WAITING TO BE READY TO CYLINDER BLOCK HOLE RELINER. ENDORSED ONCOMING NURSE FOLLOW PLAN OF CARE.
--- NOTE | 2022-03-05 21:00 | NUR ---
RT Notes FIO2 titrate from 60% to 50% due to SPO2 97%. Will cont to monitor.
--- NOTE | 2022-03-05 21:12 | NUR ---
ICU/VESSEL OPERATOR STOOL SOFTENER NOT GIVEN DUE TO PT HAVING COLOSTOMY.
[2022-03-06] VITALS (59 sets, daily range): BP systolic 102–135; BP diastolic 46–85
[2022-03-06] MEDS: ALBUTEROL HALF STRENGTH 1.25 MG/3 ML VIAL.NEB NEB SCH ×4 (01:31→20:14)
[2022-03-06] MEDS: IPRATROPIUM NEB FS 0.5 MG/2.5 ML AMPUL.NEB NEB SCH ×4 (01:31→20:14)
--- NOTE | 2022-03-06 04:10 | NUR ---
ICU/BUSINESS SERVICES VICE PRESIDENT PT WAS GIVEN MORPHINE 4MG IVP BY TRACK VEHICLE REPAIRER NURSE. PAIN IS RATED 10/10 TO SACRAL AREAS. PT WAS GIVEN PM CARE. CALL LIGHT WITHIN REACH.
[2022-03-06] MEDS: MORPHINE SULFATE INJ 4 MG/ML DISP.SYRIN IV PRN ×3 (04:21→20:03)
[2022-03-06] MEDS: ALBUMIN 25% 25 GM in PREMIX 1 EA IV SCH (04:32)
[2022-03-06 05:05] LABS: BASOPHILS % (AUTO) 0.1 % (0.0-2.0); CALCIUM, SERUM 6.9 mg/dL (8.5-10.1); CREATININE 0.8 mg/dL (0.6-1.3); EOSINOPHILS % (AUTO) 0.6 % (0.0-6.0); HEMATOCRIT 31 % (33-45); HEMOGLOBIN 10.3 g/dL (11.5-14.8); LYMPHOCYTES # (AUTO) 1.2 K/uL (0.8-4.8); LYMPHOCYTES % (AUTO) 11.5 % (20.0-44.0); MEAN CORPUSCULAR HGB CONC 34 g/dl (31.0-36.0); MEAN CORPUSCULAR VOLUME 86 fL (82-100); MONOCYTES # (AUTO) 0.3 K/uL (0.1-1.30); MONOCYTES % (AUTO) 3.1 % (2.0-12.0); NEUTROPHILS # (AUTO) 8.6 K/uL (1.8-8.9); NEUTROPHILS % (AUTO) 84.7 % (43.0-81.0); PLATELET COUNT (AUTO) 71 K/uL (150-450); POTASSIUM 3.5 mmol/L (3.5-5.1); RED BLOOD CELL COUNT(AUTO) 3.53 MIL/uL (4.0-5.2); WHITE BLOOD COUNT (AUTO) 10.2 K/uL (4.3-11.0)
[2022-03-06 05:11] LABS: ALBUMIN 2.5 g/dL (3.4-5.0); BILIRUBIN,TOTAL 0.6 mg/dL (0.2-1.0); TOTAL PROTEIN, SERUM 5.4 g/dL (6.4-8.2)
[2022-03-06] MEDS: MEROPENEM 500 MG in IV NS 0.9% 50 ML IV SCH ×3 (06:06→22:15)
[2022-03-06] MEDS: IV 1/2NS 1000 ML 1,000 ML IV PRN ×2 (06:08→17:43)
[2022-03-06 08:37] LABS: HEMOGLOBIN 9.1 g/dL (11.5-14.8)
--- NOTE | 2022-03-06 08:46 | NUR ---
DR. PAULA WITH NEW ORDER OF NPO EXCEPT MEDS VIA GT NOW.
[2022-03-06] MEDS: COLISTIMETHATE SODIUM 150 MG CBA VIAL NEB SCH ×3 (09:00→21:11)
[2022-03-06] MEDS: DOCUSATE SODIUM LIQ 100 MG/10 ML UDC GT SCH ×2 (09:14→21:00)
[2022-03-06] MEDS: CHLORHEXIDINE GLUCONATE 15 ML UDC MM SCH ×2 (09:15→17:00)
[2022-03-06] MEDS: MULTIVITAMINS,THERAGRAN 1 UDTAB TABLET GT SCH (09:15)
[2022-03-06] MEDS: PANTOPRAZOLE 40 MG/PACK PACK GT SCH (09:15)
[2022-03-06] MEDS: FLUCONAZOLE (100 MG) 100 MG TABLET PO SCH (09:15)
[2022-03-06] MEDS: ASCORBIC ACID 500 MG TABLET NG SCH (09:15)
[2022-03-06] MEDS: ARIPIPRAZOLE 2 MG TABLET NG SCH (09:16)
[2022-03-06] MEDS: MIDODRINE HCL (5MG) 5 MG TABLET NG SCH ×3 (09:16→17:00)
[2022-03-06] MEDS: FLUDROCORTISONE 0.1 MG TABLET PO SCH ×2 (09:17→17:00)
[2022-03-06] MEDS: HYDROCORTISONE SOD SUCCINATE 100 MG/2 ML VIAL IV SCH ×3 (09:17→22:14)
[2022-03-06] MEDS: GABAPENTIN 100 MG CAPSULE PO SCH ×2 (09:18→17:00)
[2022-03-06] MEDS: ZINC SULFATE 220 MG CAPSULE NG SCH (09:18)
[2022-03-06] MEDS: FOLIC ACID 1 MG TABLET PO SCH (09:22)
[2022-03-06] MEDS: PROSOURCE / PROSTAT (PYXIS) 30 ML UDC PO SCH ×3 (09:55→17:00)
[2022-03-06] MEDS: HYDROGEL DRESSING 90 GM TUBE TP SCH (09:56)
[2022-03-06] MEDS ORDERED: ANESTHESIA TRAY IN PYXIS 1 EA TRAY MC ONE (10:02)
--- NOTE | 2022-03-06 10:30 | NUR ---
OR STAFF ARRIVED FOR PEG PLACEMENT
--- NOTE | 2022-03-06 11:15 | NUR ---
PATIENT REMAINS STABLE; NO SSx ACUTE DISTRESS NOTED; S/P PEG PLACEMENT AND NEW ORDER TO RESUME GT FEEDING TOMORROW MORNING. WILL CONTINUE TO MONITOR PT.
--- NOTE | 2022-03-06 16:03 | NUR ---
SOC 341: DONTA receive call back from Mallory Velez tel: [phone] ext.[phone] for verbal report about alleged self neglect by patient. Per Mallory's request, DONTA faxed SOC 341 to [facility] fax: [phone] and [facility] . SW will be available as needed.
[2022-03-06 16:19] LABS: HEMOGLOBIN 9.6 g/dL (11.5-14.8)
[2022-03-06] MEDS: IV NS 0.9% 250 ML IV PRN (17:33)
[2022-03-06] MEDS: DAPTOMYCIN 500 MG in IV NS 0.9% 50 ML IV SCH (19:05)
--- NOTE | 2022-03-06 19:08 | NUR ---
BEDSIDE REPORT GIVEN TO QUENTIN FOR CONTINUITY OF CARE.
--- NOTE | 2022-03-06 20:10 | NUR ---
ICU/PROFESSOR OF RHETORIC PT REQUESTED MORPHINE 4MG IVP PRN FOR PAIN RATED 10/10 TO GENERALIZED AREAS OF HER BODY. CHARGE NURSE MADE AWARE OF THIS THEN GIVEN MEDICATION FOR PAIN. CALL LIGHT WITHIN REACH, WILL CONTINUE TO MONITOR THIS PT.
--- NOTE | 2022-03-06 22:09 | NUR ---
ICU/IRRIGATION FLUME LAYER PT HAS A COLOSTOMY, NO NEED FOR COLACE.
--- NOTE | 2022-03-06 22:30 | NUR ---
ICU/SUPERVISORY EXAMINER SCD ORDER WAS CANCELLED DUE TO THE FACT PT HAS LEG WOUND TO THE CALF WHICH HAS FULL THICKNESS LOSS.
[2022-03-07] VITALS (38 sets, daily range): BP systolic 82–110; BP diastolic 42–78
[2022-03-07] MEDS: MORPHINE SULFATE INJ 4 MG/ML DISP.SYRIN IV PRN ×2 (00:02→09:52)
--- NOTE | 2022-03-07 00:10 | NUR ---
ICU/WHALE FISHERMAN PT WAS GIVEN MORPHINE 4MG IVP BY PRODUCER ARBORIST MANAGER NURSE. PAIN IS RATED 10/10 TO SACRAL AREAS. PT WAS GIVEN PM CARE. CALL LIGHT WITHIN REACH. WILL MONITOR
[2022-03-07] MEDS: LORAZEPAM INJ 2 MG/ML VIAL IV PRN (01:22)
--- NOTE | 2022-03-07 01:30 | NUR ---
ICU/COUNTER INTELLIGENCE AGENT ATIVAN 0.5MG WAS GIVEN BY DOVETAIL MACHINE OPERATOR NURSE FOR AGITATION AND PT IS UNABLE TO SLEEP. CALL LIGHT WITHIN REACH WILL MONITOR THIS PT.
[2022-03-07] MEDS: ALBUTEROL HALF STRENGTH 1.25 MG/3 ML VIAL.NEB NEB SCH ×4 (01:48→20:09)
[2022-03-07] MEDS: IPRATROPIUM NEB FS 0.5 MG/2.5 ML AMPUL.NEB NEB SCH ×4 (01:48→20:09)
[2022-03-07 04:47] LABS: BASOPHILS % (AUTO) 0.1 % (0.0-2.0); HEMATOCRIT 34 % (33-45); HEMOGLOBIN 10.9 g/dL (11.5-14.8); LYMPHOCYTES # (AUTO) 0.5 K/uL (0.8-4.8); LYMPHOCYTES % (AUTO) 7.3 % (20.0-44.0); MEAN CORPUSCULAR HGB CONC 32 g/dl (31.0-36.0); MEAN CORPUSCULAR VOLUME 87 fL (82-100); MONOCYTES # (AUTO) 0.1 K/uL (0.1-1.30); MONOCYTES % (AUTO) 1.5 % (2.0-12.0); NEUTROPHILS # (AUTO) 5.6 K/uL (1.8-8.9); NEUTROPHILS % (AUTO) 91.1 % (43.0-81.0); PLATELET COUNT (AUTO) 68 K/uL (150-450); RED BLOOD CELL COUNT(AUTO) 3.86 MIL/uL (4.0-5.2); WHITE BLOOD COUNT (AUTO) 6.1 K/uL (4.3-11.0)
--- NOTE | 2022-03-07 05:00 | NUR ---
end of shift resp note pt remains on vent on previous settings. hr and rr stable at this time. Addendum: 03/07/22 at 0618 by LYNETTE ELLISON RT Amended: Links added.
[2022-03-07 05:20] LABS: ALBUMIN 2.3 g/dL (3.4-5.0); BILIRUBIN,TOTAL 0.5 mg/dL (0.2-1.0); CALCIUM, SERUM 7.4 mg/dL (8.5-10.1); CREATININE 0.8 mg/dL (0.6-1.3); POTASSIUM 3.8 mmol/L (3.5-5.1); TOTAL PROTEIN, SERUM 5.4 g/dL (6.4-8.2)
[2022-03-07] MEDS: HYDROCORTISONE SOD SUCCINATE 100 MG/2 ML VIAL IV SCH ×3 (05:57→20:22)
[2022-03-07] MEDS: MEROPENEM 500 MG in IV NS 0.9% 50 ML IV SCH ×3 (05:58→23:05)
[2022-03-07] MEDS: IV 1/2NS 1000 ML 1,000 ML IV PRN ×2 (05:58→20:32)
[2022-03-07] MEDS: JEVITY 1.2 CAL 1,000 ML BOTTLE GT PRN (06:06)
--- NOTE | 2022-03-07 06:10 | NUR ---
ICU/SPECIAL EDUCATION PARAPROFESSIONAL G/TUBE FEEDING STARTED AT 20ML FOR A GOAL OF 50ML TO THE NEW G/TUBE SITE. NOTED SOME BLEEDING AROUND G/TUBE AREA.
--- NOTE | 2022-03-07 08:00 | NUR ---
RN NOTES RECEIVED PATIENT TRACHEA VENT DEPENDENT, NO ACUTE RESPIRATORY DISTRESS. RUNNING JEVITY @ 25 ML/HR GOAL IS INCREASE @50 ON GT INTACT. PATIENT TOTAL CARE, FUNCTION QUADRIPLEGIC, MULTIPLE WOUNDS. DUE MEDICATION ADMINISTERED, HUNG INTACT. ASSIST TURN AND REPOSTION Q 2 HR. INFUSING 1/2 NS @ 75ML/HR INTACT. WILL FOLLOW UP.
[2022-03-07] MEDS: ZINC SULFATE 220 MG CAPSULE NG SCH (09:07)
[2022-03-07] MEDS: FOLIC ACID 1 MG TABLET PO SCH (09:07)
[2022-03-07] MEDS: MULTIVITAMINS,THERAGRAN 1 UDTAB TABLET GT SCH (09:07)
[2022-03-07] MEDS: ARIPIPRAZOLE 2 MG TABLET NG SCH (09:08)
[2022-03-07] MEDS: GABAPENTIN 100 MG CAPSULE PO SCH ×2 (09:08→17:27)
[2022-03-07] MEDS: ASCORBIC ACID 500 MG TABLET NG SCH (09:08)
[2022-03-07] MEDS: FLUCONAZOLE (100 MG) 100 MG TABLET PO SCH (09:09)
[2022-03-07] MEDS: FLUDROCORTISONE 0.1 MG TABLET PO SCH ×2 (09:09→17:27)
[2022-03-07] MEDS: CHLORHEXIDINE GLUCONATE 15 ML UDC MM SCH ×2 (09:09→17:26)
[2022-03-07] MEDS: PANTOPRAZOLE 40 MG/PACK PACK GT SCH (09:39)
[2022-03-07] MEDS: DOCUSATE SODIUM LIQ 100 MG/10 ML UDC GT SCH ×2 (09:39→20:22)
[2022-03-07] MEDS: MIDODRINE HCL (5MG) 5 MG TABLET NG SCH ×3 (09:40→17:26)
[2022-03-07] MEDS: HYDROGEL DRESSING 90 GM TUBE TP SCH (09:41)
[2022-03-07] MEDS: PROSOURCE / PROSTAT (PYXIS) 30 ML UDC PO SCH ×3 (09:42→17:27)
--- NOTE | 2022-03-07 09:52 | NUR ---
rn notes administered morphine sulfate 4 mg/ml iv push for pain 04/26 per patient request, bp 92/52, p-53, r-18. will follow up.
[2022-03-07] MEDS: COLISTIMETHATE SODIUM 150 MG CBA VIAL NEB SCH ×3 (09:53→21:11)
--- NOTE | 2022-03-07 13:00 | NUR ---
RN NOTES PATIENT STABLE PER HOSPITALIST WILL DOWNGRADE TO THE TELE UNIT.
--- NOTE | 2022-03-07 18:45 | NUR ---
RN NOTES PM CARE DONE, VSS, WILL TRANSFER PATIENT TO THE TELE UNITS. ESCORTED PATIENT TO THE ONCOMING RN FOLLOW PLAN OF CARE.
--- NOTE | 2022-03-07 19:30 | NUR ---
[facility] RN NOTES RECEIVED PATIENT TRANSFERRED FROM ICU ACCOMPANIED BY ICU NURSE, ON TRACHEA VENT DEPENDENT, NO ACUTE RESPIRATORY DISTRESS. RUNNING JEVITY AT 50 ML/HR RUNNING WELL. PATIENT TOTAL CARE, FUNCTION QUADRIPLEGIC, MULTIPLE WOUNDS. WITH HUNG CATHETER IN PLACED, WITH IV ACCESS ON DORETHA PICCLINE INFUSING 1/2 NS @ 75ML/HR INFUSING WELL. CALL LIGHT WITHIN REACH, BED IN LOWEST AND LOCKED POSITION. V/S TAKEN AT 93/29, 98.0, 22, 67 BPM, 99%. WILL CONTINUE TO MONITOR.
[2022-03-08] VITALS: BP 94/57
[2022-03-08] MEDS: IPRATROPIUM NEB FS 0.5 MG/2.5 ML AMPUL.NEB NEB SCH ×4 (02:39→20:11)
[2022-03-08] MEDS: ALBUTEROL HALF STRENGTH 1.25 MG/3 ML VIAL.NEB NEB SCH ×4 (02:39→20:11)
[2022-03-08 04:00] VITALS: BP 95/47
[2022-03-08] MEDS: HYDROCORTISONE SOD SUCCINATE 100 MG/2 ML VIAL IV SCH ×3 (04:33→20:47)
[2022-03-08] MEDS: MEROPENEM 500 MG in IV NS 0.9% 50 ML IV SCH ×3 (06:05→23:08)
[2022-03-08] MEDS: JEVITY 1.2 CAL 1,000 ML BOTTLE GT PRN (06:23)
--- NOTE | 2022-03-08 06:52 | NUR ---
[facility] RN CLOSING NOTES PATIENT REMAINS ON BED, AWAKE, ALERT AND ORIENTED X3, ON TRACHEA VENT DEPENDENT, NO ACUTE RESPIRATORY DISTRESS. RUNNING JEVITY AT 50 ML/HR RUNNING WELL. PATIENT TOTAL CARE, FUNCTION QUADRIPLEGIC, MULTIPLE WOUNDS. WITH HUNG CATHETER IN PLACED, WITH IV ACCESS ON DORETHA PICCLINE INFUSING 1/2 NS @ 75ML/HR INFUSING WELL. ALL DUE MEDS GIVEN, KEPT DRY AND CLEAN, WOUND TX DONE, CALL LIGHT WITHIN REACH, BED IN LOWEST AND LOCKED POSITION. V/S TAKEN AND RECORDED. WILL CONTINUE TO MONITOR.
[2022-03-08 07:09] LABS: BASOPHILS % (AUTO) 0.1 % (0.0-2.0); HEMATOCRIT 28 % (33-45); HEMOGLOBIN 9.5 g/dL (11.5-14.8); LYMPHOCYTES # (AUTO) 0.3 K/uL (0.8-4.8); LYMPHOCYTES % (AUTO) 2.6 % (20.0-44.0); MEAN CORPUSCULAR HGB CONC 34 g/dl (31.0-36.0); MEAN CORPUSCULAR VOLUME 87 fL (82-100); MONOCYTES # (AUTO) 0.2 K/uL (0.1-1.30); MONOCYTES % (AUTO) 1.4 % (2.0-12.0); NEUTROPHILS % (AUTO) 95.9 % (43.0-81.0); PLATELET COUNT (AUTO) 80 K/uL (150-450); RED BLOOD CELL COUNT(AUTO) 3.21 MIL/uL (4.0-5.2); WHITE BLOOD COUNT (AUTO) 10.4 K/uL (4.3-11.0)
--- NOTE | 2022-03-08 07:30 | NUR ---
[facility] RN OPENING NOTE PATIENT IS IN BED, AWAKE, A&O X 3. WITH TRACHEOSTOMY TO VENTILATOR WITH THE FOLLOWING SETTINGS: AC MODE, FIO2 AT 40%, TV 425, RR 22, PEEP 5. OXYGEN SATURATION AT 95%. SINUS RHYTHM AT 97 BPM ON CLINICAL TRIAL COORDINATOR. RHONCHI UPON AUSCULTATION. NOT IN ANY FORM OF DISTRESS. WITH PEG TUBE INFUSING WITH JEVITY 1.2 AT 50 CC/HR, PEG INSERTION SITE CLEAN AND COVERED WITH DRY DRESSING. WITH LEFT UPPER ARM PICC LINE INTACT AND PATENT AND INFUSING WITH 1/2 NS AT 75 ML/HR. WITH HUNG CATHETER ATTACHED TO URINE BAG DRAINING TO CLEAR YELLOW URINE.BED IS LOCKED IN LOWEST POSITION, 3 SIDE RAILS UP, CALL LIGHT WITHIN REACH. WILL CONTINUE TO MONITOR THROUGHOUT SHIFT.
[2022-03-08 07:59] LABS: ALBUMIN 1.6 g/dL (3.4-5.0); BILIRUBIN,TOTAL 0.3 mg/dL (0.2-1.0); CALCIUM, SERUM 6.2 mg/dL (8.5-10.1); CREATININE 0.8 mg/dL (0.6-1.3); MAGNESIUM 1.4 mg/dL (1.8-2.4); PHOSPHORUS 3.5 mg/dL (2.5-4.9); POTASSIUM 3.5 mmol/L (3.5-5.1); TOTAL PROTEIN, SERUM 4.2 g/dL (6.4-8.2)
[2022-03-08 08:00] VITALS: BP 100/48
[2022-03-08] MEDS: CHLORHEXIDINE GLUCONATE 15 ML UDC MM SCH ×2 (08:05→16:41)
[2022-03-08] MEDS: FLUCONAZOLE (100 MG) 100 MG TABLET PO SCH (08:06)
[2022-03-08] MEDS: ACETAMINOPHEN 650 MG/20.3 ML UDC NG PRN (08:06)
[2022-03-08] MEDS: MULTIVITAMINS,THERAGRAN 1 UDTAB TABLET GT SCH (08:06)
[2022-03-08] MEDS: ASCORBIC ACID 500 MG TABLET NG SCH (08:06)
[2022-03-08] MEDS: DOCUSATE SODIUM LIQ 100 MG/10 ML UDC GT SCH ×2 (08:06→20:47)
[2022-03-08] MEDS: ARIPIPRAZOLE 2 MG TABLET NG SCH (08:06)
[2022-03-08] MEDS: MIDODRINE HCL (5MG) 5 MG TABLET NG SCH ×4 (08:07→16:42)
[2022-03-08] MEDS: ZINC SULFATE 220 MG CAPSULE NG SCH (08:07)
[2022-03-08] MEDS: PANTOPRAZOLE 40 MG/PACK PACK GT SCH (08:07)
[2022-03-08] MEDS: FLUDROCORTISONE 0.1 MG TABLET PO SCH ×2 (08:07→16:42)
[2022-03-08] MEDS: FOLIC ACID 1 MG TABLET PO SCH (08:11)
[2022-03-08] MEDS: GABAPENTIN 100 MG CAPSULE PO SCH ×2 (08:11→16:41)
[2022-03-08] MEDS: COLISTIMETHATE SODIUM 150 MG CBA VIAL NEB SCH ×2 (08:58→22:26)
[2022-03-08] MEDS: PROSOURCE / PROSTAT (PYXIS) 30 ML UDC PO SCH ×3 (09:18→16:43)
[2022-03-08] MEDS: HYDROGEL DRESSING 90 GM TUBE TP SCH (09:19)
[2022-03-08] MEDS: Magnesium 1GM/D5W 100ML PREMIX 100 ML IV SCH ×4 (11:26→14:52)
[2022-03-08 12:00] VITALS: BP 120/62
[2022-03-08 12:30] LABS: BAND % (MANUAL) 2 % (0.0-5.0); LYMPHOCYTES % (MANUAL) 3 % (16-48); MONOCYTES % (MANUAL) 2 % (0-11.0); NEUTROPHILS % (MANUAL) 93 (42-76)
--- NOTE | 2022-03-08 12:45 | NUR ---
RN NOTE MIDODRINE NOT GIVEN DUE TO BLOOD PRESSURE AT 120/67.
[2022-03-08] MEDS: MORPHINE SULFATE INJ 4 MG/ML DISP.SYRIN IV PRN ×3 (14:10→23:09)
[2022-03-08] MEDS: IV 1/2NS 1000 ML 1,000 ML IV PRN (14:59)
[2022-03-08 16:05] VITALS: BP 112/56
--- NOTE | 2022-03-08 18:31 | NUR ---
RN CLOSING NOTE PATIENT IS IN BED AWAKE, ALERT ORIENTED X 3. PATIENT HAS BEEN DOWNGRADED TO TELEMETRY MONITORING. PATIENT HAS BEEN STABLE THROUGHOUT SHIFT, WITH 02 SATURATION AT 98%. STILL WITH TRACHEOSTOMY TO MECHANICAL VENTILATOR. SINUS RHYTHM ON TELEMETRY MONITORING. PEG INTACT AND PATENT AND INFUSING WITH JEVITY 1.2 AT 50 ML/HR. LEFT UPPER ARM IV PICC LINE INTACT AND PATENT. COLOSTOMY BAG IN PLACE AND EMPTIED NEEDED. HUNG CATHETER IN PLACE. ALL HOSPITAL PRECAUTIONS IN PLACE. BED IS LOCKED IN LOWEST POSITION, 3 SIDE RAILS UP, CALL LIGHT WITHIN REACH. WILL ENDORSE TO KINDERGARTNER NURSE.
[2022-03-08 20:00] VITALS: BP 137/76
--- NOTE | 2022-03-08 20:07 | NUR ---
RN NOTE RECEIVED PT AWAKE. ALERT, NOT IN ANY DISTRESS, WITH TRACH CONNECTED TO VENT, O2 SAT AT 98%. DENIES PAIN AT THIS TIME. GT PATENT AND IN PLACE, NOTED WITH 170ML RESIDUAL, HELD GT FEEDING AT THIS TIME. ON 09/18 NS AT 75ML/HR, DORETHA PICC LINE INTACT. HUNG CATH IN PLACE, DRAINING CLEAR YELLOW URINE OUTPUT. WILL CONTINUE TO MONITOR.
--- NOTE | 2022-03-08 23:00 | NUR ---
RN NOTE STILL NOTED WITH 80ML GT RESIDUAL. GT FEEDING KEPT ON HOLD. WILL CONTINUE RECHECKING
[2022-03-09] VITALS: BP 131/69
[2022-03-09] MEDS: ALBUTEROL HALF STRENGTH 1.25 MG/3 ML VIAL.NEB NEB SCH ×4 (01:04→19:29)
[2022-03-09] MEDS: IPRATROPIUM NEB FS 0.5 MG/2.5 ML AMPUL.NEB NEB SCH ×4 (01:04→19:29)
--- NOTE | 2022-03-09 01:04 | NUR ---
RN NOTE GT FEEDING RESTARTED. KEPT HOB ELEVATED.
[2022-03-09] MEDS: MORPHINE SULFATE INJ 4 MG/ML DISP.SYRIN IV PRN ×3 (03:55→16:49)
[2022-03-09 04:00] VITALS: BP 125/69
[2022-03-09] MEDS: HYDROCORTISONE SOD SUCCINATE 100 MG/2 ML VIAL IV SCH ×3 (04:50→21:42)
--- NOTE | 2022-03-09 05:29 | NUR ---
RN NOTE PT NOTED WITH GT RESIDUALS OF 12OML. NOTIFIED IMMUNOLOGY SPECIALIST MAAME, WITH NEW ORDER OF REGLAN AND TO HOLD GT FEEDING FOR 1HOUR. WILL CONTINUE TO MONITOR.
[2022-03-09] MEDS: MEROPENEM 500 MG in IV NS 0.9% 50 ML IV SCH (06:12)
[2022-03-09] MEDS: METOCLOPRAMIDE HCL 10 MG/2 ML VIAL IV SCH ×3 (06:12→16:49)
[2022-03-09] MEDS: IV 1/2NS 1000 ML 1,000 ML IV PRN (06:12)
--- NOTE | 2022-03-09 06:48 | NUR ---
RN NOTE PT SLEEPING AROUSES EASILY. NOT IN ANY DISTRESS, TOLERATES VENT SETTINGS. SUCTIONED NEEDED. 0ML GT RESIDUALS, RESTARTED GTFEEDING OF JEVITY AT 20ML/HR. REGLAN IV GIVEN ORDERED. PT REMAIN AFEBRILE. PAIN RELIEVED BY MORPHINE. CONTINUE ON IVFLUIDS 1/2 NS AT 75ML/HR, INFUSING WELL. DRAINED BM FROM COLOSTOMY BAG. WILL ENDORSE TO NEXT SHIFT NURSE FOR JANES.
[2022-03-09 06:49] LABS: BASOPHILS % (AUTO) 0.1 % (0.0-2.0); HEMATOCRIT 31 % (33-45); LYMPHOCYTES # (AUTO) 0.6 K/uL (0.8-4.8); LYMPHOCYTES % (AUTO) 5.2 % (20.0-44.0); MEAN CORPUSCULAR HGB CONC 32 g/dl (31.0-36.0); MEAN CORPUSCULAR VOLUME 88 fL (82-100); MONOCYTES # (AUTO) 0.2 K/uL (0.1-1.30); MONOCYTES % (AUTO) 1.6 % (2.0-12.0); NEUTROPHILS # (AUTO) 10.6 K/uL (1.8-8.9); NEUTROPHILS % (AUTO) 93.1 % (43.0-81.0); PLATELET COUNT (AUTO) 103 K/uL (150-450); RED BLOOD CELL COUNT(AUTO) 3.52 MIL/uL (4.0-5.2); WHITE BLOOD COUNT (AUTO) 11.4 K/uL (4.3-11.0)
[2022-03-09 07:05] LABS: CALCIUM, SERUM 7.4 mg/dL (8.5-10.1); CREATININE 0.9 mg/dL (0.6-1.3); MAGNESIUM 2.2 mg/dL (1.8-2.4); PHOSPHORUS 3.8 mg/dL (2.5-4.9); POTASSIUM 3.7 mmol/L (3.5-5.1)
--- NOTE | 2022-03-09 07:30 | NUR ---
SANDING MACHINE OPERATOR AM NOTES PATIENT IS IN BED, AWAKE, A&O X 3. PORTEX 8 TRACH TO MECHANICAL VENT WITH SETTINGS ORDERED: AC 22, FIO2 40%, TV 425, 22, PEEP 5. OXYGEN SATURATION AT 100%. BREATHING EVEN AND UNLABORED. SINUS RHYTHM AT 63 BPM ON BOOKKEEPING TEACHER. NO SIGN OF CHEST PAIN, WITH LEFT UPPER ARM PICC LINE INTACT AND PATENT AND INFUSING WITH 1/2 NS AT 75 ML/HR. SITE CLEAR. PEG TUBE INFUSING WITH JEVITY 1.2 AT 20 CC/HR, CHECKED FOR PLACEMENT, 0 RESIDUAL. WITH HUNG CATHETER IN PLACE DRAINING VIA GRAVITY. COLOSTOMY BAG IN PLACE WITH SEMIFORMED BROWNISH STOOL. POC DISCUSSED, VERBALIZED UNDERSTANDING. BED IS LOCKED IN LOWEST POSITION, 3 SIDE RAILS UP, CALL LIGHT WITHIN REACH. WILL CONTINUE TO MONITOR THROUGHOUT SHIFT. SEE NURSING FLOWSHEET FOR SKIN ISSUES. WILL PERFORM PRESCRIBED WOUND TREATMENT IN A FEW. WILL TURN AND REPOSITION Q HOURS.
[2022-03-09 08:00] VITALS: BP 131/70
[2022-03-09] MEDS: COLISTIMETHATE SODIUM 150 MG CBA VIAL NEB SCH (08:51)
[2022-03-09] MEDS: MULTIVITAMINS,THERAGRAN 1 UDTAB TABLET GT SCH (09:03)
[2022-03-09] MEDS: FLUCONAZOLE (100 MG) 100 MG TABLET PO SCH (09:03)
[2022-03-09] MEDS: ASCORBIC ACID 500 MG TABLET NG SCH (09:03)
[2022-03-09] MEDS: FOLIC ACID 1 MG TABLET PO SCH (09:03)
[2022-03-09] MEDS: GABAPENTIN 100 MG CAPSULE PO SCH ×2 (09:03→16:46)
[2022-03-09] MEDS: ZINC SULFATE 220 MG CAPSULE NG SCH (09:03)
[2022-03-09] MEDS: FLUDROCORTISONE 0.1 MG TABLET PO SCH ×2 (09:03→16:46)
[2022-03-09] MEDS: PANTOPRAZOLE 40 MG/PACK PACK GT SCH (09:03)
[2022-03-09] MEDS: CHLORHEXIDINE GLUCONATE 15 ML UDC MM SCH ×2 (09:03→16:46)
[2022-03-09] MEDS: MIDODRINE HCL (5MG) 5 MG TABLET NG SCH ×3 (09:05→16:47)
[2022-03-09] MEDS: HYDROGEL DRESSING 90 GM TUBE TP SCH (09:07)
[2022-03-09] MEDS: DOCUSATE SODIUM LIQ 100 MG/10 ML UDC GT SCH ×2 (09:07→21:41)
[2022-03-09] MEDS: PROSOURCE / PROSTAT (PYXIS) 30 ML UDC PO SCH ×3 (09:08→16:48)
--- NOTE | 2022-03-09 09:30 | NUR ---
RN NOTES DUE MEDS GIVEN
--- NOTE | 2022-03-09 09:45 | NUR ---
RN NOTES DR. HUGGINS AT BEDSIDE EARLIER. DR. KATZ AT BEDSIDE JAYY. BOTH MD AWARE, PATIENT REFUSE TO HAVE CXR DONE
--- NOTE | 2022-03-09 09:45 | NUR ---
RN NOTES PER DR. HUGGINS, VENT CHANGE: SIMV RSV 15 RATE 4 TV 40 P 5. ABG 1 HOURS POST VENT CHANGE TITRATE SPO2 > 94% Addendum: 03/09/22 at 1841 by SOFIE VARGHESE RN CORRECTION: ORDER FOR 03/10/2022.
[2022-03-09 12:00] VITALS: BP 126/73
[2022-03-09 16:00] VITALS: BP 138/82
[2022-03-09] MEDS: JEVITY 1.2 CAL 1,000 ML BOTTLE GT PRN (17:04)
--- NOTE | 2022-03-09 18:42 | NUR ---
SKIVER HAND CLOSING NOTES PATIENT IS IN BED, AWAKE, A&O X 3. PORTEX 8 TRACH TO MECHANICAL VENT WITH SETTINGS ORDERED: AC 22, FIO2 40%, TV 425, 22, PEEP 5. OXYGEN SATURATION AT 99%. BREATHING EVEN AND UNLABORED. SINUS RHYTHM AT 59 BPM ON ACADEMIC SUCCESS COORDINATOR. NO SIGN OF CHEST PAIN, WITH LEFT UPPER ARM PICC LINE INTACT AND PATENT AND INFUSING WITH 1/2 NS AT 75 ML/HR. SITE CLEAR. PEG TUBE INFUSING WITH JEVITY 1.2 AT CHANGED TO 30 CC/HR, CHECKED FOR PLACEMENT, 0 RESIDUAL. WITH HUNG CATHETER IN PLACE DRAINING VIA GRAVITY. COLOSTOMY BAG IN PLACE WITH SEMIFORMED BROWNISH STOOL. POC DISCUSSED, VERBALIZED UNDERSTANDING. BED IS LOCKED IN LOWEST POSITION, 3 SIDE RAILS UP, CALL LIGHT WITHIN REACH. WILL ENDORSE TO NEXT SHIFT FOR JANES PATIENT REFUSED PRESCRIBED WOUND TREATMENT, REFUSED TO BE TURNED AND REPOSITIONED.
[2022-03-09 20:00] VITALS: BP 148/82
--- NOTE | 2022-03-09 20:00 | NUR ---
RN NOTE RECEIVED PT AWAKE. ALERT, NOT IN ANY DISTRESS, WITH TRACH CONNECTED TO VENT, O2 SAT AT 99%. DENIES PAIN AT THIS TIME. GT PATENT AND IN PLACE, GT FEEDING OF JEVITY 1.2 AT 30ML/HR. WITH 30ML RESIDUAL, KEPT HOB ELEVATED. DORETHA PICC LINE INTACT. HUNG CATH IN PLACE, DRAINING CLEAR YELLOW URINE OUTPUT. WILL CONTINUE TO MONITOR.
--- NOTE | 2022-03-09 21:00 | NUR ---
RN NOTE NOTED WITH LOW BODY TEMP. PT AWAKE, ABLE TO COMMUNICATE. NOT IN ANY DISTRESS. APPLIED MALACHI BROWN. WILL CONTINUE TO MONITOR
[2022-03-10] VITALS: BP 135/75
[2022-03-10] MEDS: IV 1/2NS 1000 ML 1,000 ML IV PRN ×2 (00:10→13:01)
[2022-03-10] MEDS: METOCLOPRAMIDE HCL 10 MG/2 ML VIAL IV SCH ×5 (00:10→23:42)
--- NOTE | 2022-03-10 00:10 | NUR ---
RN NOTE NO GT RESIDUALS NOTED, INCREASED GT RATE TO 40ML/HR. REGLAN GIVEN ORDERED.
[2022-03-10] MEDS: IPRATROPIUM NEB FS 0.5 MG/2.5 ML AMPUL.NEB NEB SCH ×4 (02:14→19:39)
[2022-03-10] MEDS: ALBUTEROL HALF STRENGTH 1.25 MG/3 ML VIAL.NEB NEB SCH ×4 (02:14→19:39)
[2022-03-10] MEDS: MORPHINE SULFATE INJ 4 MG/ML DISP.SYRIN IV PRN ×5 (02:34→21:10)
[2022-03-10 04:00] VITALS: BP 114/62
--- NOTE | 2022-03-10 04:00 | NUR ---
RN NOTE NOTED HUNG CATH LEAKING, NEW HUNG CATH INSERTED, DRAINING CLEAR URINE OUTPUT. PT TOLERATING FEEDING, INCREASED GT FEEDING RATE TO 50ML/HR. GOAL RATE. KEPT HOB ELEVATED.
[2022-03-10] MEDS: HYDROCORTISONE SOD SUCCINATE 100 MG/2 ML VIAL IV SCH ×3 (05:16→21:08)
[2022-03-10 06:38] LABS: CALCIUM, SERUM 7.6 mg/dL (8.5-10.1); CREATININE 0.8 mg/dL (0.6-1.3); PHOSPHORUS 4.2 mg/dL (2.5-4.9); POTASSIUM 3.7 mmol/L (3.5-5.1)
[2022-03-10 06:45] LABS: BASOPHILS % (AUTO) 0.1 % (0.0-2.0); HEMATOCRIT 31 % (33-45); HEMOGLOBIN 9.9 g/dL (11.5-14.8); LYMPHOCYTES # (AUTO) 0.4 K/uL (0.8-4.8); LYMPHOCYTES % (AUTO) 3.6 % (20.0-44.0); MEAN CORPUSCULAR HGB CONC 33 g/dl (31.0-36.0); MEAN CORPUSCULAR VOLUME 87 fL (82-100); MONOCYTES # (AUTO) 0.2 K/uL (0.1-1.30); MONOCYTES % (AUTO) 1.8 % (2.0-12.0); NEUTROPHILS # (AUTO) 11.4 K/uL (1.8-8.9); NEUTROPHILS % (AUTO) 94.5 % (43.0-81.0); PLATELET COUNT (AUTO) 108 K/uL (150-450); RED BLOOD CELL COUNT(AUTO) 3.49 MIL/uL (4.0-5.2)
--- NOTE | 2022-03-10 06:45 | NUR ---
RN NOTE PT AWAKE, ABLE TO MAKE NEEDS KNOWN. CONTINUE ON VENT SETTINGS, TOLERATES WELL. NO SIGNS OF DISTRESS NOTED. PT CONTINUE WITH MALACHI AVELINAGGER, LATEST BODY TEMP AT 97.1. CONTINUE GT FEEDING OF JEVITY AT 50ML/HR WITH MINIMAL RESIDUAL, ABOUT 10ML. KEPT HOB ELEVATED. ON IVFLUIDS OF 1/2 NS AT 75ML/HR. CHANGES WOUND DRESSINGS, NO S/SX OF INFECTION NOTED. ON BHARAT MATTRESS. WILL ENDORSE TO NEXT SHIFT NURSE FOR JANES.
--- NOTE | 2022-03-10 07:25 | NUR ---
RN OPENING NOTE PT AWAKE, ABLE TO MAKE NEEDS KNOWN. CONTINUE ON VENT SETTINGS, TOLERATES WELL. NO SIGNS OF DISTRESS NOTED. PT CONTINUE WITH MALACHI HUGGER. CONTINUE GT FEEDING OF JEVITY AT 50ML/HR WITH MINIMAL RESIDUAL, ABOUT 10ML. HOB ELEVATED. ON IV FLUIDS OF 1/2 NS AT 75ML/HR. ALL SAFETY MEASURES IN PLACE, WILL CONT TO MONITOR THROUGHOUT SHIFT.
[2022-03-10 08:00] VITALS: BP 117/62
[2022-03-10] MEDS: ASCORBIC ACID 500 MG TABLET NG SCH (08:11)
[2022-03-10] MEDS: CHLORHEXIDINE GLUCONATE 15 ML UDC MM SCH ×2 (08:11→16:22)
[2022-03-10] MEDS: MULTIVITAMINS,THERAGRAN 1 UDTAB TABLET GT SCH (08:11)
[2022-03-10] MEDS: FLUDROCORTISONE 0.1 MG TABLET PO SCH ×2 (08:11→16:22)
[2022-03-10] MEDS: DOCUSATE SODIUM LIQ 100 MG/10 ML UDC GT SCH ×2 (08:11→21:09)
[2022-03-10] MEDS: ZINC SULFATE 220 MG CAPSULE NG SCH (08:11)
[2022-03-10] MEDS: FLUCONAZOLE (100 MG) 100 MG TABLET PO SCH (08:12)
[2022-03-10] MEDS: FOLIC ACID 1 MG TABLET PO SCH (08:12)
[2022-03-10] MEDS: HYDROGEL DRESSING 90 GM TUBE TP SCH (08:12)
[2022-03-10] MEDS: PANTOPRAZOLE 40 MG/PACK PACK GT SCH (08:12)
[2022-03-10] MEDS: PROSOURCE / PROSTAT (PYXIS) 30 ML UDC PO SCH ×3 (08:12→16:23)
[2022-03-10] MEDS: GABAPENTIN 100 MG CAPSULE PO SCH ×2 (08:12→16:22)
[2022-03-10] MEDS: MIDODRINE HCL (5MG) 5 MG TABLET NG SCH ×3 (08:19→16:22)
--- NOTE | 2022-03-10 08:43 | NUR ---
RT NOTE Attempted to placed pt on SIMV settings. Pt stated she became to feel SOB, pt had increaed work of breathing and became tachycardic. Pt placed back on previous settings. Charge nurse Noy notified and aware. Addendum: 03/10/22 at 0846 by MITCHEL PETERSON RT Amended: Links added. Addendum: 03/10/22 at 0847 by MITCHEL PETERSON RT Per order, placed pt on SIMV settings. Addendum: 03/10/22 at 0900 by MITCHEL PETERSON RT DISREGARD PREVIOUS TWO NOTES. CORRECT NOTE RT NOTE Attempted to place pt on SIMV settings, per MD order. Pt stated she became to feel SOB, pt had increased work of breathing and became tachycardic. Pt placed back on previous settings. Charge Nurse Noy notified and aware.
[2022-03-10 12:00] VITALS: BP 118/62
[2022-03-10 16:00] VITALS: BP 130/71
--- NOTE | 2022-03-10 18:47 | NUR ---
RN CLOSING NOTE PT AWAKE, ABLE TO MAKE NEEDS KNOWN. CONTINUE ON VENT SETTINGS, TOLERATES WELL. NO SIGNS OF DISTRESS NOTED. GT FEEDING OF JEVITY 1.2 AT 50ML/HR WITH MINIMAL RESIDUAL. HOB ELEVATED. IV ACCESS AT [facility] PIC. ON IV FLUIDS OF 1/2 NS AT 75ML/HR. ALL SAFETY MEASURES IN PLACE, WILL CONT TO MONITOR THROUGHOUT SHIFT.
--- NOTE | 2022-03-10 19:10 | NUR ---
RN OPENING NOTES PATIENT RECEIVED ON BED, AWAKE, ALERT ORIENTED X 3. ON MECHANICAL VENTILATION, SETTINGS TOLERATED WELL. RESPIRATORY EVEN AND UNLABORED, NO SOB NOTED. NO S/S OF DISTRESS NOTED. NOTED WITH DORETHA PICC LINE FLUSHED WITH NS. NO S/S OF INFILTRATION NOTED AT SITE. RUNNING WITH 1/2 NS @ 75 ML/HR. PEG TUBE PATENT AND INTACT, VERIFIED PLACEMENT BY AUSCULTATION, NO RESIDUAL UPON ASPIRATION, RUNNING WITH JEVITY 1.2 @ 50 ML/HR. HEAD OF BED KEPT ELEVATED. HUNG CATHETER PATENT INTACT, DRAINING WITH CLEAR YELLOW URINE VIA GRAVITY. ALL SAFETY PRECAUTION PROVIDED, BED IN LOWEST POSITION. LOCKED. CONTINUE TO MONITOR
[2022-03-10 20:00] VITALS: BP 130/71
[2022-03-11] VITALS (7 sets, daily range): BP systolic 131–164; BP diastolic 75–91
[2022-03-11] MEDS: JEVITY 1.2 CAL 1,000 ML BOTTLE GT PRN (00:56)
[2022-03-11] MEDS: ALBUTEROL HALF STRENGTH 1.25 MG/3 ML VIAL.NEB NEB SCH ×4 (01:32→19:32)
[2022-03-11] MEDS: IPRATROPIUM NEB FS 0.5 MG/2.5 ML AMPUL.NEB NEB SCH ×4 (01:32→19:32)
[2022-03-11] MEDS: MORPHINE SULFATE INJ 4 MG/ML DISP.SYRIN IV PRN ×5 (01:40→23:16)
[2022-03-11] MEDS: IV 1/2NS 1000 ML 1,000 ML IV PRN (02:02)
[2022-03-11] MEDS: METOCLOPRAMIDE HCL 10 MG/2 ML VIAL IV SCH ×4 (05:42→23:23)
[2022-03-11] MEDS: HYDROCORTISONE SOD SUCCINATE 100 MG/2 ML VIAL IV SCH ×3 (05:42→21:06)
[2022-03-11 07:06] LABS: BASOPHILS % (AUTO) 0.1 % (0.0-2.0); HEMATOCRIT 29 % (33-45); HEMOGLOBIN 9.7 g/dL (11.5-14.8); LYMPHOCYTES # (AUTO) 0.5 K/uL (0.8-4.8); LYMPHOCYTES % (AUTO) 4.1 % (20.0-44.0); MEAN CORPUSCULAR HGB CONC 33 g/dl (31.0-36.0); MEAN CORPUSCULAR VOLUME 88 fL (82-100); MONOCYTES # (AUTO) 0.2 K/uL (0.1-1.30); MONOCYTES % (AUTO) 1.8 % (2.0-12.0); NEUTROPHILS # (AUTO) 11.3 K/uL (1.8-8.9); PLATELET COUNT (AUTO) 139 K/uL (150-450); RED BLOOD CELL COUNT(AUTO) 3.35 MIL/uL (4.0-5.2)
[2022-03-11 07:24] LABS: CALCIUM, SERUM 7.7 mg/dL (8.5-10.1); CREATININE 0.7 mg/dL (0.6-1.3); MAGNESIUM 1.9 mg/dL (1.8-2.4); POTASSIUM 3.9 mmol/L (3.5-5.1)
--- NOTE | 2022-03-11 07:25 | NUR ---
RN NOTES NO SIGNIFICANT CHANGES THROUGH OUT THE SHIFT. RESPIRATORY EVEN AND UNLABORED, NO SOB NOTED. NO S/S OF DISTRESS NOTED. RUNNING WITH 1/2 NS @ 75 ML/HR. PEG TUBE PATENT AND INTACT, VERIFIED PLACEMENT BY AUSCULTATION, NO RESIDUAL UPON ASPIRATION, RUNNING WITH JEVITY 1.2 @ 50 ML/HR. HEAD OF BED KEPT ELEVATED. HUNG CATHETER PATENT INTACT, DRAINING WITH CLEAR YELLOW URINE VIA GRAVITY. WOUND TREAT DONE, PROCEDURE TOLERATED WELL. ALL DUE MEDS GIVEN PER MD'S ORDERED. COLOSTOMY BAG INTACT NO LEAKING NOTED AND DRAINED. ALL SAFETY PRECAUTION PROVIDED, BED IN LOWEST POSITION. LOCKED. CONTINUE TO MONITOR
--- NOTE | 2022-03-11 07:29 | NUR ---
RN OPENING NOTES PATIENT RECEIVED ON BED, SLEEPING BUT OPENS EYES TO NAME AND LIGHT PAIN . ON MECHANICAL VENTILATION, SETTINGS AC22 TV 450 FiO2 40 AND PEEP 5 TOLERATED WELL. RESPIRATORY EVEN AND UNLABORED, NO SOB NOTED. NO S/S OF DISTRESS NOTED. NOTED WITH DORETHA PICC LINE FLUSHED WITH NS. NO S/S OF INFILTRATION NOTED AT SITE. RUNNING WITH 1/2 NS @ 75 ML/HR. PEG TUBE PATENT AND INTACT, VERIFIED PLACEMENT BY AUSCULTATION, NO RESIDUAL UPON ASPIRATION, RUNNING WITH JEVITY 1.2 @ 50 ML/HR. SAFETY MEASURES IN PALACE CALL LIGHT WITHIN REACH, BED LOCKED IN THE LOWEST POSITION 2 SIDE RAILS UP.
[2022-03-11] MEDS: PROSOURCE / PROSTAT (PYXIS) 30 ML UDC PO SCH ×3 (08:57→16:28)
[2022-03-11] MEDS: PANTOPRAZOLE 40 MG/PACK PACK GT SCH (08:58)
[2022-03-11] MEDS: DOCUSATE SODIUM LIQ 100 MG/10 ML UDC GT SCH ×2 (08:58→21:06)
[2022-03-11] MEDS: FLUCONAZOLE (100 MG) 100 MG TABLET PO SCH (08:58)
[2022-03-11] MEDS: CHLORHEXIDINE GLUCONATE 15 ML UDC MM SCH ×2 (08:58→16:28)
[2022-03-11] MEDS: GABAPENTIN 100 MG CAPSULE PO SCH ×2 (08:58→16:19)
[2022-03-11] MEDS: ZINC SULFATE 220 MG CAPSULE NG SCH (08:58)
[2022-03-11] MEDS: FOLIC ACID 1 MG TABLET PO SCH (08:58)
[2022-03-11] MEDS: FLUDROCORTISONE 0.1 MG TABLET PO SCH ×2 (08:58→16:19)
[2022-03-11] MEDS: ASCORBIC ACID 500 MG TABLET NG SCH (08:58)
[2022-03-11] MEDS: MIDODRINE HCL (5MG) 5 MG TABLET NG SCH ×3 (08:59→16:29)
[2022-03-11] MEDS: MULTIVITAMINS,THERAGRAN 1 UDTAB TABLET GT SCH (08:59)
[2022-03-11] MEDS: HYDROGEL DRESSING 90 GM TUBE TP SCH (09:00)
--- NOTE | 2022-03-11 11:58 | NUR ---
RN NOTE ATTEMPTED TO PERFORM WOUND CARE, PATIENT REFUSED. PER PATIENT SHE HAD HER WOUNDS CLEANED YESTERDAY 03/10/2022.
--- NOTE | 2022-03-11 18:45 | NUR ---
RN NOTES NO SIGNIFICANT CHANGES THROUGH OUT THE SHIFT. RESPIRATORY EVEN AND UNLABORED, NO SOB NOTED. NO S/S OF DISTRESS NOTED. RUNNING WITH 1/2 NS @ 75 ML/HR. PEG TUBE PATENT AND INTACT, VERIFIED PLACEMENT BY AUSCULTATION, NO RESIDUAL UPON ASPIRATION, RUNNING WITH JEVITY 1.2 @ 50 ML/HR. HEAD OF BED KEPT ELEVATED. HUNG CATHETER PATENT INTACT, DRAINING WITH CLEAR YELLOW URINE VIA GRAVITY. WOUND TREAT DONE, PROCEDURE TOLERATED WELL. ALL DUE MEDS GIVEN PER MD'S ORDERED. COLOSTOMY BAG INTACT NO LEAKING NOTED AND DRAINED. ALL SAFETY PRECAUTION PROVIDED, BED IN LOWEST POSITION. LOCKED. WILL ENDORSE TO NIGHT NURSE FOR JANES.
--- NOTE | 2022-03-11 19:20 | NUR ---
RN NOTE RECEIVED PATIENT IN BED, AO X 3, IN NO ACUTE DISTRESS AT THIS TIME. ON TRACH TO MECHANICAL VENT WITH SETTINGS PRESCRIBED, SATURATION AT 100%, SR ON THE MONITOR, HR IS 60. DORETHA PICC LINE IN PLACE, ALL HUBS PATENT AND FLUSHING WELL, NO S/S OF INFECTION OR BLEEDING WITH 1/2 NS INFUSING AT 75 ML/HR. NOTED GTUBE INTACT POSITIVE PLACEMENT NOTED, NO RESIDUAL, WITH TUBE FEEDING OF JEVITY AT 50 ML/HR. HUNG CATHETER DRAINING TO A CLEAR, YELLOW OUTPUT. GENERALIZED EDEMA NOTED. SAFETY MEASURES IMPLEMENTED. PATIENT BED ALARM IS ON. HEAD OF BED ELEVATED. BED IS LOCKED, IN LOWEST POSITION AND SIDE RAILS UP. CALL LIGHT WITHIN REACH OF THE PATIENT. WILL CONTINUE TO MONITOR AND REASSESS FOR ANY CHANGES.
[2022-03-11] MEDS: ERGOCALCIFEROL (VITAMIN D 2) 50,000 UNIT CAPSULE NG SCH (21:06)
[2022-03-12] VITALS: BP 157/91
[2022-03-12] MEDS: JEVITY 1.2 CAL 1,000 ML BOTTLE GT PRN (01:15)
[2022-03-12] MEDS: IPRATROPIUM NEB FS 0.5 MG/2.5 ML AMPUL.NEB NEB SCH ×4 (01:30→19:37)
[2022-03-12] MEDS: ALBUTEROL HALF STRENGTH 1.25 MG/3 ML VIAL.NEB NEB SCH ×4 (01:30→19:37)
[2022-03-12] MEDS: MORPHINE SULFATE INJ 4 MG/ML DISP.SYRIN IV PRN ×4 (03:45→21:53)
[2022-03-12 04:00] VITALS: BP 143/86
[2022-03-12] MEDS: HYDROCORTISONE SOD SUCCINATE 100 MG/2 ML VIAL IV SCH ×3 (05:55→21:52)
[2022-03-12] MEDS: METOCLOPRAMIDE HCL 10 MG/2 ML VIAL IV SCH ×4 (05:55→23:25)
[2022-03-12 06:25] LABS: BASOPHILS % (AUTO) 0.1 % (0.0-2.0); HEMATOCRIT 31 % (33-45); LYMPHOCYTES # (AUTO) 0.5 K/uL (0.8-4.8); LYMPHOCYTES % (AUTO) 4.8 % (20.0-44.0); MEAN CORPUSCULAR HGB CONC 33 g/dl (31.0-36.0); MEAN CORPUSCULAR VOLUME 90 fL (82-100); MONOCYTES # (AUTO) 0.1 K/uL (0.1-1.30); MONOCYTES % (AUTO) 1.4 % (2.0-12.0); NEUTROPHILS # (AUTO) 8.9 K/uL (1.8-8.9); NEUTROPHILS % (AUTO) 93.7 % (43.0-81.0); PLATELET COUNT (AUTO) 141 K/uL (150-450); RED BLOOD CELL COUNT(AUTO) 3.41 MIL/uL (4.0-5.2); WHITE BLOOD COUNT (AUTO) 9.5 K/uL (4.3-11.0)
[2022-03-12 07:28] LABS: CALCIUM, SERUM 7.7 mg/dL (8.5-10.1); CARBON DIOXIDE 20 mmol/L (21-32); CHLORIDE 119 mmol/L (98-107); CREATININE 0.6 mg/dL (0.6-1.3); GLUCOSE 135 mg/dL (74-106); SODIUM SERUM 149 mmol/L (136-145); UREA NITROGEN, BLOOD 40 mg/dL (7-18)
[2022-03-12 08:00] VITALS: BP 163/86
--- NOTE | 2022-03-12 08:00 | NUR ---
PARIMARIVEL FOUND WITH TRACH INTACT PORTEX 8 WITHOUT DISTRESS. PATIENT REMAIN STABLE ON THE VENT. Addendum: 03/12/22 at 0802 by JOSE NIÑO RT Amended: Links added.
--- NOTE | 2022-03-12 08:00 | NUR ---
RN NOTES RECEIVED PATIENT TRACH/VENT INTACT, PORTEX 8 WITHOUT RESPIRATORY DISTRESS. PATIENT TOLERATING SETTING WELL, ABLE TO VERBALIZE SELF. GTF RESIDUAL 20ML, RUNNING JEVITY 50 ML/HR, PATIENT HAS MULTIPLE WOUNDS, WAS ASKING PAIN MEDICATION PAIN LEVEL IS 8/10 PER PAIN SCALE. DUE MEDICATION ADMINISTERED VIA GT, ASSIST TURN AND REPOSTION Q 2HR. WILL FOLLOW UP.
[2022-03-12] MEDS: MIDODRINE HCL (5MG) 5 MG TABLET NG SCH ×4 (09:00→17:00)
--- NOTE | 2022-03-12 09:00 | NUR ---
RN NOTES HELD MIDODRINE AT THIS TIME PER PARAMETER BP-152/89, P-64. WILL FOLLOW UP.
[2022-03-12] MEDS: CHLORHEXIDINE GLUCONATE 15 ML UDC MM SCH ×2 (10:03→18:20)
[2022-03-12] MEDS: FLUCONAZOLE (100 MG) 100 MG TABLET PO SCH (10:03)
[2022-03-12] MEDS: MULTIVITAMINS,THERAGRAN 1 UDTAB TABLET GT SCH (10:03)
[2022-03-12] MEDS: ZINC SULFATE 220 MG CAPSULE NG SCH (10:03)
[2022-03-12] MEDS: GABAPENTIN 100 MG CAPSULE PO SCH ×2 (10:04→18:18)
[2022-03-12] MEDS: PANTOPRAZOLE 40 MG/PACK PACK GT SCH (10:04)
[2022-03-12] MEDS: ASCORBIC ACID 500 MG TABLET NG SCH (10:06)
[2022-03-12] MEDS: FOLIC ACID 1 MG TABLET PO SCH (10:06)
[2022-03-12] MEDS: FLUDROCORTISONE 0.1 MG TABLET PO SCH ×2 (10:06→18:18)
[2022-03-12] MEDS: PROSOURCE / PROSTAT (PYXIS) 30 ML UDC PO SCH ×3 (10:07→17:00)
[2022-03-12] MEDS: HYDROGEL DRESSING 90 GM TUBE TP SCH (10:07)
--- NOTE | 2022-03-12 10:08 | NUR ---
RN NOTES ADMINISTERED MORPHINE SULFATE 4 MG/ML IV PUSH FOR GENERALIZED PAIN 04/26 PER PATIENT REQUEST BP- 152/89, P-64. R- 18. WILL FOLLOW UP.
[2022-03-12] MEDS: DOCUSATE SODIUM LIQ 100 MG/10 ML UDC GT SCH ×2 (10:11→21:52)
[2022-03-12 12:00] VITALS: BP 170/94
--- NOTE | 2022-03-12 14:16 | NUR ---
rn notes administered morphine sulfate 4 mg/ml iv push for generalized pain 05/27 per patient request, bp 170/94, p-65.
[2022-03-12 16:00] VITALS: BP 154/89
--- NOTE | 2022-03-12 18:30 | NUR ---
RN NOTES PM CARE DONE, HELD MIDODRINE MEDICATION BP 165/99,P-69. DRESSING CHANGED, DUE MEDICATION ADMINISTERED, RUNNING 50 ML/HR JEVITY 1.2 VIA GT INTACT. ASSIST TURN AND REPOSTION Q 2 HR. ENDORSED ONCOMING NURSE FOLLOW JANES.
[2022-03-12 20:00] VITALS: BP 157/92
--- NOTE | 2022-03-12 20:00 | NUR ---
RN NOTE RECEIVED PT AWAKE. ALERT ORIENTED. NOT IN ANY DISTRESS, WITH TRACH CONNECTED TO VENT, O2 SAT AT 99%. DENIES PAIN AT THIS TIME. SR ON TELE MONITOR WITH HR 72. GT PATENT AND IN PLACE, GT FEEDING OF JEVITY 1.2 AT 50ML/HR. NO RESIDUAL NOTED, KEPT HOB ELEVATED. DORETHA PICC LINE INTACT. HUNG CATH IN PLACE, DRAINING CLEAR YELLOW URINE OUTPUT. WILL CONTINUE TO MONITOR.
--- NOTE | 2022-03-12 22:10 | NUR ---
RN NOTE PROCALCITONIN 8.2. NOTIFIED DR ARMIJO. NO ORDER MADE. Addendum: 03/13/22 at 0616 by EUGENIE MACKAY RN WRONG PATIENT.
[2022-03-13] VITALS: BP 158/94
--- NOTE | 2022-03-13 00:05 | NUR ---
RN NOTE PT REFUSED TO HAVE TEMP CHECK ORALLY, UNABLE TO CHECK AXILLARY. NOTED WITH 92.6 TEMP RECTALLY. PT STATED SHE FEELS HOT AND DOES NOT WANT TO HAVE THE MALACHI HUGGER. EXPLAINED TO PT. MALACHI HUGGER APPLIED. WILL CONTINUE TO MONITOR.
[2022-03-13] MEDS: ALBUTEROL HALF STRENGTH 1.25 MG/3 ML VIAL.NEB NEB SCH ×4 (01:50→20:22)
[2022-03-13] MEDS: IPRATROPIUM NEB FS 0.5 MG/2.5 ML AMPUL.NEB NEB SCH ×4 (01:50→20:22)
[2022-03-13] MEDS: JEVITY 1.2 CAL 1,000 ML BOTTLE GT PRN (03:42)
[2022-03-13 04:00] VITALS: BP 144/79
[2022-03-13] MEDS: METOCLOPRAMIDE HCL 10 MG/2 ML VIAL IV SCH ×4 (05:01→23:41)
[2022-03-13] MEDS: HYDROCORTISONE SOD SUCCINATE 100 MG/2 ML VIAL IV SCH ×3 (05:01→21:14)
[2022-03-13] MEDS: MORPHINE SULFATE INJ 4 MG/ML DISP.SYRIN IV PRN ×5 (05:02→23:42)
[2022-03-13 06:04] LABS: BASOPHILS % (AUTO) 0.2 % (0.0-2.0); HEMATOCRIT 30 % (33-45); HEMOGLOBIN 9.4 g/dL (11.5-14.8); LYMPHOCYTES # (AUTO) 0.3 K/uL (0.8-4.8); MEAN CORPUSCULAR HGB CONC 32 g/dl (31.0-36.0); MEAN CORPUSCULAR VOLUME 89 fL (82-100); MONOCYTES # (AUTO) 0.1 K/uL (0.1-1.30); NEUTROPHILS # (AUTO) 12.8 K/uL (1.8-8.9); NEUTROPHILS % (AUTO) 96.8 % (43.0-81.0); PLATELET COUNT (AUTO) 147 K/uL (150-450); RED BLOOD CELL COUNT(AUTO) 3.33 MIL/uL (4.0-5.2); WHITE BLOOD COUNT (AUTO) 13.2 K/uL (4.3-11.0)
[2022-03-13 07:01] LABS: CALCIUM, SERUM 7.9 mg/dL (8.5-10.1); CREATININE 0.5 mg/dL (0.6-1.3); MAGNESIUM 1.7 mg/dL (1.8-2.4); PHOSPHORUS 3.8 mg/dL (2.5-4.9); POTASSIUM 3.8 mmol/L (3.5-5.1)
--- NOTE | 2022-03-13 07:36 | NUR ---
RN NOTE PT AWAKE. NOT IN ANY DISTRESS, TOLERATES VENT SETTING. BODY TEMP NOW 96.6. CONTINUE ON MALACHI HUGGER. PT ABLE TO MAKE NEEDS KNOWN. PT TOLERATES GT FEEDING, JEVITY AT 50ML/HR. NO RESIDUALS NOTED. KEPT HOB ELEVATED. PT WITH GENERALIZED EDEMA. NOTED WITH BRUISING ON RIGHT UPPER ARM. PAGER DIRECTOR SUPPLY DR ARMIJO AT 0615, NO CALL BACK. ENDORSED TO NOAH FOR JANES.
--- NOTE | 2022-03-13 07:40 | NUR ---
RN NOTE PT AWAKE. NOT IN ANY DISTRESS, TOLERATES VENT SETTING. BODY TEMP NOW 96.6. CONTINUE ON MALACHI HUGGER FOR DECREASED TEMPERATURE. PATIENT ABLE TO MAKE NEEDS KNOWN. ON PARALEGAL ASSISTANT. TOLERATING GASTRIC TUBE FEEDING, JEVITY AT 50ML/HR. NO RESIDUALS NOTED. HEAD OF BED ELEVATED. GENERALIZED EDEMA NOTED. NOTED WITH BRUISING ON RIGHT UPPER ARM. PICC LINE CATHETER NOTED ON LEFT UPPER ARM. BED IN LOWEST POSITION, CALL LIGHT WITHIN REACH, SIDE RAILS UP. WILL CONTINUE PLAN OF CARE AND ANTICIPATE NEEDS.
[2022-03-13 08:00] VITALS: BP 125/71
[2022-03-13] MEDS: FLUCONAZOLE (100 MG) 100 MG TABLET PO SCH (09:00)
[2022-03-13] MEDS: PANTOPRAZOLE 40 MG/PACK PACK GT SCH (09:00)
[2022-03-13] MEDS: MULTIVITAMINS,THERAGRAN 1 UDTAB TABLET GT SCH (09:00)
[2022-03-13] MEDS: ZINC SULFATE 220 MG CAPSULE NG SCH (09:00)
[2022-03-13] MEDS: GABAPENTIN 100 MG CAPSULE PO SCH ×2 (09:01→16:44)
[2022-03-13] MEDS: FOLIC ACID 1 MG TABLET PO SCH (09:01)
[2022-03-13] MEDS: MIDODRINE HCL (5MG) 5 MG TABLET NG SCH ×3 (09:01→16:40)
[2022-03-13] MEDS: ASCORBIC ACID 500 MG TABLET NG SCH (09:02)
[2022-03-13] MEDS: DOCUSATE SODIUM LIQ 100 MG/10 ML UDC GT SCH ×2 (09:02→21:14)
[2022-03-13] MEDS: FLUDROCORTISONE 0.1 MG TABLET PO SCH ×2 (09:02→16:44)
[2022-03-13] MEDS: CHLORHEXIDINE GLUCONATE 15 ML UDC MM SCH ×2 (09:02→16:40)
[2022-03-13] MEDS: HYDROGEL DRESSING 90 GM TUBE TP SCH (09:34)
[2022-03-13] MEDS: PROSOURCE / PROSTAT (PYXIS) 30 ML UDC PO SCH ×3 (09:35→16:44)
[2022-03-13 12:00] VITALS: BP 151/83
[2022-03-13] MEDS: FUROSEMIDE 40 MG/4 ML VIAL IV SCH (12:02)
[2022-03-13] MEDS: Magnesium 1GM/D5W 100ML PREMIX 100 ML IV SCH ×2 (12:02→12:52)
[2022-03-13 16:00] VITALS: BP 125/72
--- NOTE | 2022-03-13 18:57 | NUR ---
RN NOTE PT AWAKE. NOT IN ANY DISTRESS, TOLERATES VENT SETTING. BODY TEMP NOW 96.6. CONTINUE ON MALACHI HUGGER FOR DECREASED TEMPERATURE. PATIENT ABLE TO MAKE NEEDS KNOWN THROUGH MOUTHING WORDS. ON PREPARED FOODS ASSOCIATE. TOLERATING GASTRIC TUBE FEEDING, JEVITY AT 50ML/HR. NO RESIDUALS NOTED. HEAD OF BED ELEVATED. GENERALIZED EDEMA NOTED. NOTED WITH BRUISING ON RIGHT UPPER ARM. PICC LINE CATHETER NOTED ON LEFT UPPER ARM. BED IN LOWEST POSITION, CALL LIGHT WITHIN REACH, SIDE RAILS UP. KEPT CLEAN AND DRY THROUGHOUT SHIFT. COLOSTOMY EMPTIED, SOFT WELL FORMED BROWN FECES. WILL ENDORSE TO NIGHTSHIFT RN FOR CONTINUATION OF CARE.
[2022-03-13 20:00] VITALS: BP 135/74
--- NOTE | 2022-03-13 20:25 | NUR ---
RN NOTE RECEIVED PT AWAKE. ALERT ORIENTED, MOUTHING WORDS. NOT IN ANY DISTRESS, WITH TRACH CONNECTED TO VENT, O2 SAT AT 98%. DENIES PAIN AT THIS TIME. GT PATENT AND IN PLACE, GT FEEDING OF JEVITY 1.2 AT 50ML/HR. 10ML MINIMAL RESIDUAL NOTED, KEPT HOB ELEVATED. DORETHA PICC LINE INTACT. HUNG CATH IN PLACE, NOTED WITH SOME LEAKING URINE. WILL CONTINUE TO MONITOR.
--- NOTE | 2022-03-13 20:30 | NUR ---
RN NOTE PT BODY TEMP 98.2. REMOVED MALACHI BROWN. WILL CONTINUE TO MONITOR.
[2022-03-14] VITALS: BP 141/79
[2022-03-14] MEDS: IPRATROPIUM NEB FS 0.5 MG/2.5 ML AMPUL.NEB NEB SCH ×4 (02:05→19:45)
[2022-03-14] MEDS: ALBUTEROL HALF STRENGTH 1.25 MG/3 ML VIAL.NEB NEB SCH ×4 (02:05→19:45)
[2022-03-14] MEDS: JEVITY 1.2 CAL 1,000 ML BOTTLE GT PRN (02:18)
[2022-03-14 04:00] VITALS: BP 148/81
[2022-03-14] MEDS: METOCLOPRAMIDE HCL 10 MG/2 ML VIAL IV SCH ×4 (05:08→22:42)
[2022-03-14] MEDS: HYDROCORTISONE SOD SUCCINATE 100 MG/2 ML VIAL IV SCH ×3 (05:08→20:26)
[2022-03-14] MEDS: MORPHINE SULFATE INJ 4 MG/ML DISP.SYRIN IV PRN ×4 (05:13→22:36)
[2022-03-14 06:13] LABS: HEMATOCRIT 28 % (33-45); HEMOGLOBIN 8.9 g/dL (11.5-14.8); LYMPHOCYTES # (AUTO) 0.3 K/uL (0.8-4.8); MEAN CORPUSCULAR HGB CONC 32 g/dl (31.0-36.0); MEAN CORPUSCULAR VOLUME 89 fL (82-100); MONOCYTES # (AUTO) 0.1 K/uL (0.1-1.30); PLATELET COUNT (AUTO) 141 K/uL (150-450); RED BLOOD CELL COUNT(AUTO) 3.13 MIL/uL (4.0-5.2); WHITE BLOOD COUNT (AUTO) 12.4 K/uL (4.3-11.0)
[2022-03-14 06:49] LABS: CALCIUM, SERUM 7.6 mg/dL (8.5-10.1); CREATININE 0.5 mg/dL (0.6-1.3); MAGNESIUM 1.8 mg/dL (1.8-2.4); PHOSPHORUS 3.4 mg/dL (2.5-4.9); POTASSIUM 3.3 mmol/L (3.5-5.1)
--- NOTE | 2022-03-14 07:02 | NUR ---
RN NOTE PT AWAKE. NOT IN ANY DISTRESS, TOLERATES VENT SETTING. PT ABLE TO MAKE NEEDS KNOWN BY MOUTHING WORDS. PT TOLERATES GT FEEDING, JEVITY AT 50ML/HR. NO RESIDUALS NOTED. KEPT HOB ELEVATED. PT NOTED WITH BED SOILED WITH URINE, MINIMAL URINE OUTPUT ON HUNG, NEW HUNG REINSERTED. COLOSTOMY BAG IN PLACE. WOUND DRESSINGS INTACT. ENDORSED TO [facility] FOR JANES.
--- NOTE | 2022-03-14 07:05 | NUR ---
RN NOTE RECEIVED PT AWAKE. ALERT ORIENTED, NON VERBAL , TRACH/ VENT DEPENDENT , TOLERAING VENT SETTING WELL, O2 SAT WNL, NO DISTESS NOTED, GT PATENT AND IN PLACE, GT FEEDING OF JEVITY 1.2 AT 50ML/HR. 5 ML MINIMAL RESIDUAL NOTED, KEPT HOB ELEVATED. DORETHA PICC LINE INTACT. HUNG CATH IN PLACE, SR UP X3, CALL LIGHT WITHIN EASY REACH, BED LOCKED AND IN LOWEST POSITION, CONTINUE TO MONITOR.
[2022-03-14 08:00] VITALS: BP 157/81
[2022-03-14] MEDS: DOCUSATE SODIUM LIQ 100 MG/10 ML UDC GT SCH ×2 (08:48→20:25)
[2022-03-14] MEDS: FUROSEMIDE 40 MG/4 ML VIAL IV SCH (08:48)
[2022-03-14] MEDS: CHLORHEXIDINE GLUCONATE 15 ML UDC MM SCH ×2 (08:48→16:50)
[2022-03-14] MEDS: PANTOPRAZOLE 40 MG/PACK PACK GT SCH (08:48)
[2022-03-14] MEDS: ASCORBIC ACID 500 MG TABLET NG SCH (08:51)
[2022-03-14] MEDS: MULTIVITAMINS,THERAGRAN 1 UDTAB TABLET GT SCH (08:52)
[2022-03-14] MEDS: GABAPENTIN 100 MG CAPSULE PO SCH ×2 (08:52→16:53)
[2022-03-14] MEDS: FLUDROCORTISONE 0.1 MG TABLET PO SCH ×2 (08:53→16:53)
[2022-03-14] MEDS: FOLIC ACID 1 MG TABLET PO SCH (08:53)
[2022-03-14] MEDS: FLUCONAZOLE (100 MG) 100 MG TABLET PO SCH (08:53)
[2022-03-14] MEDS: MIDODRINE HCL (5MG) 5 MG TABLET NG SCH ×3 (08:53→17:00)
[2022-03-14] MEDS: ZINC SULFATE 220 MG CAPSULE NG SCH (08:56)
[2022-03-14] MEDS: PROSOURCE / PROSTAT (PYXIS) 30 ML UDC PO SCH ×3 (08:57→16:53)
[2022-03-14] MEDS: HYDROGEL DRESSING 90 GM TUBE TP SCH (08:57)
[2022-03-14] MEDS ORDERED: POTASSIUM CHLORIDE 20 MEQ POWDER PACKET NG SCH (11:30)
[2022-03-14 12:00] VITALS: BP 135/82
--- NOTE | 2022-03-14 12:00 | NUR ---
RN NOTES PT REFUSED AM CARE AND WOUND DRESSING CHANGE .
[2022-03-14 16:00] VITALS: BP 155/85
--- NOTE | 2022-03-14 18:30 | NUR ---
RN NOTES PT REFUSED AM , PM AND WOUND CARE , DOES NOT WANT TO BE TOUCH , NO SIGNIFICANT CHANGES NOTED ON THIS SHIFT, WILL ENDORSE TO TORCH SHEARER NURSE FOR CONTINUITY OF CARE .
--- NOTE | 2022-03-14 19:30 | NUR ---
HIGH SCHOOL COUNSELOR OPENING NOTE RECEIVED PT IN BED AWAKE. ALERT/ORIENTED X 2. PT IS NON VERBAL BUT CAN COMMUNICATE THROUGH HAND AND HEAD GESTURES. TRACH/ VENT DEPENDENT ,TOLERATING VENT SETTINGS WELL, O2 SAT IS WNL, NO S/SX OF ACUTE DISTRESS NOTED AT THIS TIME. IV ACCESS NOTED AT DORETHA PICC LINE, INFUSING NS TKO. NO SIGNS OF INFILTRATION NOTED. ON GT FEEDING OF JEVITY 1.2 AT 50 CC/HR. HUNG CATH IN PLACE, DRAINING YELLOW URINE VIA GRAVITY. COLOSTOMY NOTED, CLEAN AND INTACT. ALL SAFETY MEASURES IN PLACE: BED LOCKED AND IN LOWEST POSITION, SR UP X3, CALL LIGHT WITHIN REACH. WILL CONTINUE TO MONITOR.
[2022-03-14 20:00] VITALS: BP 149/80
--- NOTE | 2022-03-14 22:25 | NUR ---
RN NOTE: PT COMPLAINED OF PAIN AND REQUESTED FOR HER DOSE OF MORPHINE IV. GAVE PAIN MEDS ORDERED. MADE SURE PT IS COMFORTABLE AND IN NO ACUTE DISTRESS. WILL CONTINUE TO MONITOR CLOSELY.
--- NOTE | 2022-03-14 23:30 | NUR ---
RN NOTE PT IS AWAKE AND COMFORTABLY RESTING IN THE BED WHILE WATCHING TV. WILL CONTINUE TO MONITOR FOR THE REST OF THE NIGHT.
[2022-03-15] VITALS (7 sets, daily range): BP systolic 120–157; BP diastolic 70–92
[2022-03-15] MEDS: IPRATROPIUM NEB FS 0.5 MG/2.5 ML AMPUL.NEB NEB SCH ×4 (01:44→19:35)
[2022-03-15] MEDS: ALBUTEROL HALF STRENGTH 1.25 MG/3 ML VIAL.NEB NEB SCH ×4 (01:44→19:35)
--- NOTE | 2022-03-15 01:50 | NUR ---
RN NOTE PT'S HUNG CATH WAS PULLED OUT. REPLACED WITH A NEW ONE, DRAINING YELLOW COLORED URINE BY GRAVITY.
--- NOTE | 2022-03-15 02:15 | NUR ---
RN NOTE PM CARE/WOUND CARE DONE. COMPLETE LINEN CHANGE DONE, TOO.
[2022-03-15] MEDS: MORPHINE SULFATE INJ 4 MG/ML DISP.SYRIN IV PRN ×5 (02:38→16:58)
[2022-03-15] MEDS: JEVITY 1.2 CAL 1,000 ML BOTTLE GT PRN (02:42)
[2022-03-15] MEDS: HYDROCORTISONE SOD SUCCINATE 100 MG/2 ML VIAL IV SCH ×3 (04:40→20:58)
[2022-03-15] MEDS: METOCLOPRAMIDE HCL 10 MG/2 ML VIAL IV SCH ×4 (04:45→23:44)
[2022-03-15] MEDS: IV NS 0.9% 250 ML IV PRN (06:15)
[2022-03-15 06:34] LABS: BASOPHILS % (AUTO) 0.1 % (0.0-2.0); EOSINOPHILS % (AUTO) 0.1 % (0.0-6.0); HEMATOCRIT 28 % (33-45); LYMPHOCYTES # (AUTO) 0.2 K/uL (0.8-4.8); LYMPHOCYTES % (AUTO) 3.4 % (20.0-44.0); MEAN CORPUSCULAR HGB CONC 33 g/dl (31.0-36.0); MEAN CORPUSCULAR VOLUME 89 fL (82-100); MONOCYTES # (AUTO) 0.1 K/uL (0.1-1.30); MONOCYTES % (AUTO) 1.8 % (2.0-12.0); NEUTROPHILS # (AUTO) 6.7 K/uL (1.8-8.9); NEUTROPHILS % (AUTO) 94.6 % (43.0-81.0); PLATELET COUNT (AUTO) 139 K/uL (150-450); RED BLOOD CELL COUNT(AUTO) 3.13 MIL/uL (4.0-5.2); WHITE BLOOD COUNT (AUTO) 7.1 K/uL (4.3-11.0)
--- NOTE | 2022-03-15 06:59 | NUR ---
RN CLOSING NOTE NO SIGNIFICANT CHANGES THROUGHOUT THE SHIFT. ALL VS WNL. DUE MEDS GIVEN. NEEDS ATTENDED TO. ALL SAFETY MEASURES IMPLEMENTED. WILL ENDORSE TO AM SHIFT NURSE FOR JANES.
[2022-03-15 07:02] LABS: CALCIUM, SERUM 7.5 mg/dL (8.5-10.1); CREATININE 0.4 mg/dL (0.6-1.3); POTASSIUM 3.6 mmol/L (3.5-5.1)
[2022-03-15] MEDS: DOCUSATE SODIUM LIQ 100 MG/10 ML UDC GT SCH ×2 (08:18→20:58)
[2022-03-15] MEDS: MIDODRINE HCL (5MG) 5 MG TABLET NG SCH ×3 (08:19→17:52)
[2022-03-15] MEDS: ASCORBIC ACID 500 MG TABLET NG SCH (08:19)
[2022-03-15] MEDS: GABAPENTIN 100 MG CAPSULE PO SCH ×2 (08:20→17:53)
[2022-03-15] MEDS: PANTOPRAZOLE 40 MG/PACK PACK GT SCH (08:20)
[2022-03-15] MEDS: FOLIC ACID 1 MG TABLET PO SCH (08:21)
[2022-03-15] MEDS: FUROSEMIDE 40 MG/4 ML VIAL IV SCH (08:21)
[2022-03-15] MEDS: FLUDROCORTISONE 0.1 MG TABLET PO SCH ×2 (08:21→17:53)
[2022-03-15] MEDS: CHLORHEXIDINE GLUCONATE 15 ML UDC MM SCH ×2 (08:22→17:53)
[2022-03-15] MEDS: MULTIVITAMINS,THERAGRAN 1 UDTAB TABLET GT SCH (08:23)
[2022-03-15] MEDS: ZINC SULFATE 220 MG CAPSULE NG SCH (08:26)
[2022-03-15] MEDS: PROSOURCE / PROSTAT (PYXIS) 30 ML UDC PO SCH ×3 (08:36→17:53)
[2022-03-15] MEDS: HYDROGEL DRESSING 90 GM TUBE TP SCH (08:44)
[2022-03-15] MEDS: HYDROCODONE/APAP 10/325MG TABLET PO PRN (18:25)
--- NOTE | 2022-03-15 18:58 | NUR ---
RN closing note Patient is bedbound , on G tube feeding at 50 ml of Jevity /hr , had Claros cath in place with crear yellow urine. STORM PICC line , Patient often complained of pain , by grimacing , and moaning , . Patient is alert, oriented non verbal , Lastpain medication ws given at 18:00 pm [place] . Patient breathing through the T pice . All medication were administered . Bed is at lowest position , bed side rails are up . Call light within reach.
--- NOTE | 2022-03-15 19:36 | NUR ---
RCVD PT TRACHED W PORTEX 8 ON VENT WITH THE SETTINGS OF AC 22,VT 425,FIO2 40%,PEEP 5. PT IS AWAKE ,ALERT AND NON VERBAL. BREATHING TX GIVEN PER MD'S ORDER, NO ADVERSE REACTION NOTED. SX DONE, TRACH IS PATENT AND SECURED. DRAIN TILER DONE. VENT PLUGGED INTO RED OUTLET, VENT ALARMS ON AND AUDIBLE. NO RESPIRATORY DISTRESS NOTED AT THIS TIME. WILL CONTINUE TO MONITOR T/O SHIFT.
--- NOTE | 2022-03-15 21:37 | NUR ---
picture enlarger Opening Note Pt received in bed, sleeping, non-verbal. Pt on RA with current O2sat 95%, no s/s of resp distress, no SOB or cough, non-labored and equal breathing. Pt attached to external monitor, SR with HR 80. Pt noted to have colostomy; intact and patent with no signs of leaking; ostomy is pink and moist, no s/s of necrosis. Pt has GTF with Jevity running at 50 ml/hr; no residual noted. DORETHA PICC line intact and patent; currently has NS TKO at 10 ml/hr. Bed in lowest position, call light within reach, side rails up x3. Will continue to monitor throughout the night. Addendum: 03/16/22 at 0642 by PRINCESS LELE SUTTON Pt on trach portex #8, AC 22, TV 425, FiO2 40%, PEEP 5,
[2022-03-16] VITALS: BP 144/84
[2022-03-16] MEDS: MORPHINE SULFATE INJ 4 MG/ML DISP.SYRIN IV PRN ×4 (00:22→21:53)
--- NOTE | 2022-03-16 00:24 | NUR ---
RN Note Pt complains of 10/10 generalized pain. Pt administered morphine 4 mg. Will monitor for effectiveness.
--- NOTE | 2022-03-16 01:07 | NUR ---
RN Note Pt's pain decreased from 10/10 to 8/10.
[2022-03-16] MEDS: IPRATROPIUM NEB FS 0.5 MG/2.5 ML AMPUL.NEB NEB SCH ×4 (01:15→19:07)
[2022-03-16] MEDS: ALBUTEROL HALF STRENGTH 1.25 MG/3 ML VIAL.NEB NEB SCH ×4 (01:15→19:07)
--- NOTE | 2022-03-16 01:15 | NUR ---
RN Note Pt noted to have low-grade temp of 99.1F. Pt refused cooling measures (removing blankets, ice packs). Will monitor temp throughout the night.
[2022-03-16] MEDS: JEVITY 1.2 CAL 1,000 ML BOTTLE GT PRN ×2 (01:44→21:53)
[2022-03-16 04:00] VITALS: BP 147/78
[2022-03-16] MEDS: HYDROCORTISONE SOD SUCCINATE 100 MG/2 ML VIAL IV SCH ×3 (05:42→21:16)
[2022-03-16] MEDS: METOCLOPRAMIDE HCL 10 MG/2 ML VIAL IV SCH ×4 (05:42→23:09)
--- NOTE | 2022-03-16 06:38 | NUR ---
RN Note Pt refused scheduled chest x-ray.
--- NOTE | 2022-03-16 06:39 | NUR ---
software application tester Closing Note Pt in bed, awake, non-verbal, slept intermittently throughout the night. Pt on trach portex #8, AC 22, TV 425, FiO2 40%, PEEP 5, tolerating vent settings well; O2sat ranged from 93%- 95% during the night, no s/s of resp distress, no SOB or cough, non-labored and equal breathing. Pt attached to external monitor, SR with HR ranging from 80-100. Pt's colostomy is intact and patent with no signs of leaking; ostomy is pink and moist, no s/s of necrosis; took out 150 ml of stool that is thick in consistency. GT intact and patent; Jevity running at 50 ml/hr; no residual noted. DORETHA PICC line intact and patent. Claros intact and patent, draining cloudy and yellow urine; took out 550 ml. Bed in lowest position, call light within reach, side rails up x3. [facility] to [facility] care. Addendum: 03/16/22 at 0643 by PRINCESS ROYAL RN Pt refused to be turned and repositioned throughout the night. Pt also refused to have wound care done and to be cleaned.
[2022-03-16 06:53] LABS: HEMATOCRIT 27 % (33-45); HEMOGLOBIN 8.8 g/dL (11.5-14.8); LYMPHOCYTES # (AUTO) 0.2 K/uL (0.8-4.8); LYMPHOCYTES % (AUTO) 3.3 % (20.0-44.0); MEAN CORPUSCULAR HGB CONC 32 g/dl (31.0-36.0); MEAN CORPUSCULAR VOLUME 89 fL (82-100); MONOCYTES # (AUTO) 0.1 K/uL (0.1-1.30); MONOCYTES % (AUTO) 1.7 % (2.0-12.0); NEUTROPHILS # (AUTO) 6.9 K/uL (1.8-8.9); PLATELET COUNT (AUTO) 140 K/uL (150-450); RED BLOOD CELL COUNT(AUTO) 3.05 MIL/uL (4.0-5.2); WHITE BLOOD COUNT (AUTO) 7.3 K/uL (4.3-11.0)
[2022-03-16 07:06] LABS: CALCIUM, SERUM 7.6 mg/dL (8.5-10.1); CREATININE 0.5 mg/dL (0.6-1.3); POTASSIUM 3.4 mmol/L (3.5-5.1)
--- NOTE | 2022-03-16 07:30 | NUR ---
RN OPENING NOTE PT OBSERVED IN BED WITH TRACH AND ON MECHANICAL VENT WITH ALL PRESCRIBED SETTINGS TOLERATING WELL WITH NO SIGNS OF LABORED BREATHING OR DISTRESS O2 SAT BETWEEN 93 - 95%. PT IS NON VERBAL, MOUTHS WORDS AND NODS HEAD TO ANSWER SIMPLE QUESTIONS. PT TELE MONITORED SR 88 - 100. GTUBE IS IN PLACE WITH POSITIVE PLACEMENT INFUSING WITH JEVITY @50 ML/HR. FC IS IN PLACE DRAINING URINE TO GRAVITY AND LLQ COLOSTOMY BAG IS IN PLACE. IV ACCESS L UA PICC LINE PATENT AND SALINE FLUSHEDL; NO FLUIDS INFUSING. BED IS LOCKED IN LOWEST POSITION X2 BED RAILS UP AND ALL HOSPITAL SAFETY MEASURES ARE IN PLACE. WILL CONTINUE TO MONITOR THIS SHIFT.
[2022-03-16 08:00] VITALS: BP 153/79
[2022-03-16] MEDS: HYDROGEL DRESSING 90 GM TUBE TP SCH (09:00)
[2022-03-16] MEDS: DOCUSATE SODIUM LIQ 100 MG/10 ML UDC GT SCH ×3 (09:00→21:17)
[2022-03-16] MEDS: MIDODRINE HCL (5MG) 5 MG TABLET NG SCH ×3 (09:00→16:29)
--- NOTE | 2022-03-16 09:00 | NUR ---
RN NOTE: PT REFUSAL PT REFUSED COLACE AND ALSO REFUSED BEING REPOSITIONED AND HAVING WOUND CARE DONE.
[2022-03-16] MEDS: PANTOPRAZOLE 40 MG/PACK PACK GT SCH (09:37)
[2022-03-16] MEDS: CHLORHEXIDINE GLUCONATE 15 ML UDC MM SCH ×2 (09:37→16:29)
[2022-03-16] MEDS: PROSOURCE / PROSTAT (PYXIS) 30 ML UDC PO SCH ×3 (09:37→17:21)
[2022-03-16] MEDS: GABAPENTIN 100 MG CAPSULE PO SCH ×2 (09:38→17:19)
[2022-03-16] MEDS: ZINC SULFATE 220 MG CAPSULE NG SCH (09:39)
[2022-03-16] MEDS: FLUDROCORTISONE 0.1 MG TABLET PO SCH ×2 (09:40→17:19)
[2022-03-16] MEDS: MULTIVITAMINS,THERAGRAN 1 UDTAB TABLET GT SCH (09:40)
[2022-03-16] MEDS: ASCORBIC ACID 500 MG TABLET NG SCH (09:40)
[2022-03-16] MEDS: FOLIC ACID 1 MG TABLET PO SCH (09:40)
[2022-03-16] MEDS: FUROSEMIDE 40 MG/4 ML VIAL IV SCH (09:40)
[2022-03-16] MEDS ORDERED: POTASSIUM CHLORIDE 20 MEQ POWDER PACKET GT SCH (11:00)
[2022-03-16 12:00] VITALS: BP 155/75
[2022-03-16 16:30] VITALS: BP 151/80
--- NOTE | 2022-03-16 17:04 | NUR ---
RT Patient received on vent: AC 22 425 40% +5. Breathing tx tolerated well with no adverse reaction. Suctioned small amount of thick thick yellowish lugo secretions. Trach patent and secure. Vent plugged into red outlet with alarms on and audible. Ambu bag and back up trach at bedside. No SOB or respiratory distress noted at this time.
--- NOTE | 2022-03-16 18:55 | NUR ---
RN CLOSING NOTE PT IS IN BED WITH TRACH AND ON MECHANICAL VENT WITH ALL PRESCRIBED SETTINGS TOLERATING WELL WITH NO SIGNS OF LABORED BREATHING OR DISTRESS O2 SAT BETWEEN 91 -92%. PT IS NON VERBAL, MOUTHS WORDS AND NODS HEAD TO ANSWER SIMPLE QUESTIONS. PT TELE MONITORED SR 88 - 100. GTUBE IS IN PLACE WITH POSITIVE PLACEMENT INFUSING WITH JEVITY @50 ML/HR. FC IS IN PLACE DRAINING URINE TO GRAVITY -1750ML AND LLQ COLOSTOMY BAG IS IN PLACE -200ML. IV ACCESS L UA PICC LINE PATENT AND SALINE FLUSHED; NO FLUIDS INFUSING. BED IS LOCKED IN LOWEST POSITION X2 BED RAILS UP AND ALL HOSPITAL SAFETY MEASURES ARE IN PLACE. WILL ENDORSE TO NEON INSTALLER NURSE FOR JANES.
[2022-03-16 20:00] VITALS: BP 157/79
--- NOTE | 2022-03-16 20:58 | NUR ---
consulting services manager Opening Note Pt received in bed, awake, watching TV. non-verbal but is able to mouth what she needs. Pt has trach with portex #8, AC 22, TV 425, FiO2 40%, PEEP 5; pt tolerating vent settings well with no s/s of resp distress, non-labored and equal breathing, no SOB or cough; pt appears comfortable. Pt attached to external monitor currently ST with HR of 104. Pt has LLQ colostomy, intact and patent; no s/s of necrosis; pouch is currently empty; will monitor for output. Claros is intact and patent, draining clear and yellow urine. GT dressing is C/D/I with Jevity running at 50 ml/hr; no residual noted. DORETHA PICC line is intact and patent; flushes easily with no resistance; currently has no fluids/meds running through it. Bed in lowest position, call light within reach, side rails up x3. WIll continue to monitor throughout the night.
--- NOTE | 2022-03-16 21:54 | NUR ---
RN Note Pt complains of a 10/10 pain and reports that her pain is everywhere; pt requests for morphine. Pt administered morphine 4 mg. Will monitor for effectiveness.
--- NOTE | 2022-03-16 22:31 | NUR ---
RN Note Morphine reassessment. Pt is asleep but easily arousable; pt reports her pain decreased from 10/10 to 7/10.
[2022-03-17] VITALS: BP 156/74
[2022-03-17] MEDS: ALBUTEROL HALF STRENGTH 1.25 MG/3 ML VIAL.NEB NEB SCH ×4 (01:31→19:45)
[2022-03-17] MEDS: IPRATROPIUM NEB FS 0.5 MG/2.5 ML AMPUL.NEB NEB SCH ×4 (01:31→19:45)
--- NOTE | 2022-03-17 02:07 | NUR ---
RN NOTE RECEIVED PATIENT IN BED, AO X 3, IN NO ACUTE DISTRESS AT THIS TIME. ON TRACH TO MECHANICAL VENT WITH SETTINGS PRESCRIBED, SATURATION AT 100%, SR ON THE MONITOR, HR IS 65. DORETHA PICC LINE IN PLACE, ALL HUBS PATENT AND FLUSHING WELL, NO S/S OF INFECTION OR BLEEDING. NOTED GTUBE INTACT POSITIVE PLACEMENT NOTED, NO RESIDUAL, WITH TUBE FEEDING OF JEVITY AT 50 ML/HR. HUNG CATHETER DRAINING TO A CLEAR, YELLOW OUTPUT. GENERALIZED EDEMA NOTED. SAFETY MEASURES IMPLEMENTED. PATIENT BED ALARM IS ON. HEAD OF BED ELEVATED. BED IS LOCKED, IN LOWEST POSITION AND SIDE RAILS UP. CALL LIGHT WITHIN REACH OF THE PATIENT. WILL CONTINUE TO MONITOR AND REASSESS FOR ANY CHANGES. Addendum: 03/18/22 at 0210 by KOTA MCCORMICK RN WRONG TIMED DOCUMENTENTRY FOR 03/17/2022 2100
--- NOTE | 2022-03-17 03:41 | NUR ---
RN Note Pt refused to be turned and repositioned, refused to be cleaned and have wound care done.
[2022-03-17 04:00] VITALS: BP 133/74
[2022-03-17] MEDS: ACETAMINOPHEN 650 MG/20.3 ML UDC NG PRN ×2 (04:08→19:43)
--- NOTE | 2022-03-17 04:09 | NUR ---
RN Note Pt noted to have temperature of 100.4. Pt administered Tylenol 650 mg via GT. Will monitor for effectiveness.
[2022-03-17] MEDS: HYDROCORTISONE SOD SUCCINATE 100 MG/2 ML VIAL IV SCH ×3 (04:23→21:30)
[2022-03-17] MEDS: MORPHINE SULFATE INJ 4 MG/ML DISP.SYRIN IV PRN ×4 (04:23→18:15)
--- NOTE | 2022-03-17 04:23 | NUR ---
RN Note Pt complains of 10/10 generalized pain and asks for morphine. Pt administered morphine. Will monitor for effectiveness.
[2022-03-17] MEDS: METOCLOPRAMIDE HCL 10 MG/2 ML VIAL IV SCH ×4 (05:28→23:46)
[2022-03-17 06:20] LABS: BASOPHILS % (AUTO) 0.1 % (0.0-2.0); EOSINOPHILS % (AUTO) 0.1 % (0.0-6.0); HEMATOCRIT 26 % (33-45); HEMOGLOBIN 8.3 g/dL (11.5-14.8); LYMPHOCYTES # (AUTO) 0.3 K/uL (0.8-4.8); LYMPHOCYTES % (AUTO) 4.4 % (20.0-44.0); MEAN CORPUSCULAR HGB CONC 33 g/dl (31.0-36.0); MEAN CORPUSCULAR VOLUME 88 fL (82-100); MONOCYTES # (AUTO) 0.2 K/uL (0.1-1.30); MONOCYTES % (AUTO) 2.5 % (2.0-12.0); NEUTROPHILS # (AUTO) 5.8 K/uL (1.8-8.9); NEUTROPHILS % (AUTO) 92.9 % (43.0-81.0); PLATELET COUNT (AUTO) 132 K/uL (150-450); RED BLOOD CELL COUNT(AUTO) 2.88 MIL/uL (4.0-5.2); WHITE BLOOD COUNT (AUTO) 6.3 K/uL (4.3-11.0)
--- NOTE | 2022-03-17 06:31 | NUR ---
supervisor chemical Closing Note Pt remains in bed, awake, non-verbal but is able to mouth what she needs and use pantomime. Pt remains on same vent settings, tolerated vent settings well; pt showed no s/s of resp distress, non-labored and equal breathing, no SOB or cough. Attached to external monitor, pt was SR-ST with HR ranging from 98-114. LLQ colostomy remains intact and patent; no s/s of necrosis; pt refused to change whole pouch and for her ostomy to be cleaned and only allowed to empty her pouch; had output of 225 ml. Claros intact and patent, draining clear and yellow urine; had output of 600 ml. GT dressing is C/D/I with Jevity running at 50 ml/hr; no residual throughout the whole shift. DORETHA PICC line is intact and patent; flushes easily with no resistance; no fluids/meds running through it. Bed in lowest position, call light within reach, side rails up x3. Will continue to monitor throughout the night. Addendum: 03/17/22 at 0641 by PRINCESS LELE SUTTON [facility].
--- NOTE | 2022-03-17 07:33 | NUR ---
it applications analyst Opening Note Patient remains in bed, awake, non-verbal but is able to mouth what she needs and use pantomime. Patient on ventilator, tolerated vent settings well; no signs or symptoms of respiratory distress, non-labored and equal breathing, no Shortness Of Breath or cough. Attached to external monitor. Left Lower Quadrant colostomy remains intact and patent; no signs or symptoms of necrosis. Claros intact and patent, draining clear and yellow urine. Gastric Tube dressing is intact with Jevity running at 50 ml/hr. Left Upper Arm PICC line is intact and patent; flushes easily with no resistance; no fluids/meds running through it. Bed in lowest position, call light within reach, side rails up x3. Will continue plan of care and anticipate needs.
[2022-03-17 07:41] LABS: CALCIUM, SERUM 7.6 mg/dL (8.5-10.1); CREATININE 0.5 mg/dL (0.6-1.3); POTASSIUM 3.3 mmol/L (3.5-5.1)
[2022-03-17 08:00] VITALS: BP 158/80
[2022-03-17] MEDS: MIDODRINE HCL (5MG) 5 MG TABLET NG SCH ×3 (09:00→17:00)
[2022-03-17] MEDS: HYDROGEL DRESSING 90 GM TUBE TP SCH (09:00)
--- NOTE | 2022-03-17 09:00 | NUR ---
PATIENT REFUSED WOUND CARE. EXPLAINED BENEFITS OF CARING FOR HER WOUNDS. PATIENT STILL REFUSED. WILL CONTINUE PLAN OF CARE AND ANTICIPATE NEEDS.
[2022-03-17] MEDS: ZINC SULFATE 220 MG CAPSULE NG SCH (09:26)
[2022-03-17] MEDS: MULTIVITAMINS,THERAGRAN 1 UDTAB TABLET GT SCH (09:26)
[2022-03-17] MEDS: FUROSEMIDE 40 MG/4 ML VIAL IV SCH (09:26)
[2022-03-17] MEDS: ASCORBIC ACID 500 MG TABLET NG SCH (09:27)
[2022-03-17] MEDS: PANTOPRAZOLE 40 MG/PACK PACK GT SCH (09:27)
[2022-03-17] MEDS: FOLIC ACID 1 MG TABLET PO SCH (09:27)
[2022-03-17] MEDS: GABAPENTIN 100 MG CAPSULE PO SCH ×2 (09:27→17:27)
[2022-03-17] MEDS: FLUDROCORTISONE 0.1 MG TABLET PO SCH ×2 (09:27→17:27)
[2022-03-17] MEDS: DOCUSATE SODIUM LIQ 100 MG/10 ML UDC GT SCH ×2 (09:27→21:30)
[2022-03-17] MEDS: CHLORHEXIDINE GLUCONATE 15 ML UDC MM SCH ×2 (09:29→17:27)
[2022-03-17] MEDS: PROSOURCE / PROSTAT (PYXIS) 30 ML UDC PO SCH ×3 (09:43→17:26)
[2022-03-17] MEDS ORDERED: POTASSIUM CHLORIDE 20 MEQ POWDER PACKET GT SCH (10:00)
[2022-03-17 12:00] VITALS: BP 158/80
[2022-03-17] MEDS: FLUCONAZOLE (100 MG) 100 MG TABLET PO SCH (13:05)
[2022-03-17 16:00] VITALS: BP 150/92
--- NOTE | 2022-03-17 18:35 | NUR ---
staff readiness officer Opening Note Patient remains in bed, awake, non-verbal but is able to mouth what she needs and use pantomime. Patient on ventilator, tolerated vent settings well; no signs or symptoms of respiratory distress, non-labored and equal breathing, no Shortness Of Breath or cough. Attached to external monitor. Left Lower Quadrant colostomy remains intact and patent; no signs or symptoms of necrosis. Claros intact and patent, draining clear and yellow urine. Gastric Tube dressing is intact with Jevity running at 50 ml/hr. Left Upper Arm PICC line is intact and patent; flushes easily with no resistance; no fluids/meds running through it. All due medications given, kept clean and dry throughout shift. Bed in lowest position, call light within reach, side rails up x3. Will endorse to weight shifter RN for continuity of care.. Addendum: 03/17/22 at 1837 by NOAH CONTRERAS RN Header should read "staff readiness officer Closing Note"
--- NOTE | 2022-03-17 19:10 | NUR ---
RN NOTE RECEIVED PATIENT IN BED, AO X 3, IN NO ACUTE DISTRESS AT THIS TIME. ON TRACH TO MECHANICAL VENT WITH SETTINGS PRESCRIBED, SATURATION AT 100%, SR ON THE MONITOR, HR IS 65. DORETHA PICC LINE IN PLACE, ALL HUBS PATENT AND FLUSHING WELL, NO S/S OF INFECTION OR BLEEDING. NOTED GTUBE INTACT POSITIVE PLACEMENT NOTED, NO RESIDUAL, WITH TUBE FEEDING OF JEVITY AT 50 ML/HR. HUNG CATHETER DRAINING TO A CLEAR, YELLOW OUTPUT. GENERALIZED EDEMA NOTED. SAFETY MEASURES IMPLEMENTED. PATIENT BED ALARM IS ON. HEAD OF BED ELEVATED. BED IS LOCKED, IN LOWEST POSITION AND SIDE RAILS UP. CALL LIGHT WITHIN REACH OF THE PATIENT. WILL CONTINUE TO MONITOR AND REASSESS FOR ANY CHANGES.
[2022-03-17 20:00] VITALS: BP 150/83
[2022-03-17] MEDS: LORAZEPAM INJ 2 MG/ML VIAL IV PRN (20:42)
[2022-03-18] VITALS (7 sets, daily range): BP systolic 142–163; BP diastolic 77–85
[2022-03-18] MEDS: IPRATROPIUM NEB FS 0.5 MG/2.5 ML AMPUL.NEB NEB SCH ×4 (01:01→19:33)
[2022-03-18] MEDS: ALBUTEROL HALF STRENGTH 1.25 MG/3 ML VIAL.NEB NEB SCH ×4 (01:01→19:33)
[2022-03-18] MEDS: MORPHINE SULFATE INJ 4 MG/ML DISP.SYRIN IV PRN ×3 (01:06→19:35)
[2022-03-18] MEDS: JEVITY 1.2 CAL 1,000 ML BOTTLE GT PRN (05:37)
[2022-03-18] MEDS: HYDROCORTISONE SOD SUCCINATE 100 MG/2 ML VIAL IV SCH ×3 (05:37→20:54)
[2022-03-18] MEDS: METOCLOPRAMIDE HCL 10 MG/2 ML VIAL IV SCH ×4 (05:37→23:49)
[2022-03-18 06:41] LABS: BASOPHILS % (AUTO) 0.1 % (0.0-2.0); HEMATOCRIT 27 % (33-45); LYMPHOCYTES # (AUTO) 0.2 K/uL (0.8-4.8); LYMPHOCYTES % (AUTO) 3.3 % (20.0-44.0); MEAN CORPUSCULAR HGB CONC 33 g/dl (31.0-36.0); MEAN CORPUSCULAR VOLUME 89 fL (82-100); MONOCYTES # (AUTO) 0.1 K/uL (0.1-1.30); NEUTROPHILS % (AUTO) 94.6 % (43.0-81.0); PLATELET COUNT (AUTO) 134 K/uL (150-450); RED BLOOD CELL COUNT(AUTO) 3.05 MIL/uL (4.0-5.2); WHITE BLOOD COUNT (AUTO) 7.4 K/uL (4.3-11.0)
[2022-03-18 07:27] LABS: CALCIUM, SERUM 7.9 mg/dL (8.5-10.1); CREATININE 0.5 mg/dL (0.6-1.3); POTASSIUM 3.3 mmol/L (3.5-5.1)
--- NOTE | 2022-03-18 07:40 | NUR ---
RN NOTE PT RECEIVED ASLEEP IN BED, RESPONSIVE TO STIMULI. TRACH IN PLACE, WITH VENT SETTINGS TOLERATED WELL. GT IN PLACE WITH FEEDING JEVITY 1.2 @50CC/HR. ASPIRATION PREC MAINTAINED. DORETHA PICC IN PLACE AND PATENT. SAFETY MEASURES FOLLOWED. WILL CONTINUE TO MONITOR.
[2022-03-18] MEDS: MIDODRINE HCL (5MG) 5 MG TABLET NG SCH ×3 (09:00→17:00)
[2022-03-18] MEDS: PANTOPRAZOLE 40 MG/PACK PACK GT SCH (09:21)
[2022-03-18] MEDS: ZINC SULFATE 220 MG CAPSULE NG SCH (09:22)
[2022-03-18] MEDS: GABAPENTIN 100 MG CAPSULE PO SCH ×2 (09:22→17:58)
[2022-03-18] MEDS: FLUCONAZOLE (100 MG) 100 MG TABLET PO SCH (09:22)
[2022-03-18] MEDS: FOLIC ACID 1 MG TABLET PO SCH (09:22)
[2022-03-18] MEDS: FUROSEMIDE 40 MG/4 ML VIAL IV SCH (09:23)
[2022-03-18] MEDS: FLUDROCORTISONE 0.1 MG TABLET PO SCH ×2 (09:23→17:58)
[2022-03-18] MEDS: CHLORHEXIDINE GLUCONATE 15 ML UDC MM SCH ×2 (09:23→17:59)
[2022-03-18] MEDS: MULTIVITAMINS,THERAGRAN 1 UDTAB TABLET GT SCH (09:23)
[2022-03-18] MEDS: ASCORBIC ACID 500 MG TABLET NG SCH (09:23)
[2022-03-18] MEDS: LORAZEPAM INJ 2 MG/ML VIAL IV PRN ×2 (09:37→22:25)
[2022-03-18] MEDS: DOCUSATE SODIUM LIQ 100 MG/10 ML UDC GT SCH ×2 (09:54→20:54)
[2022-03-18] MEDS: PROSOURCE / PROSTAT (PYXIS) 30 ML UDC PO SCH ×3 (09:55→17:59)
[2022-03-18] MEDS ORDERED: POTASSIUM CHLORIDE 20 MEQ POWDER PACKET NG SCH ×2 (11:30→13:00)
[2022-03-18] MEDS: HYDROGEL DRESSING 90 GM TUBE TP SCH (13:04)
[2022-03-18] MEDS: IV D5W 1,000 ML IV PRN (15:21)
--- NOTE | 2022-03-18 19:00 | NUR ---
RN NOTE ECEIVED PATIENT IN BED, AO X 3, MOUTHS WORDS, IN NO ACUTE DISTRESS AT THIS TIME. ON TRACH TO MECHANICAL VENT WITH SETTINGS PRESCRIBED, SATURATION AT 100%, SR ON THE MONITOR, HR IS 86. DORETHA PICC LINE IN PLACE, ALL HUBS PATENT AND FLUSHING WELL, NO S/S OF INFECTION OR BLEEDING, D5W INFUSING AT 100 ML/HR. NOTED GTUBE INTACT POSITIVE PLACEMENT NOTED, 15ML RESIDUAL, WITH TUBE FEEDING OF JEVITY AT 50 ML/HR. COLOSTOMY INTACT, DRAINING TO A BROWN, LIQUID OUTPUT. HUNG CATHETER DRAINING TO A CLEAR, YELLOW OUTPUT. GENERALIZED EDEMA NOTED. SAFETY MEASURES IMPLEMENTED. PATIENT BED ALARM IS ON. HEAD OF BED ELEVATED. BED IS LOCKED, IN LOWEST POSITION AND SIDE RAILS UP. CALL LIGHT WITHIN REACH OF THE PATIENT. WILL CONTINUE TO MONITOR AND REASSESS FOR ANY CHANGES.
--- NOTE | 2022-03-18 19:15 | NUR ---
RN NOTE PT RESTING IN BED, AWAKE AND RESPONSIVE TO STIMULI. TRACH IN PLACE, WITH VENT SETTINGS TOLERATED WELL. GT IN PLACE WITH FEEDING JEVITY 1.2 @50CC/HR. ASPIRATION PREC MAINTAINED. DORETHA PICC IN PLACE AND PATENT. SAFETY MEASURES FOLLOWED. DUE MEDS GIVEN, ON PAIN MGT WITH GOOD EFFECT. AM/PM CARE DONE. WILL CONTINUE TO MONITOR AND ENDORSE TO NEXT SHIFT.
[2022-03-18] MEDS: ERGOCALCIFEROL (VITAMIN D 2) 50,000 UNIT CAPSULE NG SCH (20:54)
[2022-03-19] VITALS: BP 137/81
[2022-03-19] MEDS: IPRATROPIUM NEB FS 0.5 MG/2.5 ML AMPUL.NEB NEB SCH ×4 (02:00→18:55)
[2022-03-19] MEDS: ALBUTEROL HALF STRENGTH 1.25 MG/3 ML VIAL.NEB NEB SCH ×4 (02:00→18:55)
[2022-03-19 04:00] VITALS: BP 144/80
[2022-03-19] MEDS: MORPHINE SULFATE INJ 4 MG/ML DISP.SYRIN IV PRN ×4 (04:31→21:47)
[2022-03-19] MEDS: HYDROCORTISONE SOD SUCCINATE 100 MG/2 ML VIAL IV SCH ×3 (04:31→21:46)
[2022-03-19] MEDS: METOCLOPRAMIDE HCL 10 MG/2 ML VIAL IV SCH ×4 (04:31→23:57)
--- NOTE | 2022-03-19 04:48 | NUR ---
RT Patient received on vent: AC 22 425 40% +5. Breathing tx tolerated well with no adverse reaction. Suctioned small amount of thick yellowish blood tinged secretions. Trach patent and secure. Vent plugged into red outlet with alarms on and audible. Ambu bag and back up trach at bedside. No SOB or respiratory distress noted at this time.
[2022-03-19] MEDS: IV D5W 1,000 ML IV PRN ×2 (05:17→15:09)
--- NOTE | 2022-03-19 07:30 | NUR ---
RN OPENING NOTES RECEIVED PATIENT IN BED, A/O X 3, MOUTH WORDS. NO SIGNS OF ACUTE DISTRESS NOTED. ON TRACH TO MECHANICAL VENT WITH SETTINGS PRESCRIBED, TOLERATING WELL. SATURATION AT 100%, ON TELE MONITOR SHOWING SINUS RHYTHM, HR IS 89. WITH DORETHA PICC LINE INTACT AND PATENT, WITH D5W @100 ML/HR RUNNING. NOTED WITH G-TUBE INTACT POSITIVE PLACEMENT NOTED, 5ML RESIDUAL, WITH TUBE FEEDING OF JEVITY AT 50 ML/HR, TOLERATING WELL. HUNG CATHETER DRAINING TO A CLEAR, YELLOW OUTPUT. GENERALIZED EDEMA NOTED. SAFETY MEASURES MAINTAINED. BED ALARM ON, HEAD OF BED ELEVATED, BED LOCKED AND IN LOWEST POSITION AND SIDE RAILS UP. CALL LIGHT WITHIN REACH OF THE PATIENT. WILL CONTINUE TO MONITOR PATIENT.
[2022-03-19] MEDS: LORAZEPAM INJ 2 MG/ML VIAL IV PRN ×2 (07:43→16:53)
[2022-03-19 07:55] LABS: BASOPHILS % (AUTO) 0.1 % (0.0-2.0); HEMATOCRIT 27 % (33-45); HEMOGLOBIN 8.5 g/dL (11.5-14.8); LYMPHOCYTES # (AUTO) 0.3 K/uL (0.8-4.8); MEAN CORPUSCULAR HGB CONC 32 g/dl (31.0-36.0); MEAN CORPUSCULAR VOLUME 91 fL (82-100); MONOCYTES # (AUTO) 0.2 K/uL (0.1-1.30); NEUTROPHILS # (AUTO) 6.2 K/uL (1.8-8.9); NEUTROPHILS % (AUTO) 91.9 % (43.0-81.0); PLATELET COUNT (AUTO) 127 K/uL (150-450); RED BLOOD CELL COUNT(AUTO) 2.96 MIL/uL (4.0-5.2); WHITE BLOOD COUNT (AUTO) 6.7 K/uL (4.3-11.0)
[2022-03-19 08:00] VITALS: BP 150/87
[2022-03-19 08:45] LABS: CALCIUM, SERUM 7.4 mg/dL (8.5-10.1); CREATININE 0.5 mg/dL (0.6-1.3)
[2022-03-19] MEDS: MIDODRINE HCL (5MG) 5 MG TABLET NG SCH ×3 (09:00→16:54)
[2022-03-19] MEDS: CHLORHEXIDINE GLUCONATE 15 ML UDC MM SCH ×2 (09:02→16:53)
[2022-03-19] MEDS: DOCUSATE SODIUM LIQ 100 MG/10 ML UDC GT SCH ×2 (09:02→21:46)
[2022-03-19] MEDS: FUROSEMIDE 40 MG/4 ML VIAL IV SCH (09:02)
[2022-03-19] MEDS: PANTOPRAZOLE 40 MG/PACK PACK GT SCH (09:02)
[2022-03-19] MEDS: MULTIVITAMINS,THERAGRAN 1 UDTAB TABLET GT SCH (09:03)
[2022-03-19] MEDS: ZINC SULFATE 220 MG CAPSULE NG SCH (09:03)
[2022-03-19] MEDS: FLUDROCORTISONE 0.1 MG TABLET PO SCH ×2 (09:03→16:53)
[2022-03-19] MEDS: GABAPENTIN 100 MG CAPSULE PO SCH ×2 (09:03→16:53)
[2022-03-19] MEDS: FOLIC ACID 1 MG TABLET PO SCH (09:03)
[2022-03-19] MEDS: FLUCONAZOLE (100 MG) 100 MG TABLET PO SCH (09:03)
[2022-03-19] MEDS: ASCORBIC ACID 500 MG TABLET NG SCH (09:03)
[2022-03-19] MEDS: HYDROGEL DRESSING 90 GM TUBE TP SCH (09:04)
[2022-03-19] MEDS: PROSOURCE / PROSTAT (PYXIS) 30 ML UDC PO SCH ×3 (09:04→17:03)
[2022-03-19] MEDS: JEVITY 1.2 CAL 1,000 ML BOTTLE GT PRN (09:34)
[2022-03-19 12:00] VITALS: BP 137/77
[2022-03-19] MEDS: POTASSIUM CHLORIDE 20 MEQ POWDER PACKET NG SCH ×3 (12:05→14:17)
[2022-03-19 16:00] VITALS: BP 126/77
--- NOTE | 2022-03-19 18:41 | NUR ---
RN CLOSING NOTES PATIENT ASLEEP IN BED, EASILY AROUSED, MOUTHS WORDS. NO SIGNS OF ACUTE DISTRESS NOTED. REMAINS ON TRACH TO MECHANICAL VENT WITH SETTINGS TOLERATED WELL. SATURATION AT 98%, ON TELE MONITOR SHOWING SINUS RHYTHM, HR @ 89. WITH DORETHA PICC LINE INTACT AND PATENT, WITH D5W @100 ML/HR RUNNING. NOTED WITH G-TUBE INTACT POSITIVE PLACEMENT NOTED, NO RESIDUAL, WITH TUBE FEEDING OF JEVITY AT 50 ML/HR, TOLERATING WELL. HUNG CATHETER DRAINING TO A CLEAR, YELLOW OUTPUT. COLOSTOMY BAG INTACT. SAFETY MEASURES MAINTAINED. BED ALARM ON, HEAD OF BED ELEVATED, BED LOCKED AND IN LOWEST POSITION AND SIDE RAILS UP. CALL LIGHT WITHIN REACH OF THE PATIENT. WILL ENDORSE TO NEXT SHIFT FOR CONTINUITY OF CARE.
[2022-03-19 20:00] VITALS: BP 142/78
--- NOTE | 2022-03-19 21:14 | NUR ---
facility engineer opening Note Pt received in bed, awake and alert, able to mouth what she needs. Pt is on vent with portex #8, AC 22, TV 425, FiO2 40%, PEEP 5; currently tolerating vent settings well with no s/s of resp distress, no SOB or cough, non-labored and equal breathing; current O2sat of 100%. Pt attached to external monitor SR with HR of 97. Colostomy located at LLQ, intact and patent with no s/s of leaking; ostomy is pink and moist, no s/s of necrosis draining liquid and brown stool. Pt has PICC line on [facility] D5W running at 100 ml/hr. Bed in lowest position, call light within reach, side rails up x3. Will continue to monitor throughout the night.
--- NOTE | 2022-03-19 21:47 | NUR ---
RN Note Pt complains of 10/10 generalized pain and asks for morphine. Pt administered morphine 4 mg. Will monitor for effectiveness.
[2022-03-20] VITALS: BP 146/72
[2022-03-20] MEDS: ACETAMINOPHEN 650 MG/20.3 ML UDC NG PRN ×2 (00:01→13:20)
--- NOTE | 2022-03-20 00:22 | NUR ---
RN Note Pt noted to have temperature of 99.8. Pt administered Tylenol 650 mg via GT.
[2022-03-20] MEDS: ALBUTEROL HALF STRENGTH 1.25 MG/3 ML VIAL.NEB NEB SCH ×4 (01:08→20:02)
[2022-03-20] MEDS: IPRATROPIUM NEB FS 0.5 MG/2.5 ML AMPUL.NEB NEB SCH ×4 (01:08→20:02)
[2022-03-20] MEDS: MORPHINE SULFATE INJ 4 MG/ML DISP.SYRIN IV PRN ×2 (01:57→08:47)
--- NOTE | 2022-03-20 01:58 | NUR ---
RN Note Pt complains of a 9/10 generalized pain and requests for morphine. Pt administered morphine 4 mg. Will monitor for effectiveness.
[2022-03-20] MEDS: LORAZEPAM INJ 2 MG/ML VIAL IV PRN ×2 (02:37→13:10)
[2022-03-20 04:00] VITALS: BP 149/84
[2022-03-20] MEDS: IV D5W 1,000 ML IV PRN ×2 (04:18→23:56)
[2022-03-20] MEDS: HYDROCORTISONE SOD SUCCINATE 100 MG/2 ML VIAL IV SCH ×3 (04:20→17:22)
--- NOTE | 2022-03-20 04:21 | NUR ---
RN Note Pt refused to be turned and repositioned; refused to be cleaned and have wound care done and refused to have ostomy pouch changed.
[2022-03-20] MEDS: JEVITY 1.2 CAL 1,000 ML BOTTLE GT PRN (05:03)
[2022-03-20] MEDS: METOCLOPRAMIDE HCL 10 MG/2 ML VIAL IV SCH ×4 (05:10→23:42)
--- NOTE | 2022-03-20 05:38 | NUR ---
PATIENT RECEIVED ON TRACH TO VENT WITH SETTINGS OF AC 22, 425 Vt, 40%, +5. SUCTIONED FOR MINIMAL, THIN, YELLOW SECRETIONS. GIVEN IN-LINE TREATMENTS WITH NO ADVERSE REACTIONS. AMBU BAG AT BEDSIDE. VENT AND PULSE OXIMETER ALARMS AUDIBLE AND VISIBLE. VENT PLUGGED INTO RED OUTLET. Addendum: 03/20/22 at 0539 by BJ DUQUE RT Amended: Links added.
--- NOTE | 2022-03-20 06:28 | NUR ---
TANKER SERVICEMAN CLOSING NOTE PT REMAINS IN BED, AWAKE, A&O X4, NON-VERBAL BUT ABLE TO MAKE NEEDS KNOWN BY MOUTHING WORDS; PT DID NOT SLEEP LAST NIGHT. PT REMAINS ON SAME VENT SETTINGS; TOLERATING VENT SETTINGS WELL; PT SHOWED NO S/S OF RESP DISTRESS, NO SOB, NON-LABORED AND EQUAL BREATHING; O2SAT RANGED FROM 97%-98% ATTACHED TO EXTERNAL MONITOR AND WAS ST-SR; HR RANGED FROM 97-108 LAST NIGHT. GT DRESSING C/D/I WITH MINIMAL RESIDUAL OF 3 ML; JEVITY RUNNING AT 50 ML/HR. DORETHA PICC LINE INTACT AND PATENT; FLUSHES EASILY WITH NO RESISTANCE; D5W RUNNING AT 100 ML/HR. HUNG INTACT AND PATENT, DRAINING CLEAR AND YELLOW URINE WITH OUTPUT OF 575 ML. OSTOMY INTACT AND PATENT, NO S/S OF LEAKING; OSTOMY IS PINK AND MOIST WITH NO SIGNS OF NECROSIS; TOOK OUT 350 ML OF STOOL. BED IN LOWEST POSITION, CALL LIGHT WITHIN REACH, SIDE RAILS UP X3. WILL ENDORSE TO DAYSHIFT NURSE TO CONTINUE CARE.
[2022-03-20 06:29] LABS: HEMATOCRIT 27 % (33-45); HEMOGLOBIN 8.7 g/dL (11.5-14.8); LYMPHOCYTES # (AUTO) 0.4 K/uL (0.8-4.8); LYMPHOCYTES % (AUTO) 5.7 % (20.0-44.0); MEAN CORPUSCULAR HGB CONC 33 g/dl (31.0-36.0); MEAN CORPUSCULAR VOLUME 90 fL (82-100); MONOCYTES # (AUTO) 0.2 K/uL (0.1-1.30); MONOCYTES % (AUTO) 2.5 % (2.0-12.0); NEUTROPHILS # (AUTO) 6.2 K/uL (1.8-8.9); NEUTROPHILS % (AUTO) 91.8 % (43.0-81.0); PLATELET COUNT (AUTO) 139 K/uL (150-450); RED BLOOD CELL COUNT(AUTO) 2.97 MIL/uL (4.0-5.2); WHITE BLOOD COUNT (AUTO) 6.7 K/uL (4.3-11.0)
[2022-03-20 07:08] LABS: CALCIUM, SERUM 7.5 mg/dL (8.5-10.1); CREATININE 0.5 mg/dL (0.6-1.3); POTASSIUM 3.7 mmol/L (3.5-5.1)
--- NOTE | 2022-03-20 07:29 | NUR ---
HAND COPER OPENING NOTE PATIENT IN BED, AWAKE, ALERT AND ORIENTED X4, NON-VERBAL BUT ABLE TO MAKE NEEDS KNOWN BY MOUTHING WORDS. PATIENT REMAINS ON SAME VENT SETTINGS; TOLERATING VENT SETTINGS WELL; SHOWING NO SIGNS OR SYMPTOMS OF RESPIRATORY DISTRESS, NO SHORTNESS OF BREATH, NON-LABORED AND EQUAL BREATHING. ATTACHED TO EXTERNAL MONITOR READING SINUS RHYTHM. GASTRIC TUBE DRESSING INTACT. ASPIRATION OF GASTRIC TUBE SHOWS MINIMAL RESIDUAL; JEVITY RUNNING AT 50 ML/HR. LEFT UPPER ARM PICC LINE INTACT AND PATENT; FLUSHES EASILY WITH NO RESISTANCE; D5W RUNNING AT 100 ML/HR. HUNG INTACT AND PATENT, DRAINING CLEAR AND YELLOW URINE. OSTOMY INTACT AND PATENT, NO SIGNS OR SYMPTOMS OF LEAKING; OSTOMY IS PINK AND MOIST WITH NO SIGNS OF NECROSIS. BED IN LOWEST POSITION, CALL LIGHT WITHIN REACH, SIDE RAILS UP X3. WILL CONTINUE PLAN OF CARE AND ANTICIPATE NEEDS.
[2022-03-20 08:00] VITALS: BP 160/81
[2022-03-20] MEDS: DOCUSATE SODIUM LIQ 100 MG/10 ML UDC GT SCH ×2 (08:47→21:00)
[2022-03-20] MEDS: FLUCONAZOLE (100 MG) 100 MG TABLET PO SCH (08:47)
[2022-03-20] MEDS: PANTOPRAZOLE 40 MG/PACK PACK GT SCH (08:48)
[2022-03-20] MEDS: ZINC SULFATE 220 MG CAPSULE NG SCH (08:48)
[2022-03-20] MEDS: FOLIC ACID 1 MG TABLET PO SCH (08:48)
[2022-03-20] MEDS: MULTIVITAMINS,THERAGRAN 1 UDTAB TABLET GT SCH (08:48)
[2022-03-20] MEDS: FLUDROCORTISONE 0.1 MG TABLET PO SCH ×2 (08:48→17:22)
[2022-03-20] MEDS: GABAPENTIN 100 MG CAPSULE PO SCH ×2 (08:48→17:22)
[2022-03-20] MEDS: ASCORBIC ACID 500 MG TABLET NG SCH (08:48)
[2022-03-20] MEDS: FUROSEMIDE 40 MG/4 ML VIAL IV SCH (08:49)
[2022-03-20] MEDS: CHLORHEXIDINE GLUCONATE 15 ML UDC MM SCH ×2 (08:49→17:22)
[2022-03-20] MEDS: MIDODRINE HCL (5MG) 5 MG TABLET NG SCH ×3 (08:49→17:00)
[2022-03-20] MEDS: HYDROGEL DRESSING 90 GM TUBE TP SCH (08:50)
[2022-03-20] MEDS: PROSOURCE / PROSTAT (PYXIS) 30 ML UDC PO SCH ×3 (08:50→17:23)
[2022-03-20 12:00] VITALS: BP 154/89
[2022-03-20] MEDS ORDERED: LORAZEPAM 0.5 MG TABLET PO PRN (15:30)
[2022-03-20 16:00] VITALS: BP 159/99
--- NOTE | 2022-03-20 19:06 | NUR ---
GREASE AND TALLOW PUMPER CLOSING NOTE PATIENT IN BED, SLEEPING, NON-VERBAL BUT ABLE TO MAKE NEEDS KNOWN BY MOUTHING WORDS. PATIENT REMAINS ON SAME VENT SETTINGS; TOLERATING VENT SETTINGS WELL; SHOWING NO SIGNS OR SYMPTOMS OF RESPIRATORY DISTRESS, NO SHORTNESS OF BREATH, NON-LABORED AND EQUAL BREATHING. ATTACHED TO EXTERNAL MONITOR READING SINUS STEFFANY AT 58 BEATS PER MINUTE. GASTRIC TUBE DRESSING INTACT. ASPIRATION OF GASTRIC TUBE SHOWS MINIMAL RESIDUAL; JEVITY RUNNING AT 50 ML/HR. LEFT UPPER ARM PICC LINE INTACT AND PATENT; FLUSHES EASILY WITH NO RESISTANCE; D5W RUNNING AT 100 ML/HR. HUNG INTACT AND PATENT, DRAINING CLEAR AND YELLOW URINE. OSTOMY INTACT AND PATENT, NO SIGNS OR SYMPTOMS OF LEAKING; OSTOMY IS PINK AND MOIST WITH NO SIGNS OF NECROSIS. BED IN LOWEST POSITION, CALL LIGHT WITHIN REACH, SIDE RAILS UP X3. WILL ENDORSE TO NIGHTSHIFT RN FOR CONTINUATION OF CARE.
[2022-03-20 20:00] VITALS: BP 167/88
[2022-03-20] MEDS: IV NS 0.9% 250 ML IV PRN (23:57)
[2022-03-21] VITALS: BP 174/95
[2022-03-21] MEDS: MORPHINE SULFATE INJ 4 MG/ML DISP.SYRIN IV PRN ×3 (00:36→13:46)
[2022-03-21] MEDS: JEVITY 1.2 CAL 1,000 ML BOTTLE GT PRN (01:40)
[2022-03-21] MEDS: IPRATROPIUM NEB FS 0.5 MG/2.5 ML AMPUL.NEB NEB SCH ×4 (01:48→20:00)
[2022-03-21] MEDS: ALBUTEROL HALF STRENGTH 1.25 MG/3 ML VIAL.NEB NEB SCH ×4 (01:48→20:00)
[2022-03-21] MEDS: LORAZEPAM INJ 2 MG/ML VIAL IV PRN ×3 (01:50→18:39)
[2022-03-21 04:00] VITALS: BP 146/92
[2022-03-21] MEDS: METOCLOPRAMIDE HCL 10 MG/2 ML VIAL IV SCH ×3 (06:05→17:08)
--- NOTE | 2022-03-21 06:12 | NUR ---
ALCON/RN PATIENT IS AWAKE, COMFORTABLE, NO SIGNS OF DISTRESS NOTE, HOB ELEVATED, G FEEDING INFUSING, CALL LIGHT IN REACH, ALL NEEDS ATTENDED AT THIS TIME, WILL CONTINUE TO MONITOR.
[2022-03-21 08:00] VITALS: BP 132/82
[2022-03-21] MEDS: PROSOURCE / PROSTAT (PYXIS) 30 ML UDC PO SCH ×3 (08:26→17:08)
[2022-03-21] MEDS: PANTOPRAZOLE 40 MG/PACK PACK GT SCH (08:26)
[2022-03-21] MEDS: FUROSEMIDE 40 MG/4 ML VIAL IV SCH (08:26)
[2022-03-21] MEDS: CHLORHEXIDINE GLUCONATE 15 ML UDC MM SCH ×2 (08:26→17:08)
[2022-03-21] MEDS: ASCORBIC ACID 500 MG TABLET NG SCH (08:28)
[2022-03-21] MEDS: FOLIC ACID 1 MG TABLET PO SCH (08:28)
[2022-03-21] MEDS: FLUDROCORTISONE 0.1 MG TABLET PO SCH ×2 (08:29→17:10)
[2022-03-21] MEDS: FLUCONAZOLE (100 MG) 100 MG TABLET PO SCH (08:29)
[2022-03-21] MEDS: MIDODRINE HCL (5MG) 5 MG TABLET NG SCH ×3 (08:29→17:00)
[2022-03-21] MEDS: GABAPENTIN 100 MG CAPSULE PO SCH ×2 (08:30→17:08)
[2022-03-21] MEDS: HYDROCODONE/APAP 10/325MG TABLET PO PRN (08:30)
[2022-03-21] MEDS: ZINC SULFATE 220 MG CAPSULE NG SCH (08:30)
[2022-03-21] MEDS: HYDROCORTISONE SOD SUCCINATE 100 MG/2 ML VIAL IV SCH ×2 (08:30→17:10)
[2022-03-21] MEDS: MULTIVITAMINS,THERAGRAN 1 UDTAB TABLET GT SCH (08:30)
[2022-03-21] MEDS: DOCUSATE SODIUM LIQ 100 MG/10 ML UDC GT SCH ×2 (08:31→20:14)
[2022-03-21] MEDS: HYDROGEL DRESSING 90 GM TUBE TP SCH (08:32)
[2022-03-21 12:00] VITALS: BP 121/71
[2022-03-21 15:14] LABS: EOSINOPHILS % (AUTO) 0.1 % (0.0-6.0); HEMATOCRIT 28 % (33-45); LYMPHOCYTES # (AUTO) 0.2 K/uL (0.8-4.8); LYMPHOCYTES % (AUTO) 1.8 % (20.0-44.0); MEAN CORPUSCULAR HGB CONC 32 g/dl (31.0-36.0); MEAN CORPUSCULAR VOLUME 90 fL (82-100); MONOCYTES # (AUTO) 0.1 K/uL (0.1-1.30); MONOCYTES % (AUTO) 1.3 % (2.0-12.0); NEUTROPHILS # (AUTO) 9.9 K/uL (1.8-8.9); NEUTROPHILS % (AUTO) 96.8 % (43.0-81.0); PLATELET COUNT (AUTO) 130 K/uL (150-450); RED BLOOD CELL COUNT(AUTO) 3.13 MIL/uL (4.0-5.2); WHITE BLOOD COUNT (AUTO) 10.3 K/uL (4.3-11.0)
[2022-03-21 15:52] LABS: CALCIUM, SERUM 7.1 mg/dL (8.5-10.1); CREATININE 0.3 mg/dL (0.6-1.3)
[2022-03-21 15:58] LABS: POTASSIUM 2.3 mmol/L (3.5-5.1)
[2022-03-21 16:00] VITALS: BP 128/83
--- NOTE | 2022-03-21 16:14 | NUR ---
RN NOTE SPOKE WITH DR. KATZ REGARDING PT POTASSIUM OF 2.3. PER DR. KATZ, ORDERED TOTAL OF 80 MEQ. POTASSIUM PACKET 40 MEQ VIA GT AND POTASSIUM VIA IV 40MEQ. ORDER NOTED.
[2022-03-21] MEDS: POTASSIUM CL. PREMIX PERIPHER. 50 ML IV SCH ×4 (16:24→20:14)
[2022-03-21] MEDS ORDERED: POTASSIUM CHLORIDE 20 MEQ POWDER PACKET GT SCH (17:00)
--- NOTE | 2022-03-21 18:44 | NUR ---
RN NOTE NO SIGNIFICANT CHANGES IN PT CONDITION DURING SHIFT. PT IS TRACH/VENT TOLERATING CURRENT SETTINGS WELL. NO SIGN OF DISTRESS. PT IS ABLE TO MOUTH WORDS. G-TUBE INTACT AND PATENT RUNNING JEVITY 1.2 @ 50 CC/HR. COLOSTOMY NOTED AND INTACT. LEFT UPPER ARM PICC LINE NOTED. LINE FLUSHED, PATENT, AND INTACT WITH NO INFILTRATION. PT POTASSIUM WAS 2.3. PER DR. KATZ, 80 MEQ TOTAL ADMIN DOSE WITH 40 BEING VIA G-TUBE AND OTHER 40 MEQ BEING VIA IV. 2ND POTASSIUM BAG CURRENTLY RUNNING VIA PICC. ALL SAFETY MEASURES IMPLEMENTED THROUGHOUT SHIFT. ALL DUE MEDS GIVEN ORDERED. WILL ENDORSE TO EVENING RN FOR JANES.
[2022-03-21 20:00] VITALS: BP 119/85
[2022-03-21] MEDS: IV D5W 1,000 ML IV PRN (20:15)
[2022-03-22] VITALS: BP 131/75
[2022-03-22] MEDS: METOCLOPRAMIDE HCL 10 MG/2 ML VIAL IV SCH ×5 (00:12→23:53)
[2022-03-22] MEDS: MORPHINE SULFATE INJ 4 MG/ML DISP.SYRIN IV PRN ×3 (00:56→09:09)
[2022-03-22] MEDS: IPRATROPIUM NEB FS 0.5 MG/2.5 ML AMPUL.NEB NEB SCH ×4 (01:46→19:58)
[2022-03-22] MEDS: ALBUTEROL HALF STRENGTH 1.25 MG/3 ML VIAL.NEB NEB SCH ×4 (01:46→19:58)
[2022-03-22] MEDS: JEVITY 1.2 CAL 1,000 ML BOTTLE GT PRN ×2 (02:08→19:08)
[2022-03-22] MEDS: LORAZEPAM INJ 2 MG/ML VIAL IV PRN ×3 (02:08→23:53)
[2022-03-22 04:00] VITALS: BP 137/85
--- NOTE | 2022-03-22 06:39 | NUR ---
RN CLOSING NOTE PATIENT IS RESTING IN BED. A/OX4. ON MECHANICAL VENT. NO RESP DISTRESS. PRN MORPHINE GIVEN FOR PAIN. PRN ATIVAN GIVEN. SINUS RHYTHM ON THE MONITOR. HUNG DRAINING TO GRAVITY, YELLOW WITH SEDIMENT AND CLOUDY. COLOSTOMY BAG, OUTPUT ORANGE AND THIN. COLOSTOMY BAG CHANGED. WOUND CARE DONE. GTUBE FEEDING RUNNING JEVITY @50ML NO RESIDUAL. D5W@100. FINISHED K REPLACEMENT. BED IS LOW AND LOCKED, HOB ELEVATED IN SEMI PERALTA, SIDE RAILS UP, CALL LIGHT WITHIN REACH
[2022-03-22 06:47] LABS: EOSINOPHILS % (AUTO) 0.4 % (0.0-6.0); HEMATOCRIT 28 % (33-45); HEMOGLOBIN 9.1 g/dL (11.5-14.8); LYMPHOCYTES # (AUTO) 0.3 K/uL (0.8-4.8); LYMPHOCYTES % (AUTO) 3.3 % (20.0-44.0); MEAN CORPUSCULAR HGB CONC 33 g/dl (31.0-36.0); MEAN CORPUSCULAR VOLUME 90 fL (82-100); MONOCYTES # (AUTO) 0.1 K/uL (0.1-1.30); NEUTROPHILS # (AUTO) 8.5 K/uL (1.8-8.9); NEUTROPHILS % (AUTO) 95.3 % (43.0-81.0); PLATELET COUNT (AUTO) 128 K/uL (150-450); WHITE BLOOD COUNT (AUTO) 8.9 K/uL (4.3-11.0)
--- NOTE | 2022-03-22 07:24 | NUR ---
RN OPENING NOTE PATIENT IS RESTING IN BED. A/OX4. ON MECHANICAL VENT. NO RESP DISTRESS. SINUS RHYTHM ON MONITOR. HUNG DRAINING TO GRAVITY, YELLOW WITH SEDIMENT AND CLOUDY. COLOSTOMY BAG, OUTPUT ORANGE AND THIN. GTUBE FEEDING INFUSING JEVITY @50ML. D5W@100. SAFETY MEASURES IN PLACE. BED IS LOW AND LOCKED, HOB ELEVATED IN SEMI PERALTA, SIDE RAILS UP, CALL LIGHT WITHIN REACH. WILL CONTINUE TO MONITOR.
[2022-03-22 08:00] VITALS: BP 114/76
[2022-03-22 08:01] LABS: CALCIUM, SERUM 7.2 mg/dL (8.5-10.1); CREATININE 0.3 mg/dL (0.6-1.3); MAGNESIUM 1.4 mg/dL (1.8-2.4); PHOSPHORUS 1.9 mg/dL (2.5-4.9)
[2022-03-22 08:21] LABS: POTASSIUM 2.8 mmol/L (3.5-5.1)
[2022-03-22] MEDS: DOCUSATE SODIUM LIQ 100 MG/10 ML UDC GT SCH ×2 (09:08→20:13)
[2022-03-22] MEDS: GABAPENTIN 100 MG CAPSULE PO SCH ×2 (09:09→16:39)
[2022-03-22] MEDS: CHLORHEXIDINE GLUCONATE 15 ML UDC MM SCH ×2 (09:09→16:39)
[2022-03-22] MEDS: PANTOPRAZOLE 40 MG/PACK PACK GT SCH (09:09)
[2022-03-22] MEDS: ASCORBIC ACID 500 MG TABLET NG SCH (09:10)
[2022-03-22] MEDS: FUROSEMIDE 40 MG/4 ML VIAL IV SCH (09:10)
[2022-03-22] MEDS: MULTIVITAMINS,THERAGRAN 1 UDTAB TABLET GT SCH (09:10)
[2022-03-22] MEDS: HYDROCORTISONE SOD SUCCINATE 100 MG/2 ML VIAL IV SCH ×2 (09:10→16:42)
[2022-03-22] MEDS: MIDODRINE HCL (5MG) 5 MG TABLET NG SCH ×3 (09:11→16:41)
[2022-03-22] MEDS: ZINC SULFATE 220 MG CAPSULE NG SCH (09:11)
[2022-03-22] MEDS: FLUDROCORTISONE 0.1 MG TABLET PO SCH ×2 (09:11→16:40)
[2022-03-22] MEDS: FLUCONAZOLE (100 MG) 100 MG TABLET PO SCH (09:12)
[2022-03-22] MEDS: FOLIC ACID 1 MG TABLET PO SCH (09:12)
[2022-03-22] MEDS: PROSOURCE / PROSTAT (PYXIS) 30 ML UDC PO SCH ×3 (09:13→16:43)
[2022-03-22] MEDS: HYDROGEL DRESSING 90 GM TUBE TP SCH (09:14)
[2022-03-22 12:00] VITALS: BP 125/68
[2022-03-22] MEDS: Magnesium 1GM/D5W 100ML PREMIX 100 ML IV SCH ×4 (12:40→16:37)
[2022-03-22] MEDS: POTASSIUM CHLORIDE 20 MEQ POWDER PACKET NG SCH ×3 (13:29→15:25)
[2022-03-22] MEDS: IV D5W 1,000 ML IV PRN (15:20)
[2022-03-22 16:00] VITALS: BP 125/68
[2022-03-22] MEDS ORDERED: NEUTRA PHOS 1 POWD.PACKET NG ONE (16:30)
[2022-03-22] MEDS ORDERED: POTASSIUM CHLORIDE 20 MEQ POWDER PACKET GT ONE (17:00)
--- NOTE | 2022-03-22 18:40 | NUR ---
RN CLOSING NOTE PATIENT IS RESTING IN BED. A/OX4. ON MECHANICAL VENT. NO RESP DISTRESS. PRN MORPHINE GIVEN FOR PAIN. PRN ATIVAN GIVEN. SINUS RHYTHM ON THE MONITOR @ 90'S. HUNG DRAINING TO GRAVITY, YELLOW WITH SEDIMENT AND CLOUDY. COLOSTOMY BAG CHANGED, OUTPUT BROWN AND THIN. WOUND CARE DONE. GTUBE FEEDING JEVITY @50ML NO RESIDUAL. D5W@100. FINISHED K REPLACEMENT AND MAGNESIUM REPLACEMENT. BED IS LOW AND LOCKED, HOB ELEVATED IN SEMI PERALTA, SIDE RAILS UP, CALL LIGHT WITHIN REACH. WILL ENDORSE TO NEXT NURSE ON DUTY FOR CONTINUITY OF CARE.
[2022-03-22 20:00] VITALS: BP 141/80
[2022-03-22] MEDS ORDERED: Potassium Chloride 30 MEQ in IV D5W 1,000 ML IV SCH (22:00)
[2022-03-22] MEDS ORDERED: D5W IV SCH (23:30)
[2022-03-22] MEDS ORDERED: KCL IV SCH (23:30)
[2022-03-23] VITALS: BP 113/69
[2022-03-23] MEDS: MORPHINE SULFATE INJ 4 MG/ML DISP.SYRIN IV PRN ×4 (00:30→15:16)
[2022-03-23] MEDS: ALBUTEROL HALF STRENGTH 1.25 MG/3 ML VIAL.NEB NEB SCH ×3 (02:00→12:40)
[2022-03-23] MEDS: IPRATROPIUM NEB FS 0.5 MG/2.5 ML AMPUL.NEB NEB SCH ×3 (02:00→12:40)
[2022-03-23 04:00] VITALS: BP 100/61
[2022-03-23] MEDS ORDERED: Potassium Chloride 20 MEQ in IV D5W 1,000 ML IV SCH (06:30)
[2022-03-23] MEDS ORDERED: Potassium Chloride 30 MEQ in IV D5W 1,000 ML IV SCH (06:30)
[2022-03-23 06:44] LABS: CREATININE 0.3 mg/dL (0.6-1.3); MAGNESIUM 1.8 mg/dL (1.8-2.4); PHOSPHORUS 1.7 mg/dL (2.5-4.9)
[2022-03-23] MEDS: METOCLOPRAMIDE HCL 10 MG/2 ML VIAL IV SCH ×2 (06:52→11:13)
[2022-03-23] MEDS: LORAZEPAM INJ 2 MG/ML VIAL IV PRN (06:59)
[2022-03-23 07:14] LABS: POTASSIUM 3.3 mmol/L (3.5-5.1)
[2022-03-23 08:00] VITALS: BP 106/56
--- NOTE | 2022-03-23 08:11 | NUR ---
RN OPENING NOTE PATIENT IS RESTING IN BED. A/OX4. ON MECHANICAL VENT. NO RESP DISTRESS. SINUS RHYTHM ON MONITOR. HUNG DRAINING TO GRAVITY, YELLOW WITH SEDIMENT AND CLOUDY. COLOSTOMY BAG, OUTPUT ORANGE AND THIN. GTUBE FEEDING INFUSING JEVITY @50ML. D5W PLUS 20MEQ OF POTASSIUM CHLORIDE RUNNING AT 75ML/HR. SAFETY MEASURES IN PLACE. WILL CONTINUE TO MONITOR.
[2022-03-23 08:37] LABS: BASOPHILS % (AUTO) 0.1 % (0.0-2.0); EOSINOPHILS % (AUTO) 1.4 % (0.0-6.0); HEMATOCRIT 26 % (33-45); HEMOGLOBIN 8.3 g/dL (11.5-14.8); LYMPHOCYTES # (AUTO) 0.5 K/uL (0.8-4.8); LYMPHOCYTES % (AUTO) 5.8 % (20.0-44.0); MEAN CORPUSCULAR HGB CONC 32 g/dl (31.0-36.0); MEAN CORPUSCULAR VOLUME 90 fL (82-100); MONOCYTES # (AUTO) 0.1 K/uL (0.1-1.30); MONOCYTES % (AUTO) 0.9 % (2.0-12.0); NEUTROPHILS # (AUTO) 7.3 K/uL (1.8-8.9); NEUTROPHILS % (AUTO) 91.8 % (43.0-81.0); PLATELET COUNT (AUTO) 117 K/uL (150-450); RED BLOOD CELL COUNT(AUTO) 2.85 MIL/uL (4.0-5.2)
[2022-03-23] MEDS: DOCUSATE SODIUM LIQ 100 MG/10 ML UDC GT SCH (08:53)
[2022-03-23] MEDS: CHLORHEXIDINE GLUCONATE 15 ML UDC MM SCH (08:53)
[2022-03-23] MEDS: HYDROCORTISONE SOD SUCCINATE 100 MG/2 ML VIAL IV SCH (08:53)
[2022-03-23] MEDS: PANTOPRAZOLE 40 MG/PACK PACK GT SCH (08:53)
[2022-03-23] MEDS: MULTIVITAMINS,THERAGRAN 1 UDTAB TABLET GT SCH (08:54)
[2022-03-23] MEDS: MIDODRINE HCL (5MG) 5 MG TABLET NG SCH ×2 (08:54→12:27)
[2022-03-23] MEDS: FLUDROCORTISONE 0.1 MG TABLET PO SCH (08:54)
[2022-03-23] MEDS: FLUCONAZOLE (100 MG) 100 MG TABLET PO SCH (08:54)
[2022-03-23] MEDS: FOLIC ACID 1 MG TABLET PO SCH (08:54)
[2022-03-23] MEDS: ZINC SULFATE 220 MG CAPSULE NG SCH (08:54)
[2022-03-23] MEDS: GABAPENTIN 100 MG CAPSULE PO SCH (08:54)
[2022-03-23] MEDS: ASCORBIC ACID 500 MG TABLET NG SCH (08:54)
[2022-03-23] MEDS: FUROSEMIDE 40 MG/4 ML VIAL IV SCH (08:55)
[2022-03-23] MEDS: HYDROGEL DRESSING 90 GM TUBE TP SCH (08:55)
[2022-03-23] MEDS ORDERED: POTASSIUM CHLORIDE 20 MEQ POWDER PACKET NG SCH (10:30)
--- NOTE | 2022-03-23 10:48 | NUR ---
pt did not tolerate SIMV. O2 saturation went to 76-79%. respirations 33. md notified.
--- NOTE | 2022-03-23 10:53 | NUR ---
unable to tolerate simv mode, pt. placed back to AC 22, VT 425, FIO2 40%, PEEP +5 due to increase work of breathing spo2 79%, rr 35 bpm. RN aware at bedside. Addendum: 03/23/22 at 1056 by FABIANO FELDER RT Amended: Links added.
[2022-03-23 12:00] VITALS: BP 136/57
--- NOTE | 2022-03-23 12:16 | NUR ---
Discharge Planning: SW called the patient's mother, Jose Eduardo Enciso [phone] to discuss DC plan. Jose Eduardo expressed feeling frustrated and stated that the pt. was transferred to [facility] for rehab and she would like the pt. to return to [facility]. SW used active listening and validated her emotions. SW explained that pt. was denied by facilities in [facility] as there is not bed availability. SW explained that pt. may have to be on waitlist at facilities and wait until bed becomes available. Mother stated that she would like for the pt. to remain at [facility] until bed becomes available in [facility] placement. SW notified mother that per MD the pt. is medically cleared and stable for discharge and no longer meets criteria for inpatient hospitalization. DONTA notified the mother that pt. has been accepted to [facility] [phone] and SW there can help with finding usp placement so that pt. can receive appropriate level of care while waiting for bed availability. Mother stated that the previous placement were unsuccessful at moving pt. so she does not believe the new facility would be able to help either. SW encouraged mother to appeal the discharge and mother stated "it is not my responsibility". Per mother she is not the POA and the pt. can make her own decisions. CM had previously encouraged mother to call and appeal as pt. is non verbal and unable to do the appeal and the mother refused. DONTA and Case Case Management met with pt. at bedside. The pt. is alert & oriented. CM spoke with pt. regarding accepted to [facility] [phone] and pt. mouthed "okay" in agreement to placement. Patient was informed that she is medically cleared and stable for discharge. Pt. expressed understanding and is agreeable to discharge plan. Pt. asked what time the pickling solution maker was and she was informed by [facility] that ambulance transportation would be here by 3 pm. Pt. nodded "yes". Pt. requested to speak to her mother and the charge nurse was notified to assist with facilitating call with mother. SS will be available as needed.
[2022-03-23 12:27] VITALS: BP 136/57
[2022-03-23] MEDS ORDERED: FLUC100T8 PO (12:53)
[2022-03-23] MEDS ORDERED: ASCO500T21 NG (12:53)
[2022-03-23] MEDS ORDERED: ALBU1.25 NEB (12:53)
[2022-03-23] MEDS ORDERED: MIDO5TAB4 NG (12:53)
[2022-03-23] MEDS ORDERED: MULT-24 GT (12:53)
[2022-03-23] MEDS ORDERED: METO-295 PO (12:53)
[2022-03-23] MEDS ORDERED: Zinc Sulfate NG (12:53)
[2022-03-23] MEDS ORDERED: Ergocalciferol (Vitamin D 2) NG (12:53)
[2022-03-23] MEDS ORDERED: IPRA0.2S9 NEB (12:53)
--- NOTE | 2022-03-23 13:10 | NUR ---
DONTA received call from Jaycee Velez [phone] who was following up with previous SOC 341 made this admission and requested DC plan. DONTA explained discharge plan to Jaycee and situation regarding mother's desired placement in [facility]. Jaycee stated that if the pt. is alert & oriented and she consents to placement than [facility] would have to follow patient's wishes regardless of mother's request. Noted.
--- NOTE | 2022-03-23 15:50 | NUR ---
DC NOTES PT DC'D TO [facility]. IN STABLE CONDITION. PT GOING TO ROOM 407. DC INSTRUCTIONS GIVEN AND EXPLAINED. ALL PAPERWORK SIGNED AND COMPLETED. HUNG REMOVED. IV LINES STILL INTACT. REPORT GIVEN TO AMBULANCE CREW ACCORDINGLY. [facility] RN DID NOT ANSWER PHONE AFTER 7 ATTEMPTS. RN REPORT NOT GIVEN. DIRECTED AMBULANCE CREW TO GIVE REPORT ONCE IN CONTACT WITH [facility]. RN. PT LEFT UNIT ON [facility] IN STABLE CONDITION.
[2022-03-23] MEDS ORDERED: FURO-144 PO (15:56)
[2022-03-23] MEDS ORDERED: NEUTRA PHOS 1 POWD.PACKET NG ONE (16:00)
== END 2022-03-23 16:20 | DRG 870 ==
LOC: ER 00:35 → UNDOADMIN 08:44 → TRANSITION 08:44 → MEDSG1 10:12 → TELE1 10:24 → TELE-TD 02-25 02:48 → ICU 02-25 05:22 → TELE1 03-03 18:54 → ICU 03-05 15:36 → TELE-TD 03-07 19:25 → TELE1 03-08 12:09
PROVIDERS: ADMIT Nurse Practitioner Acute Care; ATTEND Student in an Organized Health Care Education/Training Program
PROC: 06H033Z Insertion of Infusion Device into Inferior Vena Cava, Percutaneous Approach (ICD-10-PCS; 2022-02-19)
PROC: B549ZZA Ultrasonography of Inferior Vena Cava, Guidance (ICD-10-PCS; 2022-02-19)
PROC: 05HC33Z Insertion of Infusion Device into Left Basilic Vein, Percutaneous Approach (ICD-10-PCS; 2022-02-23)
PROC: 5A1955Z Respiratory Ventilation, Greater than 96 Consecutive Hours (ICD-10-PCS; principal; 2022-02-25)
PROC: 02HV33Z Insertion of Infusion Device into Superior Vena Cava, Percutaneous Approach (ICD-10-PCS; 2022-02-25)
PROC: B548ZZA Ultrasonography of Superior Vena Cava, Guidance (ICD-10-PCS; 2022-02-25)
PROC: 30233N1 Transfusion of Nonautologous Red Blood Cells into Peripheral Vein, Percutaneous Approach (ICD-10-PCS; 2022-02-26)
PROC: 6A550Z2 Pheresis of Platelets, Single (ICD-10-PCS; 2022-02-26)
PROC: 30233K1 Transfusion of Nonautologous Frozen Plasma into Peripheral Vein, Percutaneous Approach (ICD-10-PCS; 2022-02-27)
PROC: 0W993ZX Drainage of Right Pleural Cavity, Percutaneous Approach, Diagnostic (ICD-10-PCS; 2022-02-28)
PROC: 0DH63UZ Insertion of Feeding Device into Stomach, Percutaneous Approach (ICD-10-PCS; 2022-03-06)
PROC: 5A1945Z Respiratory Ventilation, 24-96 Consecutive Hours (ICD-10-PCS; 2022-03-17)
PROC: 5A1945Z Respiratory Ventilation, 24-96 Consecutive Hours (ICD-10-PCS; 2022-03-20)
DX: A41.9 Sepsis, unspecified organism (principal); D65 Disseminated intravascular coagulation [defibrination syndrome]; L89.893 Pressure ulcer of other site, stage 3; L89.154 Pressure ulcer of sacral region, stage 4; L89.613 Pressure ulcer of right heel, stage 3; N17.0 Acute kidney failure with tubular necrosis; R53.2 Functional quadriplegia; J96.20 Acute and chronic respiratory failure, unspecified whether with hypoxia or hypercapnia; E43 Unspecified severe protein-calorie malnutrition; J15.6 Pneumonia due to other Gram-negative bacteria; L89.104 Pressure ulcer of unspecified part of back, stage 4; L89.623 Pressure ulcer of left heel, stage 3; T80.211A Bloodstream infection due to central venous catheter, initial encounter; E87.1 Hypo-osmolality and hyponatremia; G93.40 Encephalopathy, unspecified; N39.0 Urinary tract infection, site not specified; B37.49 Other urogenital candidiasis; E27.40 Unspecified adrenocortical insufficiency; E87.0 Hyperosmolality and hypernatremia; E87.4 Mixed disorder of acid-base balance; J81.1 Chronic pulmonary edema; J90 Pleural effusion, not elsewhere classified; D61.818 Other pancytopenia; D68.59 Other primary thrombophilia; R57.9 Shock, unspecified; Z93.1 Gastrostomy status; Y84.8 Other medical procedures as the cause of abnormal reaction of the patient, or of later complication, without mention of misadventure at the time of the procedure; Y92.129 Unspecified place in nursing home as the place of occurrence of the external cause; D63.8 Anemia in other chronic diseases classified elsewhere; E16.2 Hypoglycemia, unspecified; E83.42 Hypomagnesemia; E86.1 Hypovolemia; E87.5 Hyperkalemia; E87.6 Hypokalemia; E87.70 Fluid overload, unspecified; E88.09 Other disorders of plasma-protein metabolism, not elsewhere classified; F32.A Depression, unspecified; G89.4 Chronic pain syndrome; I12.9 Hypertensive chronic kidney disease with stage 1 through stage 4 chronic kidney disease, or unspecified chronic kidney disease; K29.70 Gastritis, unspecified, without bleeding; K74.60 Unspecified cirrhosis of liver; L93.0 Discoid lupus erythematosus; N18.9 Chronic kidney disease, unspecified; R13.10 Dysphagia, unspecified; R62.7 Adult failure to thrive; Y95 Nosocomial condition; Z20.822 Contact with and (suspected) exposure to COVID-19; Z74.01 Bed confinement status; B95.2 Enterococcus as the cause of diseases classified elsewhere; Z86.2 Personal history of diseases of the blood and blood-forming organs and certain disorders involving the immune mechanism; Z86.61 Personal history of infections of the central nervous system; Z93.3 Colostomy status; Z93.0 Tracheostomy status; K21.9 Gastro-esophageal reflux disease without esophagitis; R26.9 Unspecified abnormalities of gait and mobility; Z88.8 Allergy status to other drugs, medicaments and biological substances; Z91.19 Patient's noncompliance with other medical treatment and regimen
CPT/HCPCS: 31720; 36410; 36415; 36569; 36600; 43246; 70450-TC; 71045-TC; 71250-TC; 76700-TC; 76770-TC; 80048-TC; 80053-TC; 80076-TC; 80202-TC; 81001; 82533; 82607-TC; 82728-TC; 82784; 82803-TC; 82962-TC; 83010; 83540-TC; 83605-TC; 83615-TC; 83735-TC; 83880; 84100-TC; 84132-TC; 84155; 84155-TC; 84165; 84443-TC; 84702-TC; 84703-TC; 85025-TC; 85027-TC; 85378-TC; 85385-TC; 85396; 85610-TC; 85730-TC; 86225; 86235; 86334; 86431-TC; 86706; 86803; 86850-TC; 87040-TC; 87070-TC; 87075-TC; 87081-TC; 87086-TC; 87102-TC; 87116; 87186-TC; 87206; 87340; 89051-TC; 93307-TC; 93970-TC; 94002-TC; 94003-TC; 94640-TC; 94760-TC; 94762-TC; 94799-TC; 99082-TC; A4216; A4623; A6248; A6253; A6403; A7526; G0378; J0610; J0692; J0696; J0713; J0770; J0878; J1265; J1644; J1720; J1940; J2060; J2185; J2270; J2704; J2765; J3370; J3430; J3475; J3480; J3490; J7030; J7040; J7042; J7050; J7060; J7070; J7120; P9016; P9017; P9034; P9047; Q0163